=== PATIENT | female | born 1935 | race Caucasian/White ===

== ENCOUNTER 2020-01-23 09:24 | Outpatient (REF) | payer MEDICARE, MEDICAID, SELFPAY ==
[2020-01-23 10:31] LABS: MANUAL DIFF FLAG NO
[2020-01-23 10:46] LABS: Basophils Absolute Auto 0.1 X10*3/uL (0.0-0.2); Basophils Percent Auto 1.5 % (0-2); Eosinophils Absolute Auto 0.2 X10*3/uL (0.0-0.4); Hematocrit 35.9 % (37-47); Hemoglobin 11.6 g/dl (12.0-16.0); Imm Gran Abs Auto 0.03 X10*3/uL (0.00-0.03); Imm Gran Pct Auto 0.5 % (0.0-0.4); Lymphocytes Absolute Auto 1.3 X10*3/uL (1.2-4.9); Lymphocytes Percent Auto 21.8 % (20-40); Mean Corpuscular HGB Conc 32.3 g/dl (31.0-35.0); Mean Corpuscular Hemoglobin 30.4 pg (27.0-33.0); Monocytes Absolute Auto 0.4 X10*3/uL (0.1-1.2); Monocytes Percent Auto 6.6 % (2-11); Neutrophils Absolute Auto 4.1 X10*3/uL (2.0-8.3); Neutrophils Percent Auto 66.6 % (45-73); Platelet Count 210 X10*3/uL (160-400); Red Blood Count 3.82 X10*6/uL (4.20-5.50); Red Cell Distribution Width 12.6 % (11.0-16.0); White Blood Count 6.1 X10*3/uL (4.8-10.8)
[2020-01-23 11:07] LABS: Alanine Aminotransferase 22 U/L (0-31); Albumin Level 4.3 g/dL (3.5-5.0); Alkaline Phosphatase 56 U/L (39-117); Anion Gap 13 (12-20); Aspartate Amino Transferase 22 U/L (5-31); Bilirubin Total 0.6 mg/dL (0.0-1.0); Blood Urea Nitrogen 20 mg/dL (9-16); Calcium 9.1 mg/dL (8.4-10.2); Carbon Dioxide 27 mmol/L (22-29); Chloride 106 mmol/L (96-108); Cholesterol 203 mg/dL; Estimated Glomerular Filt Rate > 60; Glucose Fasting 84 mg/dL (60-99); HDL Cholesterol 63 mg/dL; LDL Cholesterol Calculated 122 mg/dl; Potassium 4.7 mmol/l (3.3-5.1); Sodium 141 mmol/L (135-145); Total Protein 6.4 g/dL (6.5-8.0); Triglycerides 93 mg/dL
== END 2020-01-23 09:25 | disposition home or self-care (01) ==
LOC: HO.LAB 09:24
PROVIDERS: PCP Internal Medicine Medical Oncology; Visit Provider Internal Medicine Medical Oncology
DX: Z00.00 Encounter for general adult medical examination without abnormal findings (principal); Z13.220 Encounter for screening for lipoid disorders
CPT/HCPCS: 36415; 80053; 80061; 85025

== ENCOUNTER 2020-12-15 07:14 | Inpatient (IN) | payer MEDICARE, MEDICAID, SELFPAY ==
[2020-12-15] VITALS (7 sets, daily range): BP systolic 126–192; BP diastolic 54–84; PULSE 71–91; RESP 16–24; TEMP 36.4–37; O2SAT 93–98; BMI 26.8
--- NOTE | ~2020-12-15 | XR_ITS ---
EXAMINATION: XR CHEST CLINICAL INFORMATION: Advanced ET tube 2 cm . Recheck. COMPARISON: 12/20/2020 TECHNIQUE: Frontal view of the chest was obtained. FINDINGS: ET tube terminates 2.5 cm from the oracio. NG tube tip terminates in the body of the stomach. The side port resides in the distal esophagus. Again seen are patchy consolidative opacities within the midlungs and right lung base, concerning for aspiration. No pneumothorax or pleural effusion. Cardiac and mediastinal contours are unchanged. Mild calcific atherosclerosis in the thoracic aorta. XR/XR chest 1V IMPRESSION: ET tube terminates 2.5 cm from the oracio. NG tube side-port terminates in the distal esophagus. Recommend advancement by 5 cm. Multifocal airspace consolidation, most consistent with aspiration
--- NOTE | ~2020-12-15 | XR_ITS ---
EXAMINATION: XR ABDOMEN KUB CLINICAL INDICATION: NG tube placement COMPARISON: CXR from 11/21/2020. Abdomen CT from 12/19/2020. TECHNIQUE: AP view of the abdomen. FINDINGS: The tip of the NG tube is in the proximal stomach. The side-port of the tube is approximately 5-6 cm distal to the esophagogastric junction. There is gas within loops of small and large bowel. A small bowel loop in the mid to lower abdomen measures up to approximately 3.5 cm, although measurement is difficult due to overlap of loops of bowel. Otherwise, the visualized bowel loops are in the normal size range. The gaseous distention of small bowel has markedly improved compared to 12/19/2020. Skin marisa project over the right inguinal region. No pneumoperitoneum is seen on this single view of the abdomen (patient in supine position). No acute findings in the visualized degenerated spine. The left femoral fixation hardware is partially included in the [id number]. XR/XR KUB IMPRESSION: * NG tube within the proximal stomach. * Significant improvement in previously observed small bowel obstruction compared 12/19/2020. There is mild residual gaseous distention of bowel.
--- NOTE | ~2020-12-15 | CT_ITS ---
EXAMINATION: CT ABDOMEN AND PELVIS WITH CONTRAST CLINICAL INFORMATION: Abdominal pain COMPARISON: None TECHNIQUE: Multidetector volumetric images were obtained from the superior aspect of the liver through the pubic symphysis following administration 85 mL of Omnipaque 350 intravenous contrast. Sagittal and coronal reformatted images were obtained on the technologist's workstation. Oral contrast: No This CT examination was performed using dose optimization techniques as appropriate, variously including the following: *Automated exposure control *Adjustment of mA and/or kV according to patient size (this includes techniques or standardized protocols for targeted exams where dose is matched to indication/reason for exam; i.e. extremities or head) *Use of iterative reconstruction technique DLP: 699 mGy-cm FINDINGS: Study limited by motion artifact. LUNG BASES: Small right pleural effusion. Right base atelectasis. Normal heart size. LIVER, GALLBLADDER, AND BILIARY TREE: The liver is normal in size, shape, and attenuation. No focal hepatic lesion or biliary ductal dilatation is present. Gallbladder either collapsed or surgically absent. No biliary ductal dilatation. PANCREAS: Unremarkable. SPLEEN: Unremarkable. ADRENAL GLANDS: Unremarkable. KIDNEYS AND URETERS: The kidneys are normal in size, shape, and attenuation. No hydronephrosis, hydroureter, or calculi seen. No perinephric stranding. BLADDER: Unremarkable. GASTROINTESTINAL TRACT: The stomach is distended with fluid. Numerous dilated fluid-filled loops of small bowel are seen throughout the abdomen with multiple air-fluid levels. There are fecalized small bowel contents leading to the transition in the right lower quadrant where a short segment of distal small bowel is seen within a right inguinal hernia. Distal to the hernia, the small bowel and colon are collapsed. ABDOMINAL WALL: Small fat-containing umbilical hernia. Right inguinal hernia containing a short segment of small bowel. The loop of small bowel within the hernia distended with fluid. There is adjacent fluid and fat stranding. LYMPH NODES: Normal. VASCULAR: Nearly circumferential calcified atherosclerotic changes of the aorta. No aneurysm or dissection. PELVIC VISCERA: Uterine calcifications likely reflect calcified leiomyomata. No adnexal mass. OSSEOUS STRUCTURES: Convex left thoracolumbar scoliosis. Multilevel degenerative changes. Grade 1 anterolisthesis of L3 on L4, L4 on L5, and L5-S1. ORIF of the left hip. Degenerative changes of the bilateral sacroiliac joints. CT/CT abdomen pelvis w con IMPRESSION: High-grade distal small bowel obstruction secondary to a short segment of small bowel within a right inguinal hernia. The loop within the hernia is distended with fluid and there is adjacent fluid and fat stranding. Recommend emergent surgical consultation. The findings and recommendations were discussed with Anup Jewell MD by telephone at 12/19/2020 5:13 PM and it was ascertained that the content and urgency of the report was understood at the time of direct communication.
--- NOTE | ~2020-12-15 | XR_ITS ---
EXAMINATION: XR CHEST CLINICAL INFORMATION: Follow-up aspiration COMPARISON: 12/20/2020 TECHNIQUE: Frontal view of the chest was obtained. FINDINGS: Left subclavian central venous catheter terminates near the cavoatrial junction. Cardiac leads overlie the chest. Lungs are well expanded. Patchy bilateral airspace opacities are present, right greater than left. These are increased from prior. No significant pleural effusion. No pneumothorax. The cardiomediastinal silhouette is unchanged, with a tortuous aorta. XR/XR chest 1V IMPRESSION: Increasing bilateral airspace opacities.
--- NOTE | ~2020-12-15 | XR_ITS ---
EXAMINATION: XR CHEST CLINICAL INFORMATION: Shortness of breath. COMPARISON: 12/15/2020 portable chest. TECHNIQUE: Frontal view of the chest was obtained. FINDINGS: Mild linear markings are seen in the left mid and lower lung sandoval. The right lung mild to moderate thoracic dextro scoliosis and multilevel degenerative changes without significant change. Is clear. The heart is mildly enlarged. Mild atherosclerosis and ectasia of the aortic arch is again noted. XR/XR chest 1V IMPRESSION: Mild linear markings in the left mid and lower lung sandoval suggesting atelectasis/scarring. No acute cardiopulmonary process.
--- NOTE | ~2020-12-15 | XR_ITS ---
EXAMINATION: XR CHEST CLINICAL INFORMATION: intrs op aspiration, ngt, et location COMPARISON: 12/18/2020 TECHNIQUE: Frontal view of the chest was obtained. FINDINGS: ET tube tip terminates 4 cm from the oracio. The NG tube tip terminates in the stomach. The side-port is situated within the distal esophagus. Consolidative patchy airspace opacities in the right midlung and right lung base as well as the left midlung may correspond to aspiration. No pneumothorax or pleural effusion. Cardiac silhouette is within normal limits in size. Calcific atherosclerosis is noted in the thoracic aorta. Bones are osteopenic. Multilevel degenerative spondylosis in the thoracic spine. XR/XR chest 1V IMPRESSION: ET tube terminates 4 cm from the oracio. The side port of the NG tube terminates in the distal esophagus. Recommend advancement by 5 cm. Patchy airspace consolidation in the right lung base and midlungs bilaterally, concerning for aspiration.
--- NOTE | ~2020-12-15 | XR_ITS ---
EXAMINATION: XR CHEST CLINICAL INFORMATION: Hemoptysis COMPARISON: Chest radiographs 02/16/2015 TECHNIQUE: Portable upright AP view of the chest was obtained. FINDINGS: Patient is slightly rotated to left. There is no pneumothorax. No free air beneath the diaphragm. The lungs are clear and the vascularity is normal. There is no airspace solid lesion or groundglass opacity or effusion. Visualized hilar and mediastinal contours are unremarkable. No acute bony abnormality. XR/XR chest 1V IMPRESSION: Unremarkable examination.
--- NOTE | ~2020-12-15 | XR_ITS ---
EXAMINATION: XR CHEST CLINICAL INFORMATION: Line placement COMPARISON: Previous chest x-ray, most recent from yesterday TECHNIQUE: Frontal view of the chest was obtained. FINDINGS: There is a new left subclavian line with tip projecting over the SVC. There is an endotracheal tube with tip 3.5 cm above the oracio. There is a nasogastric tube with tip projecting over the GE junction and should be advanced further into the stomach. The cardiac and mediastinal contours are stable. There is bilateral multilobar airspace disease probably representing pneumonia, right greater than left. This does not appear appreciably changed. There is no pleural effusion or pneumothorax. There is a thoracolumbar scoliosis and degenerative changes of the spine. XR/XR chest 1V IMPRESSION: Left subclavian line projects over SVC. No pneumothorax. Nasogastric tube tip projects over the proximal stomach/GE junction and should be advanced further into the stomach. Satisfactory position of endotracheal tube. No change in bilateral multilobar airspace disease probably representing pneumonia.
--- NOTE | ~2020-12-15 | US_ITS ---
EXAMINATION: US VENOUS WITH DOPPLER UPPER EXTREMITY, LEFT CLINICAL INFORMATION: Left upper extremity swelling. COMPARISON: None TECHNIQUE: Ultrasound of the upper extremity is performed using compression sonography and color and pulse Doppler flow with assessment of augmentation of flow. There is also imaging and Doppler assessment of the jugular and subclavian veins. Spectral analysis with color-flow imaging is performed. FINDINGS: The left subclavian vein was suboptimally evaluated secondary to the presence of a left-sided port. The left internal jugular vein shows positive occlusive deep venous thrombosis. The left axillary, brachial and basilic veins were not seen. The proximal and distal left cephalic vein were suboptimally visualized. The left radial and ulnar veins are patent. Mild to moderate subcutaneous edema is seen in the left forearm. If the patient's symptoms progress, a followup ultrasound in 5 -7 days might be of value to exclude proximal propagation from a nonvisualized distal arm vein. US/US venous duplex UE LT IMPRESSION: 1. Limited study showing positive deep venous thrombosis in the left internal jugular vein. 2. Suboptimal evaluation of the left subclavian, axillary and brachial veins.
--- NOTE | 2020-12-15 07:28 | ECG_ITS ---
Test Reason : ABDOMINAL PAIN Blood Pressure : / mmHG Vent. Rate : 075 BPM Atrial Rate : 000 BPM P-R Int : 000 ms QRS Dur : 098 ms QT Int : 392 ms P-R-T Axes : 000 039 056 degrees QTc Int : 437 ms Atrial fibrillation with a competing junctional pacemaker Abnormal ECG No previous ECGs available Referred By: Stephen Dooley Electronically Signed By:TYRONE SU MD
--- NOTE | 2020-12-15 07:31 | ED_ITS ---
HPI - Nausea/Vomiting/Diarrhea General Chief complaint: Nausea/Vomiting/Diarrhea Stated complaint: N/V/ABD PAIN X'S 3 DAYS, NO: FEVER/CHILLS/EXPOSURE Time Seen by Provider: 12/15/20 07:27 Source: patient Mode of arrival: ambulatory Limitations: no limitations History of Present Illness HPI Narrative: 85-year-old female came in for evaluation of vomiting. Symptoms started 3 days ago with coffee-ground vomiting constantly for the past 3 days, vomiting is worsening with p.o. intake, associated with nausea but no di arrhea, mild epigastric pain. Never had this symptoms in the past, patient declined any new medication. Patient declined drinking alcohol. Related Data Home Medications Medication Instructions Recorded Confirmed budesonide-formoterol HFA 80 2 puff INHALATION BID 12/15/20 12/15/20 mcg-4.5 mcg/actuation aerosol inhaler (Symbicort) Allergies Allergy/AdvReac Type Severity Reaction Status Date / Time No Known Allergies Allergy Unverified 10/30/19 16:28 Shellfish Allergy Unknown Uncoded 06/15/15 00:00 Review of Systems Review of Systems: All other systems are reviewed and are negative Constitutional: Reports as per HPI and Reports no additional constitutional complaints Eyes: Reports as per HPI and Reports no additional eye complaints Reports system reviewed and no additional complaints, except as documented Cardiovascular: Reports as per HPI and Reports no additional cardiovascular complaints Respiratory: Reports as per HPI and Reports no additional respiratory complaints Gastrointestinal: Reports as per HPI and Reports no additional gastrointestinal complaints Genitourinary: Reports no additional female genitourinary complaints Musculoskeletal: Reports no additional musculoskeletal complaints Skin/Breast: Reports system reviewed and no additional complaints, except as docu Psychiatric: Reports no additional psychiatric complaints Endocrine: Reports no additional endocrine complaints Hematologic/Lymphatic: Reports no additional hematologic/lymphatic complaints Allergic/Immunologic: Reports no additional allergic/immunologic complaints Reports system reviewed and no additional complaints, except as documented and Reports Abnormal speech present [facility] Social History Social History Smoked in Last 30 Days: No Use of substances other than those prescribed or required for medical reasons: No Advance Directives: Yes Advance Directives Information Provided: Yes Advance Directives on File: No Physical Exam Vital Signs: Vital Signs: Last Vital Signs Temp 97.8 F 12/15/20 07:21 Pulse 71 12/15/20 11:06 Resp 24 H 12/15/20 08:53 BP 140/77 H 12/15/20 11:06 Pulse Ox 96 12/15/20 08:53 Body Mass Index 26.8 Vital signs have been reviewed as appeared to be correct. Blood pressure normal. Heart rate normal. Respiration rate normal. Temperature normal. Oxygen saturation normal. Appearance: Alert. Oriented X3. No acute distress. Head: Normal external exam. Normocephalic. Atraumatic. No [place] signs noted. No raccoon eyes noted Eyes: PERRLA. EOMI. Conjunctiva and sclera normal. Eyelids normal. ENT: TM's Normal. Pharynx normal. Uvula midline. Moist mucous membranes. No trismus noted. No drooling noted. No muffled voice noted. Neck: Normal inspection. Neck supple. FROM. No adenopathy. Thyroid Normal. No meningeal signs. No neck mass noted. CVS: Normal heart rate and rhythm. Heart sound normal. No murmurs noted. Pulses normal throughout. Respiratory: No respiratory distress. Painless inspiration. Breath sounds normal. No wheezes/rales/rhonchi noted. Chest nontender. No accessory muscle usage noted or decreased air movement noted. Abdomen: Soft, mild epigastric tenderness, no rebound tenderness, no guarding. Bowel sounds normal in all 4 quadrants. No distention noted. No organomegaly noted. No visible injury noted. Back: No CVA tenderness. Full range of motion noted. Skin: Skin warm and dry. Normal skin color. Normal skin turgor. No rash es/lesions/lacerations noted. Extremities: No lower extremity edema. Extremities exhibit normal range of motion. Extremities nontender. Neuro: Oriented X 3. Cranial nerve exam: II-XII are grossly intact No motor deficit. No sensory deficit. Reflexes normal. Course Course Course Narrative: Assessment and plan. [age] year female came in with coffee-ground vomiting and decreased p.o. intake, patient while in the emergency department has no vomiting, patient stable with signs, stable H&H. Will start the patient on PPI, admit for GI consultation. Hyponatremia will gently hydrate with normal saline at a slow rate. MDM - Nausea/Vomiting/Diarrhea Lab Data Attestation: I reviewed the patient's lab results. Result diagrams: 12/15/20 07:39 12/15/20 07:39 Labs: Lab Results 12/15/20 12/15/20 12/15/20 Range/Units 07:34 07:39 07:39 WBC 15.1 H (4.8-10.8) X10*3/uL RBC 4.54 (4.20-5.50) X10*6/uL Hgb 13.7 (12.0-16.0) g/dl Hct 40.1 (37.0-47.0) % MCV 88.3 (80.0-98.0) fL MCH 30.2 (27.0-33.0) pg MCHC 34.2 (31.0-35.0) g/dl RDW 11.9 (11.0-16.0) % Plt Count 233 (160-400) X10*3/uL MPV 9.5 (9.4-12.3) fL Immature Gran % (Auto) 0.5 H (0.0-0.4) % Neut % (Auto) 84.0 H (45-73) % Lymph % (Auto) 6.5 L (20-40) % [place] % (Auto) 8.7 (2-11) % Eos % (Auto) 0.1 (0-4) % Baso % (Auto) 0.2 (0-2) % Lymph # (Auto) 1.0 L (1.2-4.9) X10*3/uL [place] # (Auto) 1.3 H (0.1-1.2) X10*3/uL Eos # (Auto) 0.0 (0.0-0.4) X10*3/uL Baso # (Auto) 0.0 (0.0-0.2) X10*3/uL Abs Immat Gran (auto) 0.07 H (0.00-0.03) X10*3/uL Absolute Neuts (auto) 12.67 H (2.0-8.3) x10*3/uL Absolute Nucleated RBC 0.000 (0.0-0.012) X10*3/uL Nucleated RBC % (auto) 0.0 (0.0-0.2) /100WBC PT (9.9-13.0) SEC INR (0.9-1.1) APTT (24.1-38.0) SEC Sodium 123 L (135-145) mmol/L Potassium 3.6 (3.3-5.1) mmol/L Chloride 86 L (96-108) mmol/L Carbon Dioxide 26 (22-29) mmol/L Anion Gap 15 (12-20) BUN 23 H (9-16) mg/dL Creatinine 0.75 (0.5-1.4) mg/dL Estim Creat Clear Calc 56.9 Estimated GFR > 60 Random Glucose 130 H (60-115) mg/dL Calcium 8.9 (8.4-10.2) mg/dL Total Bilirubin 1.4 H (0.0-1.0) mg/dL Direct Bilirubin 0.6 H (0.0-0.5) mg/dL AST 31 D (5-31) U/L ALT 24 (0-31) U/L Alkaline Phosphatase 60 (39-117) U/L Troponin I High Sens (<3.5-17.0) ng/L Total Protein 6.3 L (6.5-8.0) g/dL Albumin 4.1 (3.5-5.0) g/dL Lipase 28 (8-78) U/L Urine Color Urine Appearance Urine pH (5.0-8.0) Ur Specific [place] (1.005-1.025) Urine Protein (NEG-TRACE) MG/DL Urine Glucose (UA) (NEG) MG/DL Urine Ketones (NEG) MG/DL Urine Blood (NEG) Urine Nitrite (NEG) Ur Leukocyte Esterase (NEG) COVID-19 ([facility]) Negative (Negative) COVID-19 Clin Com See Note 12/15/20 12/15/20 12/15/20 Range/Units 07:39 07:39 09:25 WBC (4.8-10.8) X10*3/uL RBC (4.20-5.50) X10*6/uL Hgb (12.0-16.0) g/dl Hct (37.0-47.0) % MCV (80.0-98.0) fL MCH (27.0-33.0) pg MCHC (31.0-35.0) g/dl RDW (11.0-16.0) % Plt Count (160-400) X10*3/uL MPV (9.4-12.3) fL Immature Gran % (Auto) (0.0-0.4) % Neut % (Auto) (45-73) % Lymph % (Auto) (20-40) % [place] % (Auto) (2-11) % Eos % (Auto) (0-4) % Baso % (Auto) (0-2) % Lymph # (Auto) (1.2-4.9) X10*3/uL [place] # (Auto) (0.1-1.2) X10*3/uL Eos # (Auto) (0.0-0.4) X10*3/uL Baso # (Auto) (0.0-0.2) X10*3/uL Abs Immat Gran (auto) (0.00-0.03) X10*3/uL Absolute Neuts (auto) (2.0-8.3) x10*3/uL Absolute Nucleated RBC (0.0-0.012) X10*3/uL Nucleated RBC % (auto) (0.0-0.2) /100WBC PT 11.4 (9.9-13.0) SEC INR 1.0 (0.9-1.1) APTT 27.5 (24.1-38.0) SEC Sodium (135-145) mmol/L Potassium (3.3-5.1) mmol/L Chloride (96-108) mmol/L Carbon Dioxide (22-29) mmol/L Anion Gap (12-20) BUN (9-16) mg/dL Creatinine (0.5-1.4) mg/dL Estim Creat Clear Calc Estimated GFR Random Glucose (60-115) mg/dL Calcium (8.4-10.2) mg/dL Total Bilirubin (0.0-1.0) mg/dL Direct Bilirubin (0.0-0.5) mg/dL AST (5-31) U/L ALT (0-31) U/L Alkaline Phosphatase (39-117) U/L Troponin I High Sens 6.4 (<3.5-17.0) ng/L Total Protein (6.5-8.0) g/dL Albumin (3.5-5.0) g/dL Lipase (8-78) U/L Urine Color YELLOW Urine Appearance HAZY Urine pH 6.5 (5.0-8.0) Ur Specific [place] 1.010 (1.005-1.025) Urine Protein TRACE (NEG-TRACE) MG/DL Urine Glucose (UA) NEG (NEG) MG/DL Urine Ketones 15 (NEG) MG/DL Urine Blood NEG (NEG) Urine Nitrite NEG (NEG) Ur Leukocyte Esterase NEG (NEG) COVID-19 ([facility]) (Negative) COVID-19 Clin Com Discharge Plan Discharge Clinical Impression: Hematemesis, Acute hyponatremia Patient Disposition: Admitted As Inpatient Prescriptions: No Action budesonide-formoterol [Symbicort] 80-4.5 mcg/actuation HFA aerosol inhaler 2 puff inhalation BID RF: 0
[2020-12-15 07:44] LABS: MANUAL DIFF FLAG NO
[2020-12-15 07:45] LABS: Basophils Percent Auto 0.2 % (0-2); Eosinophils Percent Auto 0.1 % (0-4); Hematocrit 40.1 % (37.0-47.0); Hemoglobin 13.7 g/dl (12.0-16.0); Imm Gran Abs Auto 0.07 X10*3/uL (0.00-0.03); Imm Gran Pct Auto 0.5 % (0.0-0.4); Lymphocytes Percent Auto 6.5 % (20-40); Mean Corpuscular HGB Conc 34.2 g/dl (31.0-35.0); Mean Corpuscular Hemoglobin 30.2 pg (27.0-33.0); Mean Corpuscular Volume 88.3 fL (80.0-98.0); Mean Platelet Volume 9.5 fL (9.4-12.3); Monocytes Absolute Auto 1.3 X10*3/uL (0.1-1.2); Monocytes Percent Auto 8.7 % (2-11); Neutrophils Absolute Auto 12.67 x10*3/uL (2.0-8.3); Platelet Count 233 X10*3/uL (160-400); Red Blood Count 4.54 X10*6/uL (4.20-5.50); Red Cell Distribution Width 11.9 % (11.0-16.0); White Blood Count 15.1 X10*3/uL (4.8-10.8)
[2020-12-15] MEDS: Pantoprazole Sodium 40 MG/10 ML VIAL IVPUSH (07:46)
[2020-12-15] MEDS: ondansetron HCL 4 MG/2 ML VIAL IVPUSH (07:46)
[2020-12-15] MEDS: 0.9 % Sodium Chloride 1,000 ML 999 ML IVCONT ×2 (07:46→12:08)
[2020-12-15 07:53] LABS: Prothrombin Time 11.4 SEC (9.9-13.0)
[2020-12-15 07:56] LABS: Partial Thromboplastin Time 27.5 SEC (24.1-38.0)
[2020-12-15 08:00] LABS: COVID-19 Test Negative (Negative); IDNOW Serial# 9DD0AD1C
[2020-12-15 08:16] LABS: Troponin-I High Sensitivity 6.4 ng/L (<3.5-17.0)
--- NOTE | 2020-12-15 08:16 | PHA.MEDREC ---
Pharmacy Consult ? Medication Reconciliation Pharmacy has completed the medication reconciliation. Thanks Gilberto Singleton Pharm D
[2020-12-15 08:26] LABS: Alanine Aminotransferase 24 U/L (0-31); Albumin Level 4.1 g/dL (3.5-5.0); Alkaline Phosphatase 60 U/L (39-117); Anion Gap 15 (12-20); Aspartate Amino Transferase 31 U/L (5-31); Bilirubin Direct 0.6 mg/dL (0.0-0.5); Bilirubin Total 1.4 mg/dL (0.0-1.0); Blood Urea Nitrogen 23 mg/dL (9-16); Calcium 8.9 mg/dL (8.4-10.2); Carbon Dioxide 26 mmol/L (22-29); Chloride 86 mmol/L (96-108); Creatinine Clr Calc Pharmacy 56.9; Estimated Glomerular Filt Rate > 60; Glucose Random 130 mg/dL (60-115); Lipase 28 U/L (8-78); Potassium 3.6 mmol/L (3.3-5.1); Sodium 123 mmol/L (135-145); Total Protein 6.3 g/dL (6.5-8.0)
[2020-12-15 09:34] LABS: Appearance Urine HAZY; Color Urine YELLOW; Glucose Urine UA NEG (NEG); Leukocyte Esterase Urine NEG (NEG); Nitrite Urine NEG (NEG); PH 6.5 (5.0-8.0); Urine Blood NEG (NEG); Urine Ketones 15 MG/DL (NEG); Urine Protein TRACE MG/DL (NEG-TRACE)
--- NOTE | 2020-12-15 16:24 | PM.GICN ---
History of Present Illness Data of Consult Service Date: 12/15/20 Requesting physician: Anup Jewell Primary Care Provider: Nayan Chavez MD HPI Reason for consult: coffee ground emesis 85 yr old f previously well being assessed for nausea and vomiting with coffee ground emesis She had been well up till weekend where she had several episodes of forceful vomiting. Later she noted several episodes of black colored emesis. She denied reflux, had mild epigastric pain. Appetite had been reduced. She denies melena, rectal bleeding, chest pain or SOB. She has been taking ibuprofen for years BID for joint pain on a daily basis. Labs revealed HGB 13, with hyponatremia of 123. BUn mildly elevated. Review of Systems Review of Systems: All other systems are reviewed and are negative Constitutional: Reports as per HPI and Reports no additional constitutional complaints Eyes: Reports as per HPI and Reports no additional eye complaints Reports system reviewed and no additional complaints, except as documented Cardiovascular: Reports as per HPI and Reports no additional cardiovascular complaints Respiratory: Reports as per HPI and Reports no additional respiratory complaints Gastrointestinal: Reports as per HPI and Reports no additional gastrointestinal complaints Genitourinary: Reports no additional female genitourinary complaints Musculoskeletal: Reports no additional musculoskeletal complaints Skin/Breast: Reports system reviewed and no additional complaints, except as docu Psychiatric: Reports no additional psychiatric complaints Endocrine: Reports no additional endocrine complaints Hematologic/Lymphatic: Reports no additional hematologic/lymphatic complaints Allergic/Immunologic: Reports no additional allergic/immunologic complaints Reports system reviewed and no additional complaints, except as documented and Reports Abnormal speech present Yes all other systems are reviewed and are negative PMFSH Family History Pertinent family history: Denies any family history Family history: reviewed and not pertinent Surgical History Surgical History (Updated 12/16/20 @ 05:57 by Jessica Wahl MD) No pertinent past surgical history Social History Social History Household Members: Other Housing: Other Housing Other:: [facility] Do you presently have visiting nurse or other home services: No Patient Tobacco Use Status: Never used Tobacco Second Hand Smoke Exposure: No Advance Directives Date on File: 12/16/20 service: No Current occupational status: other Meds Allergies Allergy/AdvReac Type Severity Reaction Status Date / Time No Known Allergies Allergy Unverified 10/30/19 16:28 Shellfish Allergy Unknown Uncoded 06/15/15 00:00 Active Medications: Current Medications Pharmacy Consult (Consult Rx Perform Med Rec) 1 each MISCELLANE ONCE PRN PRN Reason: Consult order Home Medications Medication Instructions Recorded Confirmed Last Taken Type budesonide-formoterol HFA 80 2 puff INHALATION BID 12/15/20 12/15/20 Unknown History mcg-4.5 mcg/actuation aerosol inhaler (Symbicort) Physical Exam Vital Signs: Vital Signs: Last Vital Signs Temp 97.6 F 12/15/20 14:35 Pulse 88 12/15/20 14:35 Resp 24 H 12/15/20 14:35 BP 144/68 H 12/15/20 14:35 Pulse Ox 93 12/15/20 14:35 Body Mass Index 26.8 EXAM: GENERAL: The patient is well developed and nontoxic. VITAL SIGNS:see workflow HEENT: Nonicteric sclerae, PERRLA, EOMI. Oropharynx clear. Moist mucous membranes. Conjunctivae appear well perfused. No thyroid mass. CHEST: Chest wall is nontender. HEART: Regular rate and rhythm without murmurs. LUNGS: Clear to auscultation bilaterally. ABDOMEN: Soft, positive bowel sounds, nontender, no organomegaly.no flank tenderness SKIN: No rash, no excessive bruising, petechiae, or purpura. NEUROLOGIC: Cranial nerves II-XII intact without motor/sensory deficit. PSych--nml Const: Other: No acute distress General: cooperative, no acute distress and alert Orientation/consciousness: patient oriented x3 Limitations: No language barrier HENMT: Other: Membranes moist oropharynx clear Head: Yes normocephalic and Yes atraumatic Eyes: General: appearance normal, both eyes and all related structures Pupils: Equal, round and reactive pupils present EOM: EOMs intact bilaterally Neck: Neck: Yes supple Resp: Other: Clear to auscultation bilaterally no rales rhonchi or wheezes Effort & Inspection: normal respiratory effort Auscultation: clear to auscultation bilaterally and diminished lung sounds Cardio: Other: No S4; positive S1-S2; no S3 murmurs or gallops Jugular venous distension: no JVD Rate: regular rate Rhythm: regular rhythm GI: Other: Soft nontender nondistended with normoactive bowel sounds Palpation (GI): Soft to palpation Auscultation: normal bowel sounds Skin: General skin exam: no rashes or lesions noted Neuro: Other: Cranial nerves 2-12 grossly intact as tested. Motor is 5/5 all extremities. Sensation is intact. Cognition for apparent General: patient oriented x3 and moves all extremities Cranial nerves: Yes Equal, round and reactive pupils present Cognition (Neuro): normal cognition Extrem: Other: No edema bilaterally General: Yes normal to inspection and Yes no pedal edema Results Labs CBC & Chem 7: 12/17/20 06:07 12/17/20 06:07 Labs: Short CBC 12/15/20 Range/Units 07:39 WBC 15.1 H (4.8-10.8) X10*3/uL Hgb 13.7 (12.0-16.0) g/dl Hct 40.1 (37.0-47.0) % Plt Count 233 (160-400) X10*3/uL BMP 12/15/20 07:39 Sodium 123 L Potassium 3.6 Chloride 86 L Carbon Dioxide 26 BUN 23 H Creatinine 0.75 Calcium 8.9 Liver Function 12/15/20 Range/Units 07:39 Total Bilirubin 1.4 H (0.0-1.0) mg/dL Direct Bilirubin 0.6 H (0.0-0.5) mg/dL AST 31 D (5-31) U/L ALT 24 (0-31) U/L Alkaline Phosphatase 60 (39-117) U/L Albumin 4.1 (3.5-5.0) g/dL Urine 12/15/20 Range/Units 09:25 Urine Color YELLOW Urine Appearance HAZY Urine pH 6.5 (5.0-8.0) Ur Specific [place] 1.010 (1.005-1.025) Urine Protein TRACE (NEG-TRACE) MG/DL Urine Glucose (UA) NEG (NEG) MG/DL Assessment and Plan (1) Hematemesis: Status: Acute (2) Acute hyponatremia: Status: Acute 1/ Nausea and vomiting with coffee ground emesis by description, could be MW tear or PUD related to chrinic nsaid use, ddx: neoplasia, erosive esophagiits, dieulafoy. She has hyponatremia prob from vol contraction and salt losses from vomiting. Plan: 1/ If HGB stable and no further emesis can allow food 2/ Commence PPI and sucralfate PO 3/ correct low sodium, and may consider EGD Sunday or early o/p depending on her response to treatment Procedures Date of Service Date of Service: 12/15/20
--- NOTE | 2020-12-15 19:39 | PC.NURSE ---
RN assumed care at 1900. Pt alert and oriented x4, calm and cooperative. Pt denies pain at this time. Pt denies N/V. Pt ate small amounts of solid food and milk and tolerated well, denies N/V. Pt aware of being admitted. IV intact. Vitals stable. Pt resting in stretcher without complaints at this time. Will continue to monitor.
[2020-12-16] VITALS (7 sets, daily range): BP systolic 127–143; BP diastolic 56–73; PULSE 68–95; RESP 17–20; TEMP 36–37.1; O2SAT 92–99
--- NOTE | 2020-12-16 | ECG_ITS ---
Test Reason : RHYTHM Blood Pressure : / mmHG Vent. Rate : 080 BPM Atrial Rate : 080 BPM P-R Int : 154 ms QRS Dur : 098 ms QT Int : 364 ms P-R-T Axes : 074 020 070 degrees QTc Int : 419 ms Sinus rhythm with marked sinus arrhythmia and Premature atrial complexes Intra-ventricular conduction delay Abnormal ECG When compared with ECG of 15-DEC-2020 07:59, Sinus rhythm has replaced Atrial fibrillation Referred By: Nathan Carrasco Electronically Signed By:TYRONE SU MD
[2020-12-16] MEDS: 0.9 % Sodium Chloride Flush 3 ML SYRINGE IVFLUSH ×3 (00:06→16:54)
[2020-12-16] MEDS: Acetaminophen 325 MG TABLET 650 MG PO (04:49)
[2020-12-16] MEDS: Pantoprazole Sodium 40 MG/10 ML VIAL IVPUSH ×2 (05:51→16:54)
--- NOTE | 2020-12-16 05:52 | PM.IMHP ---
History of Present Illness Date of Service: 12/15/20 Chief Complaint: Vomiting This is a pleasant 85-year-old female with no significant past medical history presents to the hospital with complaints of intractable vomiting. Patient reports that her symptoms started few days ago, they have now developed into coffee-ground emesis. She reports epigastric abdominal pain that also started few days ago. Patient reports that she uses ibuprofen twice a day for the past few years for history of arthritis. She denies having any diarrhea, no melena, no bright red blood per rectum, no headache, no change in vision, no dizziness, no shortness of breath, no chest pain, no urinary symptoms and no lower extremity edema On arrival to the ED patient hemodynamically stable with no significant abnormal vitals Labs are significant for hemoglobin of 13.7, hematocrit of 40.1, sodium of 123, BUN of 23, UA negative. Shows unremarkable results, EKG shows AFib with a ventricular rate of 75 no previous EKG for comparison. When asked patient about any past medical history she denied and reports that she only takes an inhaler sometimes because she has sensation of choking although denies having asthma or COPD. Review of Systems Review of Systems: Yes all other systems are reviewed and are negative PMFSH Pertinent family history: Denies any family history Surgical History (Updated 12/16/20 @ 05:57 by Jessica Wahl MD) No pertinent past surgical history Social History Smoked in Last 30 Days: No Use of substances other than those prescribed or required for medical reasons: No Advance Directives: Yes Advance Directives Information Provided: Yes Advance Directives on File: No Meds Allergies Allergy/AdvReac Type Severity Reaction Status Date / Time No Known Allergies Allergy Unverified 10/30/19 16:28 Shellfish Allergy Unknown Uncoded 06/15/15 00:00 Active Medications: Current Medications Acetaminophen (Acetaminophen 325 Mg Tablet) 650 mg PO Q6H PRN PRN Reason: Pain, Mild (Pain Scale 1-3) Last Admin: 12/16/20 04:49 Dose: 650 mg Documented by: Docusate Sodium (Docusate Sodium 100 Mg Capsule) 100 mg PO DAILY PRN PRN Reason: Constipation Ondansetron HCl (Ondansetron Hcl 4 Mg/2 Ml Vial) 4 mg IVPUSH Q8H PRN PRN Reason: Nausea and Vomiting Pantoprazole Sodium (Pantoprazole Sodium 40 Mg/10 Ml Vial) 40 mg IVPUSH BID@0630,1630 [facility] Pharmacy Consult (Consult Rx Perform Med Rec) 1 each MISCELLANE ONCE PRN PRN Reason: Consult order Sodium Chloride (0.9 % Sodium Chloride Flush 3 Ml Syringe) 3 ml IVFLUSH QSHIFT [facility] Last Admin: 12/16/20 00:06 Dose: 3 ml Documented by: Sucralfate (Sucralfate 1 Gm Tablet) 1 gm PO BIDAC [facility] Home Medications Medication Instructions Recorded Confirmed Last Taken Type budesonide-formoterol HFA 80 2 puff INHALATION BID 12/15/20 12/15/20 Unknown History mcg-4.5 mcg/actuation aerosol inhaler (Symbicort) Physical Exam Vital Signs and Narrative: Vital Signs: Last Vital Signs Temp 98.7 F 12/16/20 04:00 Pulse 81 12/16/20 04:00 Resp 20 12/16/20 04:00 BP 141/66 H 12/16/20 04:00 Pulse Ox 95 12/16/20 04:00 Body Mass Index 26.8 Const: General: cooperative and no acute distress Orientation/consciousness: patient oriented x3 Eyes: General: appearance normal, both eyes and all related structures Pupils: Equal, round and reactive pupils present Resp: Effort & Inspection: normal respiratory effort Auscultation: clear to auscultation bilaterally Cardio: Rate: regular rate Rhythm: regular rhythm GI: Palpation (GI): Soft to palpation Auscultation: normal bowel sounds Skin: General skin exam: no rashes or lesions noted Neuro: General: patient oriented x3 Cranial nerves: Yes Equal, round and reactive pupils present Cognition (Neuro): normal cognition Extrem: General: Yes normal to inspection and Yes no pedal edema Results Labs CBC and Chem 7: 12/15/20 07:39 12/15/20 07:39 Labs: Laboratory Results - last 24 hr 12/15/20 12/15/20 12/15/20 07:34 07:39 07:39 MCV 88.3 MCH 30.2 MCHC 34.2 RDW 11.9 Plt Count 233 MPV 9.5 Immature Gran % (Auto) 0.5 H Neut % (Auto) 84.0 H Lymph % (Auto) 6.5 L [place] % (Auto) 8.7 Eos % (Auto) 0.1 Baso % (Auto) 0.2 Lymph # (Auto) 1.0 L [place] # (Auto) 1.3 H Eos # (Auto) 0.0 Baso # (Auto) 0.0 Abs Immat Gran (auto) 0.07 H Absolute Neuts (auto) 12.67 H Absolute Nucleated RBC 0.000 Nucleated RBC % (auto) 0.0 PT INR APTT Anion Gap 15 Estim Creat Clear Calc 56.9 Estimated GFR > 60 Random Glucose 130 H Calcium 8.9 Total Bilirubin 1.4 H Direct Bilirubin 0.6 H AST 31 D ALT 24 Alkaline Phosphatase 60 Troponin I High Sens Total Protein 6.3 L Albumin 4.1 Lipase 28 Urine Color Urine Appearance Urine pH Ur Specific [place] Urine Protein Urine Glucose (UA) Urine Ketones Urine Blood Urine Nitrite Ur Leukocyte Esterase COVID-19 ([facility]) Negative COVID-19 Clin Com See Note 12/15/20 12/15/20 12/15/20 07:39 07:39 09:25 MCV MCH MCHC RDW Plt Count MPV Immature Gran % (Auto) Neut % (Auto) Lymph % (Auto) [place] % (Auto) Eos % (Auto) Baso % (Auto) Lymph # (Auto) [place] # (Auto) Eos # (Auto) Baso # (Auto) Abs Immat Gran (auto) Absolute Neuts (auto) Absolute Nucleated RBC Nucleated RBC % (auto) PT 11.4 INR 1.0 APTT 27.5 Anion Gap Estim Creat Clear Calc Estimated GFR Random Glucose Calcium Total Bilirubin Direct Bilirubin AST ALT Alkaline Phosphatase Troponin I High Sens 6.4 Total Protein Albumin Lipase Urine Color YELLOW Urine Appearance HAZY Urine pH 6.5 Ur Specific [place] 1.010 Urine Protein TRACE Urine Glucose (UA) NEG Urine Ketones 15 Urine Blood NEG Urine Nitrite NEG Ur Leukocyte Esterase NEG COVID-19 ([facility]) COVID-19 Clin Com ECG Interpretation: Atrial fibrillation Imaging Radiologist's Impressions: Impressions Chest X-Ray 12/15/20 07:27 IMPRESSION: Unremarkable examination. Assessment and Plan (1) New onset a-fib: Status: Acute (2) Hematemesis: Status: Acute (3) Acute hyponatremia: Status: Acute A 5-year-old female who denies any past medical history presents to the hospital with coffee-ground MS # coffee-ground emesis/hematemesis - most likely secondary to upper GI bleed - patient reports history of taking ibuprofen twice a day for many years for arthritic pain - elevated BUN - stable hemoglobin - evaluated by GI, will start on PPI IV b.i.d., as well as sucralfate - monitor H&H # acute hyponatremia - unclear etiology - urine studies - start on NS - follow BMP - nephrology consult # new onset AFib - EKG shows AFib - patient denies history - has chads Vasc score of 3- female, age - will obtain echocardiogram and consult Cardiology - will hold off on anticoagulation at this time given her hematemesis DVT prophylaxis: SCDs Quality Stroke Does the patient have a stroke diagnosis?: No VTE Prior VTE?: No VTE Risk Level:: Medical - moderate - high VTE Device Contraindication: N/A - Device Ordered VTE Drug Contraindication: Treatment Not Indicated
[2020-12-16] MEDS: 0.9 % Sodium Chloride 1,000 ML 80 ML IVCONT (07:42)
[2020-12-16] MEDS: Sucralfate 1 GM TABLET PO ×2 (07:42→16:55)
--- NOTE | 2020-12-16 08:30 | CA_ITS ---
Transthoracic Echocardiogram Patient (Last, First, Middle): Lori Dallas, Gender: Female Date of : 1935 Age: 85 Procedure Date: 12/16/2020 Procedure Type: Transthoracic Echocardiogram Location: [facility] Height: 167.64 cm Weight: 75.3 kg BSA: 1.85 m2 Heart Rate: bpm BP: 141 / 66 mmHg Mechanical Repair Worker: VIANCA Kuo MD: Jessica Wahl MD It Risk Analyst: Nathan Carrasco MD Symptoms: new onset A fib Study Quality: Fair ECG Rhythm: Sinus with extra beats Conclusions: - 1. Normal LV systolic function with grade 1 diastolic dysfunction 2. Mild aortic regurgitation 3. Normal RV systolic pressure 4. No pericardial effusion Findings Left Ventricle Normal left ventricular size, thickness, and systolic function. The visually estimated ejection fraction is between 55-60%. Spectral Doppler is indicative of an impaired relaxation filling pattern. E/E prime ratio is <8, consistent with normal filling pressures. Evidence suggests grade I (mild) diastolic dysfunction. Right Ventricle Normal right ventricular cavity size and systolic function. Atria The left atrium is normal in size. Interatrial shunt cannot be excluded. The right atrium is normal in size. Aortic Valve There is mild calcification of the aortic valve. There is mild thickening of the aortic valve. There is no aortic valve stenosis. There is mild aortic valve regurgitation. Mitral Valve There is mild anterior and posterior mitral leaflet thickening. There is mild mitral annular calcification. There is trace mitral valve regurgitation. There is no mitral valve stenosis. Pulmonic Valve The pulmonic valve was not well visualized. Tricuspid Valve Likely normal tricuspid valve structure and function. There is trace tricuspid valve regurgitation. The right ventricular systolic pressure is normal. There is no evidence of pulmonary hypertension. Great Vessels All visible segments of the aorta are normal in size. The pulmonary artery was not well visualized. Venous The inferior vena cava is normal in size and collapses greater than 50% with inspiration. Pericardium/Pleural There is no evidence of pericardial effusion. Prior Study Comparison No significant change compared to prior study dated: 03/26/2015. Measurements 2D Linear Measurements IVSd: 0.94 0.6-0.9/0.6-1.0 cm LVIDd: 3.73 3.9-5.3/4.2-5.9 cm LVIDd Index: 2.02 2.4-3.2/2.2-3.1 cm/m2 LVIDs: 2.74 2.0-3.6 cm LVPWd: 0.99 0.7-1.1 cm Ao Root: 3.30 2.1-3.5 cm LA Diam: 3.20 2.7-3.8/3.0-4.0 cm LAIDs Index: 1.73 1.5-2.3 cm/m2 LV Mass: 135.00 67-162/88-224 g LV Mass Index: 72.97 43-95/49-115 g/m2 LVOT Diam: 2.00 3.0+(-)1.3 cm Mitral Valve MV Pk E: 0.66 MV PK A: 0.81 MV Decel Time: 261.00 E/A: 0.80 E'Lateral: 8.27 E'Medial: 5.11 E/E' Med: 12.90 E/E' Lat: 8.00 PHT: 77.00 MVA PHT: 2.86 Decel [place]: 2.52 Aortic Valve AoV Pk Logan: 1.66 AoV Mn Logan: 1.12 AoV VTI: 0.29 AoV Pk Grad: 11.00 Aov Mn Grad: 6.00 IRIS Cont.VTI: 1.82 AI Pk Logan: 4.57 AI [place]: 3.51 LVOT LVOT Pk Logan: 1.00 LVOT Mn Logan: 0.64 LVOT VTI: 0.17 LVOT Pk Grad: 4.00 LVOT Mn Grad: 2.00 LVOT Diam: 2.00 LVOT Area: 3.14 Diastolic Function MV Pk E: 0.66 MV Pk A: 0.81 E/A: 0.80 E'Medial: 5.11 E/E' Med: 12.90 E' Laterial: 8.27 E/E' Lat: 8.00 Right Ventricle TAPSE (mm): 2.48 TVS' Logan: 16.90 Tricuspid Valve TR Pk Logan: 2.82 TR Pk Grad: 32.00 RA Press: 3.00 RVSP: 35.00 Great Vessels Aorta Ao Root-2D: 3.30 2.0-3.7 cm Ao Asc: 3.00 2.1-3.4 cm Updated in Other Vendor System with Status of Final Nathan Carrasco MD electronically signed on 12/16/2020 12:02:08 PM with status of Final
[2020-12-16 09:26] LABS: Basophils Percent Auto 0.2 % (0-2); Eosinophils Percent Auto 0.1 % (0-4); Hematocrit 39.5 % (37.0-47.0); Hemoglobin 13.4 g/dl (12.0-16.0); Imm Gran Abs Auto 0.03 X10*3/uL (0.00-0.03); Imm Gran Pct Auto 0.2 % (0.0-0.4); Lymphocytes Absolute Auto 0.8 X10*3/uL (1.2-4.9); Lymphocytes Percent Auto 6.1 % (20-40); MANUAL DIFF FLAG SCAN; Mean Corpuscular HGB Conc 33.9 g/dl (31.0-35.0); Mean Corpuscular Hemoglobin 30.1 pg (27.0-33.0); Mean Corpuscular Volume 88.8 fL (80.0-98.0); Mean Platelet Volume 10.1 fL (9.4-12.3); Monocytes Absolute Auto 1.6 X10*3/uL (0.1-1.2); Monocytes Percent Auto 12.4 % (2-11); Neutrophils Absolute Auto 10.17 x10*3/uL (2.0-8.3); Platelet Count 218 X10*3/uL (160-400); Red Blood Count 4.45 X10*6/uL (4.20-5.50); Red Cell Distribution Width 12.2 % (11.0-16.0); SCAN SMEAR FLAG 1; White Blood Count 12.6 X10*3/uL (4.8-10.8)
[2020-12-16 09:46] LABS: SLIDE REVIEW VERIFIED
[2020-12-16 09:55] LABS: Creatinine Urine 111.72 mg/dL; Sodium Urine Random < 20.0 mmol/L
[2020-12-16 10:34] LABS: Osmolality, Serum 275 mosm/kg (281-305)
[2020-12-16 10:35] LABS: Osmolality Urine 465 mosm/kg (373-1093)
[2020-12-16 11:05] LABS: Anion Gap 17 (12-20); Blood Urea Nitrogen 26 mg/dL (9-16); Calcium 8.8 mg/dL (8.4-10.2); Carbon Dioxide 24 mmol/L (22-29); Chloride 96 mmol/L (96-108); Creatinine Clr Calc Pharmacy 59.2; Estimated Glomerular Filt Rate > 60; Glucose Random 94 mg/dL (60-115); Potassium 3.6 mmol/L (3.3-5.1); Sodium 133 mmol/L (135-145)
--- NOTE | 2020-12-16 11:44 | MHC.CM.PN ---
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
--- NOTE | 2020-12-16 13:51 | P.EN_ITS ---
Event Note Date of Service: 12/16/20 Event Note: This consult was obtained because of of possibility of atrial fibr illation. Reviewed the admission EKG as well as repeat EKG this morning and patient is in sinus rhythm. Monitor does not show any evidence of atrial fibrillation. Discussed with Dr. velasquez, tacho says there is no need for cardiology consultation and will discontinue the cardiology consultation.
--- NOTE | 2020-12-16 15:49 | P.CONNP_ITS ---
History of Present Illness Reason for Consult Consult date: 12/16/20 Reason for consult: Hyponatremia Chief Complaint Chief complaint: Hematemesis History of Present Illness Narrative: Lori is a pleasant 85-year-old female with no significant past medical history presents to the hospital with complaints of intractable vomiting.? Patient reports that her symptoms started few days ago and prior to presentation she had developed coffee-ground emesis.? She had been having epigastric abdominal pain starting a few days ago.? She has been taking ibuprofen twice a day for the past few years for history of arthritis.? She denies having any diarrhea, no melena, no bright red blood per rectum, no headache, no change in vision, no dizziness, no shortness of breath, no chest pain, no urinary symptoms and no lower extremity edema. On arrival to the ED patient hemodynamically stable with no significant abnormal vitals. She was found to have sodium of 123. She was admitted for further management. Nephrology has been consulted to assist in her clinical care during her current hospital stay. Review of Systems Review of Systems Yes all other systems are reviewed and are negative [facility] Family History Family history: reviewed and not pertinent Surgical History Surgical History (Updated 12/16/20 @ 05:57 by Jessica Wahl MD) No pertinent past surgical history Social History Social History Household Members: Other Housing: Other Housing Other:: [place] [employer] Do you presently have visiting nurse or other home services: No Patient Tobacco Use Status: Never used Tobacco Advance Directives Date on File: 12/16/20 service: No Current occupational status: other Meds Allergies Allergy/AdvReac Type Severity Reaction Status Date / Time No Known Allergies Allergy Unverified 10/30/19 16:28 Shellfish Allergy Unknown Uncoded 06/15/15 00:00 Active Medications: Current Medications Acetaminophen (Acetaminophen 325 Mg Tablet) 650 mg PO Q6H PRN PRN Reason: Pain, Mild (Pain Scale 1-3) Last Admin: 12/16/20 04:49 Dose: 650 mg Documented by: Docusate Sodium (Docusate Sodium 100 Mg Capsule) 100 mg PO DAILY PRN PRN Reason: Constipation Sodium Chloride (Ns) 1,000 mls @ 80 mls/hr IVCONT .[id number] [facility] Last Admin: 12/16/20 07:42 Dose: 80 mls/hr Documented by: Ondansetron HCl (Ondansetron Hcl 4 Mg/2 Ml Vial) 4 mg IVPUSH Q8H PRN PRN Reason: Nausea and Vomiting Pantoprazole Sodium (Pantoprazole Sodium 40 Mg/10 Ml Vial) 40 mg IVPUSH BID@0630,1630 [facility] Last Admin: 12/16/20 05:51 Dose: 40 mg Documented by: Pharmacy Consult (Consult Rx Perform Med Rec) 1 each MISCELLANE ONCE PRN PRN Reason: Consult order Sodium Chloride (0.9 % Sodium Chloride Flush 3 Ml Syringe) 3 ml IVFLUSH QSHIFT [facility] Last Admin: 12/16/20 07:42 Dose: 3 ml Documented by: Sucralfate (Sucralfate 1 Gm Tablet) 1 gm PO BIDAC [facility] Last Admin: 12/16/20 07:42 Dose: 1 gm Documented by: Home Medications Medication Instructions Recorded Confirmed Last Taken Type budesonide-formoterol HFA 80 2 puff INHALATION BID 12/15/20 12/15/20 Unknown History mcg-4.5 mcg/actuation aerosol inhaler (Symbicort) Physical Exam Vital Signs: Last Vital Signs Temp 96.8 F 12/16/20 15:44 Pulse 68 12/16/20 15:44 Resp 18 12/16/20 15:44 BP 142/71 H 12/16/20 15:44 Pulse Ox 99 12/16/20 15:44 Body Mass Index 26.8 Const General: no acute distress and alert Orientation/consciousness: patient oriented x3 HENMT Head: Yes normocephalic and Yes atraumatic Eyes EOM: EOMs intact bilaterally Neck Neck: Yes supple Resp Auscultation: diminished lung sounds Cardio Rate: regular rate Rhythm: regular rhythm GI Palpation (GI): Soft to palpation Neuro General: patient oriented x3 and moves all extremities Results Lab Results Result Diagrams: 12/16/20 08:59 12/16/20 08:59 Lab results: Chemistry 12/15/20 12/16/20 07:39 08:59 Sodium 123 L 133 L Potassium 3.6 3.6 Carbon Dioxide 26 24 BUN 23 H 26 H Creatinine 0.75 0.72 Calcium 8.9 8.8 Hematology 12/15/20 12/16/20 12/16/20 07:39 07:41 08:59 WBC 15.1 H Cancelled 12.6 H Hgb 13.7 Cancelled 13.4 Plt Count 233 Cancelled 218 Urinalysis 12/15/20 09:25 Urine Color YELLOW Urine Appearance HAZY Urine pH 6.5 Ur Specific [place] 1.010 Urine Protein TRACE Urine Glucose (UA) NEG Urine Ketones 15 Urine Blood NEG Urine Nitrite NEG Ur Leukocyte Esterase NEG Urine Studies 12/16/20 12/16/20 09:05 09:05 Urine Osmolality 465 Urine Creatinine 111.72 Assessment and Plan (1) Acute hyponatremia: Status: Acute Hypovolemic hyponatremia Urine sodium less than 20 May have had mild ADH excess from nausea Renal functions normal Getting Normal saline Na correction appropriate Continue rest of current supportive care Labs AM. Shall follow up Procedures Date of Service Date of Service: 12/16/20
--- NOTE | 2020-12-16 15:56 | P.PNIM_ITS ---
Subjective Subjective Date of Service: 12/16/20 Interval History: Will quiet night overall; 1 episode of vomiting this a.m. Review of Systems Denies chest pain Denies shortness of breath Admits to vomiting and nausea Physical Exam Vital Signs: Vital Signs: Last Vital Signs Temp 96.8 F 12/16/20 15:44 Pulse 68 12/16/20 15:44 Resp 18 12/16/20 15:44 BP 142/71 H 12/16/20 15:44 Pulse Ox 99 12/16/20 15:44 Body Mass Index 26.8 Const: Other: No acute distress HENMT: Other: Membranes moist oropharynx clear Resp: Other: Clear to auscultation bilaterally no rales rhonchi or wheezes Cardio: Other: No S4; positive S1-S2; no S3 murmurs or gallops GI: Other: Soft nontender nondistended with normoactive bowel sounds Neuro: Other: Cranial nerves 2-12 grossly intact as tested. Motor is 5/5 all extremities. Sensation is intact. Cognition for apparent Extrem: Other: No edema bilaterally Objective Data Active Medications Acetaminophen (Acetaminophen 325 Mg Tablet) 650 mg PO Q6H PRN PRN Reason: Pain, Mild (Pain Scale 1-3) Last Admin: 12/16/20 04:49 Dose: 650 mg Documented by: TORY Docusate Sodium (Docusate Sodium 100 Mg Capsule) 100 mg PO DAILY PRN PRN Reason: Constipation Sodium Chloride (Ns) 1,000 mls @ 80 mls/hr IVCONT .[id number] [facility] Last Admin: 12/16/20 07:42 Dose: 80 mls/hr Documented by: CRISS Ondansetron HCl (Ondansetron Hcl 4 Mg/2 Ml Vial) 4 mg IVPUSH Q8H PRN PRN Reason: Nausea and Vomiting Pantoprazole Sodium (Pantoprazole Sodium 40 Mg/10 Ml Vial) 40 mg IVPUSH BID@0630,1630 [facility] Last Admin: 12/16/20 05:51 Dose: 40 mg Documented by: TORY Pharmacy Consult (Consult Rx Perform Med Rec) 1 each MISCELLANE ONCE PRN PRN Reason: Consult order Sodium Chloride (0.9 % Sodium Chloride Flush 3 Ml Syringe) 3 ml IVFLUSH QSHIFT [facility] Last Admin: 12/16/20 07:42 Dose: 3 ml Documented by: CRISS Sucralfate (Sucralfate 1 Gm Tablet) 1 gm PO BIDAC [facility] Last Admin: 12/16/20 07:42 Dose: 1 gm Documented by: CRISS Labs CBC & Chem 7: 12/16/20 08:59 12/16/20 08:59 Labs: Laboratory Results - last 24 hr 12/16/20 12/16/20 12/16/20 07:41 07:41 08:59 MCV Cancelled MCH Cancelled MCHC Cancelled RDW Cancelled Plt Count Cancelled MPV Cancelled Immature Gran % (Auto) Cancelled Neut % (Auto) Cancelled Lymph % (Auto) Cancelled [place] % (Auto) Cancelled Eos % (Auto) Cancelled Baso % (Auto) Cancelled Lymph # (Auto) Cancelled [place] # (Auto) Cancelled Eos # (Auto) Cancelled Baso # (Auto) Cancelled Abs Immat Gran (auto) Cancelled Absolute Neuts (auto) Cancelled Absolute Nucleated RBC Cancelled Nucleated RBC % (auto) Cancelled Smear Tech's Comments Anion Gap 17 Estim Creat Clear Calc 59.2 Estimated GFR > 60 Random Glucose 94 Osmolality 275 L Calcium 8.8 Urine Osmolality Ur Random Sodium Urine Creatinine 12/16/20 12/16/20 12/16/20 08:59 09:05 09:05 MCV 88.8 MCH 30.1 MCHC 33.9 RDW 12.2 Plt Count 218 MPV 10.1 Immature Gran % (Auto) 0.2 Neut % (Auto) 81.0 H Lymph % (Auto) 6.1 L [place] % (Auto) 12.4 H Eos % (Auto) 0.1 Baso % (Auto) 0.2 Lymph # (Auto) 0.8 L [place] # (Auto) 1.6 H Eos # (Auto) 0.0 Baso # (Auto) 0.0 Abs Immat Gran (auto) 0.03 Absolute Neuts (auto) 10.17 H Absolute Nucleated RBC 0.000 Nucleated RBC % (auto) 0.0 Smear Tech's Comments VERIFIED Anion Gap Estim Creat Clear Calc Estimated GFR Random Glucose Osmolality Calcium Urine Osmolality 465 Ur Random Sodium < 20.0 Urine Creatinine 111.72 Assessment and Plan (1) Hematemesis: Status: Acute (2) Acute hyponatremia: Status: Acute Assessment and Plan: A 85-year-old female who denies any past medical history presents to the hospital with coffee-ground emesis of 3 days duration in the backdrop of chronic NSAID use 1. Coffee-ground emesis No further coffee-ground emesis since admission Continue IV PPI and oral sucralfate Planned EGD in a.m.; NPO after midnight 2.Hyponatremia Discussed with Renal; likely due to hyper aldosterone state secondary to vomiting IV fluids normal saline solution at 100 an hour; fluid restriction of 1500 cc per 24 hours Follow routine labs 3. Question AFib on admission however review of EKG demonstrates normal sinus rhythm. DC telemetry DVT prophylaxis: SCDs Quality Stroke Does the patient have a stroke diagnosis?: No VTE Prior VTE?: No VTE Risk Level:: Medical - moderate - high VTE Device Contraindication: N/A - Device Ordered VTE Drug Contraindication: Treatment Not Indicated
[2020-12-16] MEDS: 0.9 % Sodium Chloride 1,000 ML 100 ML IVCONT (16:54)
[2020-12-17] VITALS (9 sets, daily range): BP systolic 102–174; BP diastolic 32–61; PULSE 74–108; RESP 15–20; TEMP 35.7–36.9; O2SAT 90–99
[2020-12-17] MEDS: 0.9 % Sodium Chloride 1,000 ML 100 ML IVCONT (02:51)
[2020-12-17] MEDS: Pantoprazole Sodium 40 MG/10 ML VIAL IVPUSH ×2 (05:52→15:51)
--- NOTE | 2020-12-17 05:54 | PC.NURSE ---
VSS. Pt not on tele. NO c/o pain/discomfort. Pt vomited brown, bile, 100cc last night. Didn't tell staff-RN found vomit in basin when checking on patient. No c/o nausea. Plan: Pt NPO for EGD today. Will continue to monitor.
[2020-12-17 06:46] LABS: Mean Corpuscular HGB Conc 33.3 g/dl (31.0-35.0); Mean Corpuscular Volume 89.9 fL (80.0-98.0); Platelet Count 236 X10*3/uL (160-400); Red Blood Count 4.34 X10*6/uL (4.20-5.50); Red Cell Distribution Width 12.1 % (11.0-16.0); White Blood Count 7.3 X10*3/uL (4.8-10.8)
[2020-12-17 06:51] LABS: Alanine Aminotransferase 23 U/L (0-31); Albumin Level 3.6 g/dL (3.5-5.0); Alkaline Phosphatase 53 U/L (39-117); Anion Gap 13 (12-20); Aspartate Amino Transferase 20 U/L (5-31); Blood Urea Nitrogen 27 mg/dL (9-16); Calcium 8.4 mg/dL (8.4-10.2); Carbon Dioxide 25 mmol/L (22-29); Chloride 99 mmol/L (96-108); Creatinine Clr Calc Pharmacy 57.6; Estimated Glomerular Filt Rate > 60; Glucose Fasting 111 mg/dL (60-99); Potassium 3.3 mmol/L (3.3-5.1); Sodium 134 mmol/L (135-145); Total Protein 5.6 g/dL (6.5-8.0)
[2020-12-17] MEDS: ondansetron HCL 4 MG/2 ML VIAL IVPUSH (09:20)
--- NOTE | 2020-12-17 11:33 | MHC.CM.PN ---
Per ROUNDS discussion, Patient is not yet medically cleared for dc (EGD today, Nausea). Home is the goal for dc and CM will follow for possible need to adjust the dc plan.
--- NOTE | 2020-12-17 11:56 | PM.PNNEP ---
Subjective Subjective Date of Service: 12/17/20 Interval history: Events noted. All recent data reviewed. Physical Exam Vital Signs: Vital Signs: Last Vital Signs Temp 97.5 F 12/17/20 11:36 Pulse 80 12/17/20 11:36 Resp 18 12/17/20 11:36 BP 174/54 H 12/17/20 11:36 Pulse Ox 95 12/17/20 11:36 Body Mass Index 26.8 Const: General: no acute distress HENMT: Head: Yes normocephalic Eyes: EOM: EOMs intact bilaterally Neck: Neck: Yes supple Resp: Auscultation: diminished lung sounds Cardio: Jugular venous distension: no JVD GI: Palpation (GI): Soft to palpation Neuro: General: moves all extremities Extrem: General: Yes no pedal edema Objective Data Labs CBC & Chem 7: 12/17/20 06:07 12/17/20 06:07 Labs: Laboratory Results - last 24 hr 12/17/20 12/17/20 06:07 06:07 WBC 7.3 RBC 4.34 Hgb 13.0 Hct 39.0 MCV 89.9 MCH 30.0 MCHC 33.3 RDW 12.1 Plt Count 236 MPV 10.0 Absolute Nucleated RBC 0.000 Nucleated RBC % (auto) 0.0 Sodium 134 L Potassium 3.3 Chloride 99 Carbon Dioxide 25 Anion Gap 13 BUN 27 H Creatinine 0.74 Estim Creat Clear Calc 57.6 Estimated GFR > 60 Fasting Glucose 111 H Calcium 8.4 Total Bilirubin 1.0 AST 20 ALT 23 Alkaline Phosphatase 53 Total Protein 5.6 L Albumin 3.6 Procedures Date of Service Date of Service: 12/17/20 Assessment & Plan Assessment and plan (1) Acute hyponatremia: Status: Acute Assessment and Plan: Hypovolemic hyponatremia Urine sodium less than 20 May have had mild ADH excess from nausea Renal functions normal Getting Normal saline Na correction appropriate( currently 134) Continue rest of current supportive care Time Spent With Patient Time: Total time spent is greater than 50% in coordination of care (as documented) at patient's floor/unit and/or counseling patient: Progress Note: Quality Stroke Does the patient have a stroke diagnosis?: No
--- NOTE | 2020-12-17 12:42 | MHC.SHP ---
Pre-Procedural Eval Section A Date of Service: 12/17/20 The patient is an INPATIENT: Yes The History & Physical has been completed within 30 days and I have reviewed it.: Yes Section B Chief Complaint: Hematemesis Allergies: Allergies Allergy/AdvReac Type Severity Reaction Status Date / Time No Known Allergies Allergy Unverified 10/30/19 16:28 Shellfish Allergy Unknown Uncoded 06/15/15 00:00 Plan Diagnosis/Plan: Unchanged I have reviewed the history and physical and performed a pertinent physical examination on my patient. No changes have occurred unless specified.
--- NOTE | 2020-12-17 12:53 | P.CONAN_ITS ---
HPI - Anesthesia Eval Consult details Narrative: 85 yo female patient for EGD PMFSH Active Problems Active Problems: All Active Problems (Updated 12/16/20 @ 16:08 by Anup Jewell DO) Hematemesis (Acute) Acute hyponatremia (Acute) On ibuprofen for pain secondary to femoral fracture Dehydration Past Medical History Medical History Asthma Bilateral inguinal hernia Femur fracture, left Family History Family history of problems with anesthesia: No Surgical History Surgical History Hx of appendectomy Hx of tonsillectomy History of Problems with Anesthesia: No Social History Social History Household Members: Other Housing: Other Housing Other:: [place] Do you presently have visiting nurse or other home services: No Patient Tobacco Use Status: Never used Tobacco Second Hand Smoke Exposure: No Advance Directives Date on File: 12/16/20 service: No Current occupational status: other Meds Allergies Allergy/AdvReac Type Severity Reaction Status Date / Time Shellfish Allergy Unknown Unknown Uncoded 12/17/20 12:59 Active Medications: Current Medications Acetaminophen (Acetaminophen 325 Mg Tablet) 650 mg PO Q6H PRN PRN Reason: Pain, Mild (Pain Scale 1-3) Last Admin: 12/16/20 04:49 Dose: 650 mg Documented by: Docusate Sodium (Docusate Sodium 100 Mg Capsule) 100 mg PO DAILY PRN PRN Reason: Constipation Sodium Chloride (Ns) 1,000 mls @ 100 mls/hr IVCONT .Q10H [facility] Last Infusion: 12/17/20 11:40 Dose: 0 mls/hr Documented by: Ondansetron HCl (Ondansetron Hcl 4 Mg/2 Ml Vial) 4 mg IVPUSH Q8H PRN PRN Reason: Nausea and Vomiting Last Admin: 12/17/20 09:20 Dose: 4 mg Documented by: Pantoprazole Sodium (Pantoprazole Sodium 40 Mg/10 Ml Vial) 40 mg IVPUSH BID@0630,1630 [facility] Last Admin: 12/17/20 05:52 Dose: 40 mg Documented by: Pharmacy Consult (Consult Rx Perform Med Rec) 1 each MISCELLANE ONCE PRN PRN Reason: Consult order Sodium Chloride (0.9 % Sodium Chloride Flush 3 Ml Syringe) 3 ml IVFLUSH QSHIFT [facility] Last Admin: 12/17/20 08:21 Dose: Not Given Documented by: Sucralfate (Sucralfate 1 Gm Tablet) 1 gm PO BIDAC [facility] Last Admin: 12/17/20 08:21 Dose: Not Given Documented by: Home Medications Medication Instructions Recorded Confirmed Last Taken Type budesonide-formoterol HFA 80 2 puff INHALATION BID 12/15/20 12/15/20 Unknown History mcg-4.5 mcg/actuation aerosol inhaler (Symbicort) Exam Exam Date and Time: December 17, 2020 1253 Height,Weight and Vital Signs: Height 5 ft 6 in Weight 75.4 kg Last Vital Signs Temp 97.5 F 12/17/20 11:36 Pulse 80 12/17/20 11:36 Resp 18 12/17/20 11:36 BP 174/54 H 12/17/20 11:36 Pulse Ox 95 12/17/20 11:36 Pertinent Lab Results Pertinent Lab Results: Laboratory Tests 12/15/20 12/15/20 12/15/20 07:34 07:39 07:39 WBC 15.1 H RBC 4.54 Hgb 13.7 Hct 40.1 MCV 88.3 MCH 30.2 MCHC 34.2 RDW 11.9 Plt Count 233 MPV 9.5 Immature Gran % (Auto) 0.5 H Neut % (Auto) 84.0 H Lymph % (Auto) 6.5 L [place] % (Auto) 8.7 Eos % (Auto) 0.1 Baso % (Auto) 0.2 Lymph # (Auto) 1.0 L [place] # (Auto) 1.3 H Eos # (Auto) 0.0 Baso # (Auto) 0.0 Abs Immat Gran (auto) 0.07 H Absolute Neuts (auto) 12.67 H Absolute Nucleated RBC 0.000 Nucleated RBC % (auto) 0.0 Smear Tech's Comments PT INR APTT Sodium 123 L Potassium 3.6 Chloride 86 L Carbon Dioxide 26 Anion Gap 15 BUN 23 H Creatinine 0.75 Estim Creat Clear Calc 56.9 Estimated GFR > 60 Random Glucose 130 H Fasting Glucose Osmolality Calcium 8.9 Total Bilirubin 1.4 H Direct Bilirubin 0.6 H AST 31 D ALT 24 Alkaline Phosphatase 60 Troponin I High Sens Total Protein 6.3 L Albumin 4.1 Lipase 28 Urine Color Urine Appearance Urine pH Ur Specific [place] Urine Protein Urine Glucose (UA) Urine Ketones Urine Blood Urine Nitrite Ur Leukocyte Esterase Urine Osmolality Ur Random Sodium Urine Creatinine COVID-19 ([facility]) Negative COVID-19 Clin Com See Note 12/15/20 12/15/20 12/15/20 07:39 07:39 09:25 WBC RBC Hgb Hct MCV MCH MCHC RDW Plt Count MPV Immature Gran % (Auto) Neut % (Auto) Lymph % (Auto) [place] % (Auto) Eos % (Auto) Baso % (Auto) Lymph # (Auto) [place] # (Auto) Eos # (Auto) Baso # (Auto) Abs Immat Gran (auto) Absolute Neuts (auto) Absolute Nucleated RBC Nucleated RBC % (auto) Smear Tech's Comments PT 11.4 INR 1.0 APTT 27.5 Sodium Potassium Chloride Carbon Dioxide Anion Gap BUN Creatinine Estim Creat Clear Calc Estimated GFR Random Glucose Fasting Glucose Osmolality Calcium Total Bilirubin Direct Bilirubin AST ALT Alkaline Phosphatase Troponin I High Sens 6.4 Total Protein Albumin Lipase Urine Color YELLOW Urine Appearance HAZY Urine pH 6.5 Ur Specific [place] 1.010 Urine Protein TRACE Urine Glucose (UA) NEG Urine Ketones 15 Urine Blood NEG Urine Nitrite NEG Ur Leukocyte Esterase NEG Urine Osmolality Ur Random Sodium Urine Creatinine COVID-19 ([facility]) COVID-19 Clin Com 12/16/20 12/16/20 12/16/20 07:41 07:41 08:59 WBC Cancelled RBC Cancelled Hgb Cancelled Hct Cancelled MCV Cancelled MCH Cancelled MCHC Cancelled RDW Cancelled Plt Count Cancelled MPV Cancelled Immature Gran % (Auto) Cancelled Neut % (Auto) Cancelled Lymph % (Auto) Cancelled [place] % (Auto) Cancelled Eos % (Auto) Cancelled Baso % (Auto) Cancelled Lymph # (Auto) Cancelled [place] # (Auto) Cancelled Eos # (Auto) Cancelled Baso # (Auto) Cancelled Abs Immat Gran (auto) Cancelled Absolute Neuts (auto) Cancelled Absolute Nucleated RBC Cancelled Nucleated RBC % (auto) Cancelled Smear Tech's Comments PT INR APTT Sodium 133 L Potassium 3.6 Chloride 96 Carbon Dioxide 24 Anion Gap 17 BUN 26 H Creatinine 0.72 Estim Creat Clear Calc 59.2 Estimated GFR > 60 Random Glucose 94 Fasting Glucose Osmolality 275 L Calcium 8.8 Total Bilirubin Direct Bilirubin AST ALT Alkaline Phosphatase Troponin I High Sens Total Protein Albumin Lipase Urine Color Urine Appearance Urine pH Ur Specific [place] Urine Protein Urine Glucose (UA) Urine Ketones Urine Blood Urine Nitrite Ur Leukocyte Esterase Urine Osmolality Ur Random Sodium Urine Creatinine COVID-19 ([facility]) COVID-19 Clin Com 12/16/20 12/16/20 12/16/20 08:59 09:05 09:05 WBC 12.6 H RBC 4.45 Hgb 13.4 Hct 39.5 MCV 88.8 MCH 30.1 MCHC 33.9 RDW 12.2 Plt Count 218 MPV 10.1 Immature Gran % (Auto) 0.2 Neut % (Auto) 81.0 H Lymph % (Auto) 6.1 L [place] % (Auto) 12.4 H Eos % (Auto) 0.1 Baso % (Auto) 0.2 Lymph # (Auto) 0.8 L [place] # (Auto) 1.6 H Eos # (Auto) 0.0 Baso # (Auto) 0.0 Abs Immat Gran (auto) 0.03 Absolute Neuts (auto) 10.17 H Absolute Nucleated RBC 0.000 Nucleated RBC % (auto) 0.0 Smear Tech's Comments VERIFIED PT INR APTT Sodium Potassium Chloride Carbon Dioxide Anion Gap BUN Creatinine Estim Creat Clear Calc Estimated GFR Random Glucose Fasting Glucose Osmolality Calcium Total Bilirubin Direct Bilirubin AST ALT Alkaline Phosphatase Troponin I High Sens Total Protein Albumin Lipase Urine Color Urine Appearance Urine pH Ur Specific [place] Urine Protein Urine Glucose (UA) Urine Ketones Urine Blood Urine Nitrite Ur Leukocyte Esterase Urine Osmolality 465 Ur Random Sodium < 20.0 Urine Creatinine 111.72 COVID-19 ([facility]) COVID-19 Clin Com 12/17/20 12/17/20 06:07 06:07 WBC 7.3 RBC 4.34 Hgb 13.0 Hct 39.0 MCV 89.9 MCH 30.0 MCHC 33.3 RDW 12.1 Plt Count 236 MPV 10.0 Immature Gran % (Auto) Neut % (Auto) Lymph % (Auto) [place] % (Auto) Eos % (Auto) Baso % (Auto) Lymph # (Auto) [place] # (Auto) Eos # (Auto) Baso # (Auto) Abs Immat Gran (auto) Absolute Neuts (auto) Absolute Nucleated RBC 0.000 Nucleated RBC % (auto) 0.0 Smear Tech's Comments PT INR APTT Sodium 134 L Potassium 3.3 Chloride 99 Carbon Dioxide 25 Anion Gap 13 BUN 27 H Creatinine 0.74 Estim Creat Clear Calc 57.6 Estimated GFR > 60 Random Glucose Fasting Glucose 111 H Osmolality Calcium 8.4 Total Bilirubin 1.0 Direct Bilirubin AST 20 ALT 23 Alkaline Phosphatase 53 Troponin I High Sens Total Protein 5.6 L Albumin 3.6 Lipase Urine Color Urine Appearance Urine pH Ur Specific [place] Urine Protein Urine Glucose (UA) Urine Ketones Urine Blood Urine Nitrite Ur Leukocyte Esterase Urine Osmolality Ur Random Sodium Urine Creatinine COVID-19 ([facility]) COVID-19 Clin Com Airway Mallampati Class: II TM Dist: >3cm Neck ROM: Full Loose/Missing/Broken Teeth: No Heart: RRR Lungs: CTAB Assessment and Plan Assessment Anesthesia Assessment: Anesthesia Plan Discussed and Chart Reviewed Final Anesthetic Review Family History of Problems with Anesthesia: No History of Problems with Anesthesia: No NPO: Yes ASA Class: III Final Preanesthetic Review: No Changes in Pt Med Stat, Meds/Allgs Chart Reviewed, Consent Obtained/Reviewed and Anes Risks/Benef Reviewed Patient Risk: Intermediate Procedure Risk: Low Assessment/Block/Sedation in SS: Assess/Block/Sedation-SS Anesthetic Plan Anesthetic Plan: MAC: Disposition: Standard PACU and Inp. Admit - Standard Bed
--- NOTE | 2020-12-17 13:25 | P.BOP_ITS ---
Brief Operative Note Date of Service: 12/17/20 Pre-op diagnosis: nausea, vomiting Post-op diagnosis: same Procedure: see op note Surgeon: Angie Tipton MD Anesthesia: MAC Was an House Piping Inspector used for this Procedure?: No Estimated blood loss (mL): 0 Condition: stable Disposition: PACU
--- NOTE | 2020-12-17 13:25 | W.PM.OPN ---
Operative Note Operative Note Date of Service: 12/17/20 Narrative: Procedure Description: EGD FLEXIBLE TRANSORAL UPPER GASTROINTESTINAL ENDOSCOPY UPPER ENDOSCOPY Consent: Indications for the procedure and potential complications of bleeding, perforation, reaction to medications and missed diagnosis were discussed with the patient and informed consent was obtained. Instrument: Olympus GIF H 190 J mid size upper endoscope Monitoring: Vital signs and clinical assessment, continuous EKG monitoring, Pulse oximetry, Carbon Dioxide monitoring and blood pressure monitoring were done throughout the procedure. Procedure: The patient was placed in the left lateral decubitis position and pre-procedure medications were administered and a bite block was placed. The endoscope was inserted into the mouth and advanced under direct vision to the third part of duodenum. A careful inspection was made as the upper endoscope was withdrawn including a retroflexed examination of the proximal stomach; Findings and interventions are described below. Findings: Larynx:normal Esophagus: GE junction at 37 cm, diaphragm hiatus at 40 cm, consistent with 3 cm sliding hiatal hernia, 10 cm of LA grade D esophagitis (severe) Stomach: Patchy gastric erythema. Biopsies were obtained. Grade 2 flap valve on retroflexed examination of the cardia. There was 1.5 L of fluid that was suctioned out. slightly deformed antrum and pylorus Duodenum: severe scattered ulcerative duodenitis with edema and swelling Intervention: Biopsies as noted above, suction of large retained amount of fluid Impression/Findings: ulcerative duodenitis gastritis hiatal hernia severe esophagitis PLAN: reflux precautions clear diet and advance as tolerated, can use low dose reglan e.g 5 mg TID with meals pantoprazole 40 mg bid, with carafate QID repeat EGD in 3-4 months if no improvement then CT scan with PO contrast to make sure no downstream lesion or obstruction in small bowel Can aslo consider gastric emptying study depending on above
[2020-12-17] MEDS: Lactated Ringers 1,000 ML 100 ML IVCONT (14:35)
--- NOTE | 2020-12-17 14:35 | P.PNIM_ITS ---
Subjective Subjective Date of Service: 12/17/20 Interval History: Remained nauseous overnight. To OR today for EGD results reviewed. Somnolent on return Review of Systems Denies chest pain Denies shortness of breath Admits nausea vomiting denies diarrhea Physical Exam Vital Signs: Vital Signs: Last Vital Signs Temp 98.5 F 12/17/20 14:25 Pulse 74 12/17/20 14:25 Resp 15 12/17/20 14:25 BP 140/59 H 12/17/20 14:25 Pulse Ox 93 12/17/20 14:25 Body Mass Index 26.8 Const: Other: No acute distress HENMT: Other: Membranes moist oropharynx clear Resp: Other: Clear to auscultation bilaterally no rales rhonchi or wheezes Cardio: Other: No S4; positive S1-S2; no S3 murmurs or gallops GI: Other: Soft nontender nondistended with normoactive bowel sounds Neuro: Other: Cranial nerves 2-12 grossly intact as tested. Motor is 5/5 all extremities. Sensation is intact. Cognition for apparent Extrem: Other: No edema bilaterally Objective Data Active Medications Acetaminophen (Acetaminophen 325 Mg Tablet) 650 mg PO Q6H PRN PRN Reason: Pain, Mild (Pain Scale 1-3) Last Admin: 12/16/20 04:49 Dose: 650 mg Documented by: TORY Docusate Sodium (Docusate Sodium 100 Mg Capsule) 100 mg PO DAILY PRN PRN Reason: Constipation Sodium Chloride (Ns) 1,000 mls @ 100 mls/hr IVCONT .Q10H [facility] Last Infusion: 12/17/20 11:40 Dose: 0 mls/hr Documented by: SPENCER Lactated Ringer's (Lr) 1,000 mls @ 100 mls/hr IVCONT .Q10H [facility] Ondansetron HCl (Ondansetron Hcl 4 Mg/2 Ml Vial) 4 mg IVPUSH Q8H PRN PRN Reason: Nausea and Vomiting Last Admin: 12/17/20 09:20 Dose: 4 mg Documented by: SPENCER Ondansetron HCl (Ondansetron Hcl 4 Mg/2 Ml Vial) 4 mg IVPUSH ONCE PRN PRN Reason: Nausea and Vomiting Pantoprazole Sodium (Pantoprazole Sodium 40 Mg/10 Ml Vial) 40 mg IVPUSH BID@0630,1630 [facility] Last Admin: 12/17/20 05:52 Dose: 40 mg Documented by: KATARINA Pharmacy Consult (Consult Rx Perform Med Rec) 1 each MISCELLANE ONCE PRN PRN Reason: Consult order Sodium Chloride (0.9 % Sodium Chloride Flush 3 Ml Syringe) 3 ml IVFLUSH QSHIFT [facility] Last Admin: 12/17/20 08:21 Dose: Not Given Documented by: SPENCER Non-Admin Reason: IV Running Sucralfate (Sucralfate 1 Gm Tablet) 1 gm PO BIDAC [facility] Last Admin: 12/17/20 08:21 Dose: Not Given Documented by: SPENCER Non-Admin Reason: NPO Labs CBC & Chem 7: 12/17/20 06:07 12/17/20 06:07 Labs: Laboratory Results - last 24 hr 12/17/20 12/17/20 06:07 06:07 MCV 89.9 MCH 30.0 MCHC 33.3 RDW 12.1 Plt Count 236 MPV 10.0 Absolute Nucleated RBC 0.000 Nucleated RBC % (auto) 0.0 Anion Gap 13 Estim Creat Clear Calc 57.6 Estimated GFR > 60 Fasting Glucose 111 H Calcium 8.4 Total Bilirubin 1.0 AST 20 ALT 23 Alkaline Phosphatase 53 Total Protein 5.6 L Albumin 3.6 Assessment and Plan (1) Hematemesis: Status: Acute Assessment and Plan: A 85-year-old female who denies any past medical history presents to the hospital with coffee-ground emesis of 3 days duration in the backdrop of chronic NSAID use 1. Coffee-ground emesis No further coffee-ground emesis since admission Continue IV PPI and oral sucralfate Findings: Esophagus: GE junction at 37? cm, diaphragm hiatus at 40 cm, consistent with 3 cm sliding hiatal hernia, 10 cm of LA grade D esophagitis (severe) Stomach: Patchy gastric erythema. Biopsies were obtained. Grade 2 flap valve on retroflexed examination of the cardia. There was 1.5 L of fluid that was suctioned out.? slightly deformed antrum and pylorus Duodenum: severe scattered ulcerative duodenitis with edema and swelling As per recommendation will add Reglan t.i.d. a.c. and follow response. If no improvement will schedule gastric emptying study 2.Hyponatremia Normalized. Will continue gentle IV fluids until taking adequate p.o. Follow daily labs DVT prophylaxis: SCDs Quality Stroke Does the patient have a stroke diagnosis?: No VTE Prior VTE?: No VTE Risk Level:: Medical - moderate - high VTE Device Contraindication: N/A - Device Ordered VTE Drug Contraindication: Treatment Not Indicated
[2020-12-17] MEDS: Sucralfate 1 GM TABLET PO (15:51)
[2020-12-17] MEDS: 0.9 % Sodium Chloride Flush 3 ML SYRINGE IVFLUSH (15:51)
[2020-12-17] MEDS: Morphine Sulfate 4 MG/ML CARTRIDGE IVPUSH (22:43)
[2020-12-17] MEDS: Magnesium Hydrox/Alum Hydrox 30 ML ORAL.SUSP 15 ML PO (22:43)
--- NOTE | 2020-12-18 | ECG_ITS ---
Test Reason : shortness of breath Blood Pressure : / mmHG Vent. Rate : 097 BPM Atrial Rate : 097 BPM P-R Int : 174 ms QRS Dur : 100 ms QT Int : 358 ms P-R-T Axes : 100 027 130 degrees QTc Int : 454 ms Normal sinus rhythm ST & T wave abnormality, consider inferolateral ischemia Abnormal ECG ST more depressed Lateral leads Premature atrial complexes are no longer Present QRS axis changed in V1 Referred By: Anup Jewell Electronically Signed By:TYRONE SU MD
[2020-12-18] MEDS: Lactated Ringers 1,000 ML 100 ML IVCONT ×3 (00:58→22:56)
[2020-12-18 03:25] VITALS: BP 133/54; PULSE 96; RESP 18; TEMP 36.8; O2SAT 98
[2020-12-18] MEDS: Pantoprazole Sodium 40 MG/10 ML VIAL IVPUSH ×2 (06:15→16:27)
[2020-12-18 07:44] LABS: Hematocrit 36.7 % (37.0-47.0); Hemoglobin 12.2 g/dl (12.0-16.0); Mean Corpuscular HGB Conc 33.2 g/dl (31.0-35.0); Mean Corpuscular Hemoglobin 30.1 pg (27.0-33.0); Mean Corpuscular Volume 90.6 fL (80.0-98.0); Mean Platelet Volume 10.4 fL (9.4-12.3); Platelet Count 233 X10*3/uL (160-400); Red Blood Count 4.05 X10*6/uL (4.20-5.50); Red Cell Distribution Width 12.4 % (11.0-16.0); White Blood Count 7.4 X10*3/uL (4.8-10.8)
[2020-12-18 08:00] VITALS: BP 141/60; PULSE 84; RESP 18; TEMP 36.8; O2SAT 98
[2020-12-18 08:09] LABS: Alanine Aminotransferase 32 U/L (0-31); Albumin Level 3.3 g/dL (3.5-5.0); Alkaline Phosphatase 51 U/L (39-117); Anion Gap 14 (12-20); Aspartate Amino Transferase 22 U/L (5-31); Bilirubin Total 0.9 mg/dL (0.0-1.0); Blood Urea Nitrogen 24 mg/dL (9-16); Calcium 8.3 mg/dL (8.4-10.2); Carbon Dioxide 23 mmol/L (22-29); Chloride 102 mmol/L (96-108); Creatinine Clr Calc Pharmacy 62.7; Estimated Glomerular Filt Rate > 60; Glucose Fasting 79 mg/dL (60-99); Potassium 3.3 mmol/L (3.3-5.1); Sodium 136 mmol/L (135-145); Total Protein 5.2 g/dL (6.5-8.0)
[2020-12-18 09:47] LABS: Troponin-I High Sensitivity 8.6 ng/L (<3.5-17.0)
[2020-12-18 09:48] LABS: B Type Natriuretic Peptide 75 pg/mL (<100)
[2020-12-18] MEDS: 0.9 % Sodium Chloride Flush 3 ML SYRINGE IVFLUSH ×2 (10:28→16:27)
[2020-12-18] MEDS: Sucralfate 1 GM TABLET PO ×2 (10:28→16:27)
[2020-12-18 11:47] VITALS: BP 154/58; PULSE 86; TEMP 37; O2SAT 96
--- NOTE | 2020-12-18 12:19 | HO.POSTANES ---
Post Anesthesia Evaluation Post Anesthesia Evaluation Vital Signs: Vital Signs Temp Pulse Resp BP Pulse Ox 12/18/20 11:47 98.6 F 86 154/58 H 96 12/18/20 08:00 98.2 F 84 18 141/60 H 98 12/18/20 03:25 98.2 F 96 18 133/54 L 98 Anesthesia: Monitored Mental Status: Awake Pain Control: Satisfactory Nausea/Vomiting: None Hydration: Adequate Anesthesia-Related Issues: No Anes. Related Issues
--- NOTE | 2020-12-18 14:33 | HO.PM.IMPN ---
Subjective Subjective Date of Service: 12/18/20 Interval History: Complains of mild shortness of breath overnight; now with O2 requirement. Tolerating clears but with some discomfort Review of Systems Denies chest pain Admits to shortness of breath No further nausea vomiting diarrhea Physical Exam Vital Signs: Vital Signs: Last Vital Signs Temp 98.6 F 12/18/20 11:47 Pulse 86 12/18/20 11:47 Resp 18 12/18/20 08:00 BP 154/58 H 12/18/20 11:47 Pulse Ox 96 12/18/20 11:47 Body Mass Index 26.8 Const: Other: No acute distress HENMT: Other: Membranes moist oropharynx clear Resp: Other: Scant crackles bilaterally left greater than right. No rhonchi Cardio: Other: No S4; positive S1-S2; no S3 murmurs or gallops GI: Other: Soft nontender nondistended with normoactive bowel sounds Neuro: Other: Cranial nerves 2-12 grossly intact as tested. Motor is 5/5 all extremities. Sensation is intact. Cognition for apparent Extrem: Other: No edema bilaterally Objective Data Active Medications Acetaminophen (Acetaminophen 325 Mg Tablet) 650 mg PO Q6H PRN PRN Reason: Pain, Mild (Pain Scale 1-3) Last Admin: 12/16/20 04:49 Dose: 650 mg Documented by: TORY Docusate Sodium (Docusate Sodium 100 Mg Capsule) 100 mg PO DAILY PRN PRN Reason: Constipation Lactated Ringer's (Lr) 1,000 mls @ 100 mls/hr IVCONT .Q10H [facility] Last Admin: 12/18/20 10:28 Dose: 100 mls/hr Documented by: ROSE Ondansetron HCl (Ondansetron Hcl 4 Mg/2 Ml Vial) 4 mg IVPUSH Q8H PRN PRN Reason: Nausea and Vomiting Last Admin: 12/17/20 09:20 Dose: 4 mg Documented by: SPENCER Ondansetron HCl (Ondansetron Hcl 4 Mg/2 Ml Vial) 4 mg IVPUSH ONCE PRN PRN Reason: Nausea and Vomiting Pantoprazole Sodium (Pantoprazole Sodium 40 Mg/10 Ml Vial) 40 mg IVPUSH BID@0630,1630 [facility] Last Admin: 12/18/20 06:15 Dose: 40 mg Documented by: FLORES Pharmacy Consult (Consult Rx Perform Med Rec) 1 each MISCELLANE ONCE PRN PRN Reason: Consult order Sodium Chloride (0.9 % Sodium Chloride Flush 3 Ml Syringe) 3 ml IVFLUSH QSHIFT [facility] Last Admin: 12/18/20 10:28 Dose: 3 ml Documented by: ROSE Sucralfate (Sucralfate 1 Gm Tablet) 1 gm PO BIDAC [facility] Last Admin: 12/18/20 10:28 Dose: 1 gm Documented by: ROSE Labs CBC & Chem 7: 12/18/20 06:56 12/18/20 06:56 Labs: Laboratory Results - last 24 hr 12/18/20 12/18/20 12/18/20 06:56 06:56 09:09 MCV 90.6 MCH 30.1 MCHC 33.2 RDW 12.4 Plt Count 233 MPV 10.4 Absolute Nucleated RBC 0.000 Nucleated RBC % (auto) 0.0 Anion Gap 14 Estim Creat Clear Calc 62.7 Estimated GFR > 60 Fasting Glucose 79 Calcium 8.3 L Total Bilirubin 0.9 AST 22 ALT 32 H Alkaline Phosphatase 51 Troponin I High Sens B-Natriuretic Peptide 75 Total Protein 5.2 L Albumin 3.3 L 12/18/20 09:09 MCV MCH MCHC RDW Plt Count MPV Absolute Nucleated RBC Nucleated RBC % (auto) Anion Gap Estim Creat Clear Calc Estimated GFR Fasting Glucose Calcium Total Bilirubin AST ALT Alkaline Phosphatase Troponin I High Sens 8.6 B-Natriuretic Peptide Total Protein Albumin Assessment and Plan (1) Hematemesis: Status: Acute Assessment and Plan: A 85-year-old female who denies any past medical history presents to the hospital with coffee-ground emesis of 3 days duration in the backdrop of chronic NSAID use. 1. Coffee-ground emesis No further coffee-ground emesis since admission Continue IV PPI and oral sucralfate Findings: Esophagus: GE junction at 37? cm, diaphragm hiatus at 40 cm, consistent with 3 cm sliding hiatal hernia, 10 cm of LA grade D esophagitis (severe) Stomach: Patchy gastric erythema. Biopsies were obtained. Grade 2 flap valve on retroflexed examination of the cardia. There was 1.5 L of fluid that was suctioned out.? slightly deformed antrum and pylorus Duodenum: severe scattered ulcerative duodenitis with edema and swelling Still having issues with clear liquids; will schedule CT abdomen pelvis with oral contrast as per GI 2.Hyponatremia Normalized. Will continue gentle IV fluids until taking adequate p.o. Follow daily labs DVT prophylaxis: SCDs Quality Stroke Does the patient have a stroke diagnosis?: No VTE Prior VTE?: No VTE Risk Level:: Medical - moderate - high VTE Device Contraindication: N/A - Device Ordered VTE Drug Contraindication: Treatment Not Indicated
[2020-12-18 15:34] VITALS: BP 142/60; PULSE 85; RESP 22; TEMP 36.8; O2SAT 95
[2020-12-18 20:00] VITALS: BP 145/60; PULSE 86; RESP 18; TEMP 37.1; O2SAT 97
[2020-12-18] MEDS: Morphine Sulfate 4 MG/ML CARTRIDGE IVPUSH (22:56)
[2020-12-19] VITALS (7 sets, daily range): BP systolic 121–154; BP diastolic 49–75; PULSE 85–107; RESP 18–20; TEMP 36.4–37.2; O2SAT 92–98
[2020-12-19 06:54] LABS: MANUAL DIFF FLAG NO
[2020-12-19 06:55] LABS: Basophils Absolute Auto 0.1 X10*3/uL (0.0-0.2); Basophils Percent Auto 0.7 % (0-2); Eosinophils Absolute Auto 0.1 X10*3/uL (0.0-0.4); Eosinophils Percent Auto 1.7 % (0-4); Hematocrit 35.6 % (37.0-47.0); Hemoglobin 11.5 g/dl (12.0-16.0); Imm Gran Abs Auto 0.03 X10*3/uL (0.00-0.03); Imm Gran Pct Auto 0.4 % (0.0-0.4); Lymphocytes Percent Auto 13.8 % (20-40); Mean Corpuscular HGB Conc 32.3 g/dl (31.0-35.0); Mean Corpuscular Hemoglobin 29.8 pg (27.0-33.0); Mean Corpuscular Volume 92.2 fL (80.0-98.0); Mean Platelet Volume 9.8 fL (9.4-12.3); Monocytes Absolute Auto 1.1 X10*3/uL (0.1-1.2); Monocytes Percent Auto 15.4 % (2-11); Neutrophils Absolute Auto 4.7 x10*3/uL (2.0-8.3); Platelet Count 208 X10*3/uL (160-400); Red Blood Count 3.86 X10*6/uL (4.20-5.50); Red Cell Distribution Width 12.3 % (11.0-16.0)
[2020-12-19 07:10] LABS: Alanine Aminotransferase 24 U/L (0-31); Albumin Level 2.9 g/dL (3.5-5.0); Alkaline Phosphatase 45 U/L (39-117); Anion Gap 17 (12-20); Aspartate Amino Transferase 15 U/L (5-31); Bilirubin Total 0.7 mg/dL (0.0-1.0); Blood Urea Nitrogen 21 mg/dL (9-16); Carbon Dioxide 22 mmol/L (22-29); Chloride 104 mmol/L (96-108); Creatinine Clr Calc Pharmacy 63.7; Estimated Glomerular Filt Rate > 60; Glucose Fasting 71 mg/dL (60-99); Potassium 3.3 mmol/L (3.3-5.1); Sodium 140 mmol/L (135-145); Total Protein 4.5 g/dL (6.5-8.0)
[2020-12-19] MEDS: Lactated Ringers 1,000 ML 100 ML IVCONT (09:47)
[2020-12-19] MEDS: Sucralfate 1 GM TABLET PO (09:47)
--- NOTE | 2020-12-19 12:00 | P.PNIM_ITS ---
Subjective Subjective Date of Service: 12/19/20 Interval History: Continues to have pain with any p.o. intake. Tolerating clears but states it muñoz on the way down and then when it settles in her stomach. No recent vomiting Review of Systems Denies chest pain Denies shortness of breath Denies nausea vomiting diarrhea Physical Exam Vital Signs: Vital Signs: Last Vital Signs Temp 98.2 F 12/19/20 07:19 Pulse 90 12/19/20 07:19 Resp 18 12/19/20 07:19 BP 129/57 L 12/19/20 07:19 Pulse Ox 94 12/19/20 07:19 Body Mass Index 26.8 Const: Other: No acute distress HENMT: Other: Membranes moist oropharynx clear Resp: Other: Scant crackles bilaterally left greater than right....improved Cardio: Other: No S4; positive S1-S2; no S3 murmurs or gallops GI: Other: Soft nontender nondistended with normoactive bowel sounds Neuro: Other: Cranial nerves 2-12 grossly intact as tested. Motor is 5/5 all extremities. Sensation is intact. Cognition for apparent Extrem: Other: No edema bilaterally Objective Data Active Medications Acetaminophen (Acetaminophen 325 Mg Tablet) 650 mg PO Q6H PRN PRN Reason: Pain, Mild (Pain Scale 1-3) Last Admin: 12/16/20 04:49 Dose: 650 mg Documented by: TORY Docusate Sodium (Docusate Sodium 100 Mg Capsule) 100 mg PO DAILY PRN PRN Reason: Constipation Lactated Ringer's (Lr) 1,000 mls @ 100 mls/hr IVCONT .Q10H [facility] Last Admin: 12/19/20 09:47 Dose: 100 mls/hr Documented by: LARRY Ondansetron HCl (Ondansetron Hcl 4 Mg/2 Ml Vial) 4 mg IVPUSH Q8H PRN PRN Reason: Nausea and Vomiting Last Admin: 12/17/20 09:20 Dose: 4 mg Documented by: SPENCER Ondansetron HCl (Ondansetron Hcl 4 Mg/2 Ml Vial) 4 mg IVPUSH ONCE PRN PRN Reason: Nausea and Vomiting Pharmacy Consult (Consult Rx Perform Med Rec) 1 each MISCELLANE ONCE PRN PRN Reason: Consult order Sodium Chloride (0.9 % Sodium Chloride Flush 3 Ml Syringe) 3 ml IVFLUSH QSHIFT [facility] Last Admin: 12/19/20 09:47 Dose: Not Given Documented by: LARRY Non-Admin Reason: IV Running Sucralfate (Sucralfate 1 Gm Tablet) 1 gm PO BIDAC [facility] Last Admin: 12/19/20 09:47 Dose: 1 gm Documented by: LARRY Labs CBC & Chem 7: 12/19/20 06:25 12/19/20 06:25 Labs: Laboratory Results - last 24 hr 12/19/20 12/19/20 06:25 06:25 MCV 92.2 MCH 29.8 MCHC 32.3 RDW 12.3 Plt Count 208 MPV 9.8 Immature Gran % (Auto) 0.4 Neut % (Auto) 68.0 Lymph % (Auto) 13.8 L [place] % (Auto) 15.4 H Eos % (Auto) 1.7 Baso % (Auto) 0.7 Lymph # (Auto) 1.0 L [place] # (Auto) 1.1 Eos # (Auto) 0.1 Baso # (Auto) 0.1 Abs Immat Gran (auto) 0.03 Absolute Neuts (auto) 4.7 Absolute Nucleated RBC 0.000 Nucleated RBC % (auto) 0.0 Anion Gap 17 Estim Creat Clear Calc 63.7 Estimated GFR > 60 Fasting Glucose 71 Calcium 8.0 L Total Bilirubin 0.7 AST 15 ALT 24 Alkaline Phosphatase 45 Total Protein 4.5 L Albumin 2.9 L Assessment and Plan (1) Hematemesis: Status: Acute (2) Acute hyponatremia: Status: Acute Assessment and Plan: A 85-year-old female who denies any past medical history presents to the hospital with coffee-ground emesis of 3 days duration in the backdrop of chronic NSAID use. 1. Coffee-ground emesis No further coffee-ground emesis since admission Continue IV PPI and oral sucralfate(suspension) Findings: Esophagus: GE junction at 37? cm, diaphragm hiatus at 40 cm, consistent with 3 cm sliding hiatal hernia, 10 cm of LA grade D esophagitis (s evere) Stomach: Patchy gastric erythema. Biopsies were obtained. Grade 2 flap valve on retroflexed examination of the cardia. There was 1.5 L of fluid that was suctioned out.? slightly deformed antrum and pylorus Duodenum: severe scattered ulcerative duodenitis with edema and swelling Still having issues with clear liquids; was unable to tolerate oral contrast. Discussed with GI, will get CT scan of abdomen pelvis with IV contrast only. Advance diet after CT scan to full liquids 2.Hyponatremia Normalized. Will continue gentle IV fluids until taking adequate p.o. Follow daily labs DVT prophylaxis: SCDs Quality Stroke Does the patient have a stroke diagnosis?: No VTE Prior VTE?: No VTE Risk Level:: Medical - moderate - high VTE Device Contraindication: N/A - Device Ordered VTE Drug Contraindication: Treatment Not Indicated
[2020-12-19] MEDS: iohexoL 350 MG/ML 100 ML INFUS..BTL IV (16:08)
--- NOTE | 2020-12-19 17:49 | P.EN_ITS ---
Event Note Date of Service: 12/19/20 Event Note: Received call from [facility] with Urgent reading on duyen ent's abdominal and pelvic CT: High-grade distal small bowel obstruction secondary to a short segment of small bowel within a right inguinal hernia. The loop within the hernia is distended with fluid and there is adjacent fluid and fat stranding. Exam: Examines with minimal tenderness right lower quadrant. No visual abnormalities between left lower pelvic area and right lower pelvic area. Right lower pelvic area with a sausage like firmness running along the inguinal fold. Tender to deeper palpation Bowel sounds present. No rebound tenderness appreciated. Patient does not a ppear toxic Call placed to Dr. Rice; She will come to see patient now. Nurse and patient instructed the patient is to be NPO until cleared by Dr. Rice
[2020-12-19] MEDS: 0.9 % Sodium Chloride Flush 3 ML SYRINGE IVFLUSH (17:54)
[2020-12-19] MEDS: Dextrose 5 % and Lactated Ring 1,000 ML 100 ML IVCONT (17:54)
--- NOTE | 2020-12-19 19:34 | P.CONGS_ITS ---
History of Present Illness Consult details Consult date: 12/19/20 Requesting physician: Anup Jewell Narrative: The pt is an 85 year old female who was brought in from the [facility] with abdo discomfort and nausea and vomiting - she was seen by GI who did EGD 2 days ago and found some gastritis and duodenitis. She was treated with ppi and suggestion was made to do CT scan - this got done today and findings show right inguinal hernia incarcerated small bowel loop and small bowel obstruction with proximal dilated bowel and distal decompression. on exam pt does have inguinal mass tender and not reducible. discussed with the radiologist who does not think its a femoral hernia but cant be sure - sees no previous evidence of hernia repairs - pt reports having bilateral inguinal hernia repairs in the past. on admission here she was noted to be in afib which was new for her. seems during this stay she has been in and out of afib. Review of Systems Constitutional: Constitutional: Reports as per [facility] Past Medical History Medical History Asthma Bilateral inguinal hernia Femur fracture, left Family History Family history: reviewed and not pertinent Surgical History Surgical History Hx of appendectomy Hx of tonsillectomy Social History Social History Household Members: Other Housing: Other Housing Other:: [facility] Do you presently have visiting nurse or other home services: No Patient Tobacco Use Status: Never used Tobacco Second Hand Smoke Exposure: No Advance Directives Date on File: 12/16/20 service: No Current occupational status: other Meds Allergies Allergy/AdvReac Type Severity Reaction Status Date / Time Shellfish Allergy Unknown Unknown Uncoded 12/17/20 12:59 Active Medications: Current Medications Acetaminophen (Acetaminophen 325 Mg Tablet) 650 mg PO Q6H PRN PRN Reason: Pain, Mild (Pain Scale 1-3) Last Admin: 12/16/20 04:49 Dose: 650 mg Documented by: Docusate Sodium (Docusate Sodium 100 Mg Capsule) 100 mg PO DAILY PRN PRN Reason: Constipation Dextrose/Lactated Ringer's (D5lr) 1,000 mls @ 100 mls/hr IVCONT .Q10H [facility] Last Admin: 12/19/20 17:54 Dose: 100 mls/hr Documented by: Ondansetron HCl (Ondansetron Hcl 4 Mg/2 Ml Vial) 4 mg IVPUSH Q8H PRN PRN Reason: Nausea and Vomiting Last Admin: 12/17/20 09:20 Dose: 4 mg Documented by: Ondansetron HCl (Ondansetron Hcl 4 Mg/2 Ml Vial) 4 mg IVPUSH ONCE PRN PRN Reason: Nausea and Vomiting Pharmacy Consult (Consult Rx Perform Med Rec) 1 each MISCELLANE ONCE PRN PRN Reason: Consult order Sodium Chloride (0.9 % Sodium Chloride Flush 3 Ml Syringe) 3 ml IVFLUSH QSHIFT [facility] Last Admin: 12/19/20 17:54 Dose: 3 ml Documented by: Sucralfate (Sucralfate Oral Suspension 1 Gm/10 Ml Oral.Susp) 1 gm PO QIDACHS [facility] Last Admin: 12/19/20 17:44 Dose: Not Given Documented by: Home Medications Medication Instructions Recorded Confirmed Last Taken Type budesonide-formoterol HFA 80 2 puff INHALATION BID 12/15/20 12/15/20 Unknown History mcg-4.5 mcg/actuation aerosol inhaler (Symbicort) Physical Exam Vital Signs: Vital Signs: Last Vital Signs Temp 98.7 F 12/19/20 16:16 Pulse 96 12/19/20 16:16 Resp 18 12/19/20 16:16 BP 154/74 H 12/19/20 16:16 Pulse Ox 97 12/19/20 16:16 Body Mass Index 26.8 Const: General: cooperative, healthy appearing, no acute distress, alert and awake Nutritional Appearance: average body habitus Orientation/consciousness: oriented to person, oriented to place and oriented to time HENMT: Head: Yes normal to inspection Resp: Effort & Inspection: normal respiratory effort Cardio: Rate: regular rate Rhythm: regular rhythm GI: Other: abdomen is large distended and tympanitic high pitch bowel sounds right inguinal mass palpable and not reducible, tender - looks below the inguinal ligament , no overlying skin changes Neuro: General: oriented to person, oriented to place and oriented to time Extrem: General: Yes normal to inspection Psych: Appearance: grossly normal Mental Status: mental status grossly normal Speech and movement: Normal speech and movement present Results Labs Result diagrams: 12/19/20 06:25 12/19/20 06:25 Labs: Abnormal lab results 12/19/20 12/19/20 Range/Units 06:25 06:25 RBC 3.86 L (4.20-5.50) X10*6/uL Hgb 11.5 L (12.0-16.0) g/dl Hct 35.6 L (37.0-47.0) % Lymph % (Auto) 13.8 L (20-40) % [place] % (Auto) 15.4 H (2-11) % Lymph # (Auto) 1.0 L (1.2-4.9) X10*3/uL BUN 21 H (9-16) mg/dL Calcium 8.0 L (8.4-10.2) mg/dL Total Protein 4.5 L (6.5-8.0) g/dL Albumin 2.9 L (3.5-5.0) g/dL Short CBC 12/19/20 Range/Units 06:25 WBC 7.0 (4.8-10.8) X10*3/uL Hgb 11.5 L (12.0-16.0) g/dl Hct 35.6 L (37.0-47.0) % Plt Count 208 (160-400) X10*3/uL BMP 12/19/20 06:25 Sodium 140 Potassium 3.3 Chloride 104 Carbon Dioxide 22 BUN 21 H Creatinine 0.67 Calcium 8.0 L Liver Function 12/19/20 Range/Units 06:25 Total Bilirubin 0.7 (0.0-1.0) mg/dL AST 15 (5-31) U/L ALT 24 (0-31) U/L Alkaline Phosphatase 45 (39-117) U/L Albumin 2.9 L (3.5-5.0) g/dL Urine 12/15/20 Range/Units 09:25 Urine Color YELLOW Urine Appearance HAZY Urine pH 6.5 (5.0-8.0) Ur Specific [place] 1.010 (1.005-1.025) Urine Protein TRACE (NEG-TRACE) MG/DL Urine Glucose (UA) NEG (NEG) MG/DL All other labs normal. Imaging Abdomen CT scan report/results: report reviewed and image reviewed Assessment and Plan (1) Incarcerated right inguinal hernia: Status: Acute 85 year old female with right inguinal hernia containing incarcerted bowel causing small bowel obstruction - bowel compromised by clinical exam and ct scan - plan to place ng tube and to OR for exploration and hernia repair. discussed case with hospitalist who agree that benefit of surgery outweights the risks. Risks and benefits discussed with the pt who understands and agrees and wishes to proceed. she is DNR but agrees to undergoing resuscitation that would be amenable to her postop course. goal to extubate at end of surgery. (2) Small bowel obstruction: Status: Acute Procedures Date of Service Date of Service: 12/19/20
--- NOTE | 2020-12-19 20:23 | HO.ANESPROP2 ---
[facility] Active Problems Active Problems: All Active Problems (Updated 12/19/20 @ 19:44 by Shaye Rice MD) Small bowel obstruction (Acute) Incarcerated right inguinal hernia (Acute) Hematemesis (Acute) Acute hyponatremia (Acute) Past Medical History Medical History Asthma Bilateral inguinal hernia Femur fracture, left Functional capacity: independent ambulation Patient : No Family History Family history of problems with anesthesia: No Surgical History Surgical History Hx of appendectomy Hx of tonsillectomy History of Problems with Anesthesia: No Social History Social History Household Members: Other Housing: [facility] Do you presently have visiting nurse or other home services: No Patient Tobacco Use Status: Never used Tobacco Second Hand Smoke Exposure: No Advance Directives Date on File: 12/16/20 service: No Current occupational status: other Meds Allergies Allergy/AdvReac Type Severity Reaction Status Date / Time Shellfish Allergy Unknown Unknown Uncoded 12/17/20 12:59 Active Medications: Current Medications Acetaminophen (Acetaminophen 325 Mg Tablet) 650 mg PO Q6H PRN PRN Reason: Pain, Mild (Pain Scale 1-3) Last Admin: 12/16/20 04:49 Dose: 650 mg Documented by: Docusate Sodium (Docusate Sodium 100 Mg Capsule) 100 mg PO DAILY PRN PRN Reason: Constipation Dextrose/Lactated Ringer's (D5lr) 1,000 mls @ 100 mls/hr IVCONT .Q10H [facility] Last Admin: 12/19/20 17:54 Dose: 100 mls/hr Documented by: Ondansetron HCl (Ondansetron Hcl 4 Mg/2 Ml Vial) 4 mg IVPUSH Q8H PRN PRN Reason: Nausea and Vomiting Last Admin: 12/17/20 09:20 Dose: 4 mg Documented by: Ondansetron HCl (Ondansetron Hcl 4 Mg/2 Ml Vial) 4 mg IVPUSH ONCE PRN PRN Reason: Nausea and Vomiting Pharmacy Consult (Consult Rx Perform Med Rec) 1 each MISCELLANE ONCE PRN PRN Reason: Consult order Sodium Chloride (0.9 % Sodium Chloride Flush 3 Ml Syringe) 3 ml IVFLUSH QSHIFT [facility] Last Admin: 12/19/20 17:54 Dose: 3 ml Documented by: Sucralfate (Sucralfate Oral Suspension 1 Gm/10 Ml Oral.Susp) 1 gm PO QIDACHS [facility] Last Admin: 12/19/20 20:09 Dose: Not Given Documented by: Home Medications Medication Instructions Recorded Confirmed Last Taken Type budesonide-formoterol HFA 80 2 puff INHALATION BID 12/15/20 12/15/20 Unknown History mcg-4.5 mcg/actuation aerosol inhaler (Symbicort) Exam Exam Date and Time: December 19, 20202022 Height,Weight and Vital Signs: Height 5 ft 6 in Weight 75.4 kg Last Vital Signs Temp 98.9 F 12/19/20 20:00 Pulse 96 12/19/20 20:00 Resp 18 12/19/20 20:00 BP 154/75 H 12/19/20 20:00 Pulse Ox 97 12/19/20 20:00 Pertinent Lab Results Pertinent Lab Results: Laboratory Tests 12/15/20 12/15/20 12/15/20 07:34 07:39 07:39 WBC 15.1 H RBC 4.54 Hgb 13.7 Hct 40.1 MCV 88.3 MCH 30.2 MCHC 34.2 RDW 11.9 Plt Count 233 MPV 9.5 Immature Gran % (Auto) 0.5 H Neut % (Auto) 84.0 H Lymph % (Auto) 6.5 L [place] % (Auto) 8.7 Eos % (Auto) 0.1 Baso % (Auto) 0.2 Lymph # (Auto) 1.0 L [place] # (Auto) 1.3 H Eos # (Auto) 0.0 Baso # (Auto) 0.0 Abs Immat Gran (auto) 0.07 H Absolute Neuts (auto) 12.67 H Absolute Nucleated RBC 0.000 Nucleated RBC % (auto) 0.0 Smear Tech's Comments PT INR APTT Sodium 123 L Potassium 3.6 Chloride 86 L Carbon Dioxide 26 Anion Gap 15 BUN 23 H Creatinine 0.75 Estim Creat Clear Calc 56.9 Estimated GFR > 60 Random Glucose 130 H Fasting Glucose Osmolality Calcium 8.9 Total Bilirubin 1.4 H Direct Bilirubin 0.6 H AST 31 D ALT 24 Alkaline Phosphatase 60 Troponin I High Sens B-Natriuretic Peptide Total Protein 6.3 L Albumin 4.1 Lipase 28 Urine Color Urine Appearance Urine pH Ur Specific [place] Urine Protein Urine Glucose (UA) Urine Ketones Urine Blood Urine Nitrite Ur Leukocyte Esterase Urine Osmolality Ur Random Sodium Urine Creatinine COVID-19 ([facility]) Negative COVID-19 Clin Com See Note 12/15/20 12/15/20 12/15/20 07:39 07:39 09:25 WBC RBC Hgb Hct MCV MCH MCHC RDW Plt Count MPV Immature Gran % (Auto) Neut % (Auto) Lymph % (Auto) [place] % (Auto) Eos % (Auto) Baso % (Auto) Lymph # (Auto) [place] # (Auto) Eos # (Auto) Baso # (Auto) Abs Immat Gran (auto) Absolute Neuts (auto) Absolute Nucleated RBC Nucleated RBC % (auto) Smear Tech's Comments PT 11.4 INR 1.0 APTT 27.5 Sodium Potassium Chloride Carbon Dioxide Anion Gap BUN Creatinine Estim Creat Clear Calc Estimated GFR Random Glucose Fasting Glucose Osmolality Calcium Total Bilirubin Direct Bilirubin AST ALT Alkaline Phosphatase Troponin I High Sens 6.4 B-Natriuretic Peptide Total Protein Albumin Lipase Urine Color YELLOW Urine Appearance HAZY Urine pH 6.5 Ur Specific [place] 1.010 Urine Protein TRACE Urine Glucose (UA) NEG Urine Ketones 15 Urine Blood NEG Urine Nitrite NEG Ur Leukocyte Esterase NEG Urine Osmolality Ur Random Sodium Urine Creatinine COVID-19 ([facility]) COVID-19 Clin Com 12/16/20 12/16/20 12/16/20 07:41 07:41 08:59 WBC Cancelled RBC Cancelled Hgb Cancelled Hct Cancelled MCV Cancelled MCH Cancelled MCHC Cancelled RDW Cancelled Plt Count Cancelled MPV Cancelled Immature Gran % (Auto) Cancelled Neut % (Auto) Cancelled Lymph % (Auto) Cancelled [place] % (Auto) Cancelled Eos % (Auto) Cancelled Baso % (Auto) Cancelled Lymph # (Auto) Cancelled [place] # (Auto) Cancelled Eos # (Auto) Cancelled Baso # (Auto) Cancelled Abs Immat Gran (auto) Cancelled Absolute Neuts (auto) Cancelled Absolute Nucleated RBC Cancelled Nucleated RBC % (auto) Cancelled Smear Tech's Comments PT INR APTT Sodium 133 L Potassium 3.6 Chloride 96 Carbon Dioxide 24 Anion Gap 17 BUN 26 H Creatinine 0.72 Estim Creat Clear Calc 59.2 Estimated GFR > 60 Random Glucose 94 Fasting Glucose Osmolality 275 L Calcium 8.8 Total Bilirubin Direct Bilirubin AST ALT Alkaline Phosphatase Troponin I High Sens B-Natriuretic Peptide Total Protein Albumin Lipase Urine Color Urine Appearance Urine pH Ur Specific [place] Urine Protein Urine Glucose (UA) Urine Ketones Urine Blood Urine Nitrite Ur Leukocyte Esterase Urine Osmolality Ur Random Sodium Urine Creatinine COVID-19 ([facility]) COVID-19 Clin Com 12/16/20 12/16/20 12/16/20 08:59 09:05 09:05 WBC 12.6 H RBC 4.45 Hgb 13.4 Hct 39.5 MCV 88.8 MCH 30.1 MCHC 33.9 RDW 12.2 Plt Count 218 MPV 10.1 Immature Gran % (Auto) 0.2 Neut % (Auto) 81.0 H Lymph % (Auto) 6.1 L [place] % (Auto) 12.4 H Eos % (Auto) 0.1 Baso % (Auto) 0.2 Lymph # (Auto) 0.8 L [place] # (Auto) 1.6 H Eos # (Auto) 0.0 Baso # (Auto) 0.0 Abs Immat Gran (auto) 0.03 Absolute Neuts (auto) 10.17 H Absolute Nucleated RBC 0.000 Nucleated RBC % (auto) 0.0 Smear Tech's Comments VERIFIED PT INR APTT Sodium Potassium Chloride Carbon Dioxide Anion Gap BUN Creatinine Estim Creat Clear Calc Estimated GFR Random Glucose Fasting Glucose Osmolality Calcium Total Bilirubin Direct Bilirubin AST ALT Alkaline Phosphatase Troponin I High Sens B-Natriuretic Peptide Total Protein Albumin Lipase Urine Color Urine Appearance Urine pH Ur Specific [place] Urine Protein Urine Glucose (UA) Urine Ketones Urine Blood Urine Nitrite Ur Leukocyte Esterase Urine Osmolality 465 Ur Random Sodium < 20.0 Urine Creatinine 111.72 COVID-19 ([facility]) COVID-19 Clin Com 12/17/20 12/17/20 12/18/20 06:07 06:07 06:56 WBC 7.3 7.4 RBC 4.34 4.05 L Hgb 13.0 12.2 Hct 39.0 36.7 L MCV 89.9 90.6 MCH 30.0 30.1 MCHC 33.3 33.2 RDW 12.1 12.4 Plt Count 236 233 MPV 10.0 10.4 Immature Gran % (Auto) Neut % (Auto) Lymph % (Auto) [place] % (Auto) Eos % (Auto) Baso % (Auto) Lymph # (Auto) [place] # (Auto) Eos # (Auto) Baso # (Auto) Abs Immat Gran (auto) Absolute Neuts (auto) Absolute Nucleated RBC 0.000 0.000 Nucleated RBC % (auto) 0.0 0.0 Smear Tech's Comments PT INR APTT Sodium 134 L Potassium 3.3 Chloride 99 Carbon Dioxide 25 Anion Gap 13 BUN 27 H Creatinine 0.74 Estim Creat Clear Calc 57.6 Estimated GFR > 60 Random Glucose Fasting Glucose 111 H Osmolality Calcium 8.4 Total Bilirubin 1.0 Direct Bilirubin AST 20 ALT 23 Alkaline Phosphatase 53 Troponin I High Sens B-Natriuretic Peptide Total Protein 5.6 L Albumin 3.6 Lipase Urine Color Urine Appearance Urine pH Ur Specific [place] Urine Protein Urine Glucose (UA) Urine Ketones Urine Blood Urine Nitrite Ur Leukocyte Esterase Urine Osmolality Ur Random Sodium Urine Creatinine COVID-19 ([facility]) COVID-19 [employer] 12/18/20 12/18/20 12/18/20 06:56 09:09 09:09 WBC RBC Hgb Hct MCV MCH MCHC RDW Plt Count MPV Immature Gran % (Auto) Neut % (Auto) Lymph % (Auto) [place] % (Auto) Eos % (Auto) Baso % (Auto) Lymph # (Auto) [place] # (Auto) Eos # (Auto) Baso # (Auto) Abs Immat Gran (auto) Absolute Neuts (auto) Absolute Nucleated RBC Nucleated RBC % (auto) Smear Tech's Comments PT INR APTT Sodium 136 Potassium 3.3 Chloride 102 Carbon Dioxide 23 Anion Gap 14 BUN 24 H Creatinine 0.68 Estim Creat Clear Calc 62.7 Estimated GFR > 60 Random Glucose Fasting Glucose 79 Osmolality Calcium 8.3 L Total Bilirubin 0.9 Direct Bilirubin AST 22 ALT 32 H Alkaline Phosphatase 51 Troponin I High Sens 8.6 B-Natriuretic Peptide 75 Total Protein 5.2 L Albumin 3.3 L Lipase Urine Color Urine Appearance Urine pH Ur Specific [place] Urine Protein Urine Glucose (UA) Urine Ketones Urine Blood Urine Nitrite Ur Leukocyte Esterase Urine Osmolality Ur Random Sodium Urine Creatinine COVID-19 ([facility]) COVID-19 [employer] Com 12/19/20 12/19/20 06:25 06:25 WBC 7.0 RBC 3.86 L Hgb 11.5 L Hct 35.6 L MCV 92.2 MCH 29.8 MCHC 32.3 RDW 12.3 Plt Count 208 MPV 9.8 Immature Gran % (Auto) 0.4 Neut % (Auto) 68.0 Lymph % (Auto) 13.8 L [place] % (Auto) 15.4 H Eos % (Auto) 1.7 Baso % (Auto) 0.7 Lymph # (Auto) 1.0 L [place] # (Auto) 1.1 Eos # (Auto) 0.1 Baso # (Auto) 0.1 Abs Immat Gran (auto) 0.03 Absolute Neuts (auto) 4.7 Absolute Nucleated RBC 0.000 Nucleated RBC % (auto) 0.0 Smear Tech's Comments PT INR APTT Sodium 140 Potassium 3.3 Chloride 104 Carbon Dioxide 22 Anion Gap 17 BUN 21 H Creatinine 0.67 Estim Creat Clear Calc 63.7 Estimated GFR > 60 Random Glucose Fasting Glucose 71 Osmolality Calcium 8.0 L Total Bilirubin 0.7 Direct Bilirubin AST 15 ALT 24 Alkaline Phosphatase 45 Troponin I High Sens B-Natriuretic Peptide Total Protein 4.5 L Albumin 2.9 L Lipase Urine Color Urine Appearance Urine pH Ur Specific [place] Urine Protein Urine Glucose (UA) Urine Ketones Urine Blood Urine Nitrite Ur Leukocyte Esterase Urine Osmolality Ur Random Sodium Urine Creatinine COVID-19 ([facility]) COVID-19 Clin Com Assessment and Plan Final Anesthetic Review Family History of Problems with Anesthesia: No History of Problems with Anesthesia: No
--- NOTE | 2020-12-19 22:21 | P.CONAN_ITS ---
[facility] Active Problems Active Problems: All Active Problems (Updated 12/19/20 @ 19:44 by Shaye mills MD) Small bowel obstruction (Acute) Incarcerated right inguinal hernia (Acute) Hematemesis (Acute) Acute hyponatremia (Acute) Past Medical History Medical History Asthma Bilateral inguinal hernia Femur fracture, left Functional capacity: independent ambulation Family History Family history of problems with anesthesia: No Surgical History Surgical History Hx of appendectomy Hx of tonsillectomy History of Problems with Anesthesia: No Social History Social History Household Members: Other Housing: Other Housing Other:: [place] Do you presently have visiting nurse or other home services: No Patient Tobacco Use Status: Never used Tobacco Second Hand Smoke Exposure: No Advance Directives Date on File: 12/16/20 service: No Current occupational status: other Meds Allergies Allergy/AdvReac Type Severity Reaction Status Date / Time Shellfish Allergy Unknown Unknown Uncoded 12/17/20 12:59 Active Medications: Current Medications Acetaminophen (Acetaminophen 325 Mg Tablet) 650 mg PO Q6H PRN PRN Reason: Pain, Mild (Pain Scale 1-3) Last Admin: 12/16/20 04:49 Dose: 650 mg Documented by: Docusate Sodium (Docusate Sodium 100 Mg Capsule) 100 mg PO DAILY PRN PRN Reason: Constipation Dextrose/Lactated Ringer's (D5lr) 1,000 mls @ 100 mls/hr IVCONT .Q10H LAMIN Last Infusion: 12/19/20 22:14 Dose: 0 mls/hr Documented by: Ondansetron HCl (Ondansetron Hcl 4 Mg/2 Ml Vial) 4 mg IVPUSH Q8H PRN PRN Reason: Nausea and Vomiting Last Admin: 12/17/20 09:20 Dose: 4 mg Documented by: Ondansetron HCl (Ondansetron Hcl 4 Mg/2 Ml Vial) 4 mg IVPUSH ONCE PRN PRN Reason: Nausea and Vomiting Pharmacy Consult (Consult Rx Perform Med Rec) 1 each MISCELLANE ONCE PRN PRN Reason: Consult order Sodium Chloride (0.9 % Sodium Chloride Flush 3 Ml Syringe) 3 ml IVFLUSH QSHIFT [facility] Last Admin: 12/19/20 17:54 Dose: 3 ml Documented by: Sucralfate (Sucralfate Oral Suspension 1 Gm/10 Ml Oral.Susp) 1 gm PO QIDACHS [facility] Last Admin: 12/19/20 20:09 Dose: Not Given Documented by: Home Medications Medication Instructions Recorded Confirmed Last Taken Type budesonide-formoterol HFA 80 2 puff INHALATION BID 12/15/20 12/15/20 Unknown History mcg-4.5 mcg/actuation aerosol inhaler (Symbicort) Exam Exam Date and Time: December 19, 20202221 Height,Weight and Vital Signs: Height 5 ft 6 in Weight 75.4 kg Last Vital Signs Temp 98.9 F 12/19/20 20:00 Pulse 96 12/19/20 20:00 Resp 18 12/19/20 20:00 BP 154/75 H 12/19/20 20:00 Pulse Ox 97 12/19/20 20:00 Pertinent Lab Results Pertinent Lab Results: Laboratory Tests 12/15/20 12/15/20 12/15/20 07:34 07:39 07:39 WBC 15.1 H RBC 4.54 Hgb 13.7 Hct 40.1 MCV 88.3 MCH 30.2 MCHC 34.2 RDW 11.9 Plt Count 233 MPV 9.5 Immature Gran % (Auto) 0.5 H Neut % (Auto) 84.0 H Lymph % (Auto) 6.5 L [place] % (Auto) 8.7 Eos % (Auto) 0.1 Baso % (Auto) 0.2 Lymph # (Auto) 1.0 L [place] # (Auto) 1.3 H Eos # (Auto) 0.0 Baso # (Auto) 0.0 Abs Immat Gran (auto) 0.07 H Absolute Neuts (auto) 12.67 H Absolute Nucleated RBC 0.000 Nucleated RBC % (auto) 0.0 Smear Tech's Comments PT INR APTT Sodium 123 L Potassium 3.6 Chloride 86 L Carbon Dioxide 26 Anion Gap 15 BUN 23 H Creatinine 0.75 Estim Creat Clear Calc 56.9 Estimated GFR > 60 Random Glucose 130 H Fasting Glucose Osmolality Calcium 8.9 Total Bilirubin 1.4 H Direct Bilirubin 0.6 H AST 31 D ALT 24 Alkaline Phosphatase 60 Troponin I High Sens B-Natriuretic Peptide Total Protein 6.3 L Albumin 4.1 Lipase 28 Urine Color Urine Appearance Urine pH Ur Specific [place] Urine Protein Urine Glucose (UA) Urine Ketones Urine Blood Urine Nitrite Ur Leukocyte Esterase Urine Osmolality Ur Random Sodium Urine Creatinine COVID-19 ([facility]) Negative COVID-19 Clin Com See Note 12/15/20 12/15/20 12/15/20 07:39 07:39 09:25 WBC RBC Hgb Hct MCV MCH MCHC RDW Plt Count MPV Immature Gran % (Auto) Neut % (Auto) Lymph % (Auto) [place] % (Auto) Eos % (Auto) Baso % (Auto) Lymph # (Auto) [place] # (Auto) Eos # (Auto) Baso # (Auto) Abs Immat Gran (auto) Absolute Neuts (auto) Absolute Nucleated RBC Nucleated RBC % (auto) Smear Tech's Comments PT 11.4 INR 1.0 APTT 27.5 Sodium Potassium Chloride Carbon Dioxide Anion Gap BUN Creatinine Estim Creat Clear Calc Estimated GFR Random Glucose Fasting Glucose Osmolality Calcium Total Bilirubin Direct Bilirubin AST ALT Alkaline Phosphatase Troponin I High Sens 6.4 B-Natriuretic Peptide Total Protein Albumin Lipase Urine Color YELLOW Urine Appearance HAZY Urine pH 6.5 Ur Specific [place] 1.010 Urine Protein TRACE Urine Glucose (UA) NEG Urine Ketones 15 Urine Blood NEG Urine Nitrite NEG Ur Leukocyte Esterase NEG Urine Osmolality Ur Random Sodium Urine Creatinine COVID-19 ([facility]) COVID-19 Clin Com 12/16/20 12/16/20 12/16/20 07:41 07:41 08:59 WBC Cancelled RBC Cancelled Hgb Cancelled Hct Cancelled MCV Cancelled MCH Cancelled MCHC Cancelled RDW Cancelled Plt Count Cancelled MPV Cancelled Immature Gran % (Auto) Cancelled Neut % (Auto) Cancelled Lymph % (Auto) Cancelled [place] % (Auto) Cancelled Eos % (Auto) Cancelled Baso % (Auto) Cancelled Lymph # (Auto) Cancelled [place] # (Auto) Cancelled Eos # (Auto) Cancelled Baso # (Auto) Cancelled Abs Immat Gran (auto) Cancelled Absolute Neuts (auto) Cancelled Absolute Nucleated RBC Cancelled Nucleated RBC % (auto) Cancelled Smear Tech's Comments PT INR APTT Sodium 133 L Potassium 3.6 Chloride 96 Carbon Dioxide 24 Anion Gap 17 BUN 26 H Creatinine 0.72 Estim Creat Clear Calc 59.2 Estimated GFR > 60 Random Glucose 94 Fasting Glucose Osmolality 275 L Calcium 8.8 Total Bilirubin Direct Bilirubin AST ALT Alkaline Phosphatase Troponin I High Sens B-Natriuretic Peptide Total Protein Albumin Lipase Urine Color Urine Appearance Urine pH Ur Specific [place] Urine Protein Urine Glucose (UA) Urine Ketones Urine Blood Urine Nitrite Ur Leukocyte Esterase Urine Osmolality Ur Random Sodium Urine Creatinine COVID-19 ([facility]) COVID-19 Clin Com 12/16/20 12/16/20 12/16/20 08:59 09:05 09:05 WBC 12.6 H RBC 4.45 Hgb 13.4 Hct 39.5 MCV 88.8 MCH 30.1 MCHC 33.9 RDW 12.2 Plt Count 218 MPV 10.1 Immature Gran % (Auto) 0.2 Neut % (Auto) 81.0 H Lymph % (Auto) 6.1 L [place] % (Auto) 12.4 H Eos % (Auto) 0.1 Baso % (Auto) 0.2 Lymph # (Auto) 0.8 L [place] # (Auto) 1.6 H Eos # (Auto) 0.0 Baso # (Auto) 0.0 Abs Immat Gran (auto) 0.03 Absolute Neuts (auto) 10.17 H Absolute Nucleated RBC 0.000 Nucleated RBC % (auto) 0.0 Smear Tech's Comments VERIFIED PT INR APTT Sodium Potassium Chloride Carbon Dioxide Anion Gap BUN Creatinine Estim Creat Clear Calc Estimated GFR Random Glucose Fasting Glucose Osmolality Calcium Total Bilirubin Direct Bilirubin AST ALT Alkaline Phosphatase Troponin I High Sens B-Natriuretic Peptide Total Protein Albumin Lipase Urine Color Urine Appearance Urine pH Ur Specific [place] Urine Protein Urine Glucose (UA) Urine Ketones Urine Blood Urine Nitrite Ur Leukocyte Esterase Urine Osmolality 465 Ur Random Sodium < 20.0 Urine Creatinine 111.72 COVID-19 ([facility]) COVID-19 Clin Com 12/17/20 12/17/20 12/18/20 06:07 06:07 06:56 WBC 7.3 7.4 RBC 4.34 4.05 L Hgb 13.0 12.2 Hct 39.0 36.7 L MCV 89.9 90.6 MCH 30.0 30.1 MCHC 33.3 33.2 RDW 12.1 12.4 Plt Count 236 233 MPV 10.0 10.4 Immature Gran % (Auto) Neut % (Auto) Lymph % (Auto) [place] % (Auto) Eos % (Auto) Baso % (Auto) Lymph # (Auto) [place] # (Auto) Eos # (Auto) Baso # (Auto) Abs Immat Gran (auto) Absolute Neuts (auto) Absolute Nucleated RBC 0.000 0.000 Nucleated RBC % (auto) 0.0 0.0 Smear Tech's Comments PT INR APTT Sodium 134 L Potassium 3.3 Chloride 99 Carbon Dioxide 25 Anion Gap 13 BUN 27 H Creatinine 0.74 Estim Creat Clear Calc 57.6 Estimated GFR > 60 Random Glucose Fasting Glucose 111 H Osmolality Calcium 8.4 Total Bilirubin 1.0 Direct Bilirubin AST 20 ALT 23 Alkaline Phosphatase 53 Troponin I High Sens B-Natriuretic Peptide Total Protein 5.6 L Albumin 3.6 Lipase Urine Color Urine Appearance Urine pH Ur Specific [place] Urine Protein Urine Glucose (UA) Urine Ketones Urine Blood Urine Nitrite Ur Leukocyte Esterase Urine Osmolality Ur Random Sodium Urine Creatinine COVID-19 ([facility]) COVID-19 [place] 12/18/20 12/18/20 12/18/20 06:56 09:09 09:09 WBC RBC Hgb Hct MCV MCH MCHC RDW Plt Count MPV Immature Gran % (Auto) Neut % (Auto) Lymph % (Auto) [place] % (Auto) Eos % (Auto) Baso % (Auto) Lymph # (Auto) [place] # (Auto) Eos # (Auto) Baso # (Auto) Abs Immat Gran (auto) Absolute Neuts (auto) Absolute Nucleated RBC Nucleated RBC % (auto) Smear Tech's Comments PT INR APTT Sodium 136 Potassium 3.3 Chloride 102 Carbon Dioxide 23 Anion Gap 14 BUN 24 H Creatinine 0.68 Estim Creat Clear Calc 62.7 Estimated GFR > 60 Random Glucose Fasting Glucose 79 Osmolality Calcium 8.3 L Total Bilirubin 0.9 Direct Bilirubin AST 22 ALT 32 H Alkaline Phosphatase 51 Troponin I High Sens 8.6 B-Natriuretic Peptide 75 Total Protein 5.2 L Albumin 3.3 L Lipase Urine Color Urine Appearance Urine pH Ur Specific [place] Urine Protein Urine Glucose (UA) Urine Ketones Urine Blood Urine Nitrite Ur Leukocyte Esterase Urine Osmolality Ur Random Sodium Urine Creatinine COVID-19 ([facility]) COVID-19 [employer] Com 12/19/20 12/19/20 06:25 06:25 WBC 7.0 RBC 3.86 L Hgb 11.5 L Hct 35.6 L MCV 92.2 MCH 29.8 MCHC 32.3 RDW 12.3 Plt Count 208 MPV 9.8 Immature Gran % (Auto) 0.4 Neut % (Auto) 68.0 Lymph % (Auto) 13.8 L [place] % (Auto) 15.4 H Eos % (Auto) 1.7 Baso % (Auto) 0.7 Lymph # (Auto) 1.0 L [place] # (Auto) 1.1 Eos # (Auto) 0.1 Baso # (Auto) 0.1 Abs Immat Gran (auto) 0.03 Absolute Neuts (auto) 4.7 Absolute Nucleated RBC 0.000 Nucleated RBC % (auto) 0.0 Smear Tech's Comments PT INR APTT Sodium 140 Potassium 3.3 Chloride 104 Carbon Dioxide 22 Anion Gap 17 BUN 21 H Creatinine 0.67 Estim Creat Clear Calc 63.7 Estimated GFR > 60 Random Glucose Fasting Glucose 71 Osmolality Calcium 8.0 L Total Bilirubin 0.7 Direct Bilirubin AST 15 ALT 24 Alkaline Phosphatase 45 Troponin I High Sens B-Natriuretic Peptide Total Protein 4.5 L Albumin 2.9 L Lipase Urine Color Urine Appearance Urine pH Ur Specific [place] Urine Protein Urine Glucose (UA) Urine Ketones Urine Blood Urine Nitrite Ur Leukocyte Esterase Urine Osmolality Ur Random Sodium Urine Creatinine COVID-19 ([facility]) COVID-19 Clin Com Airway Mallampati Class: II TM Dist: >3cm Neck ROM: Full Heart: irreg. Lungs: CTA Assessment and Plan Final Anesthetic Review Family History of Problems with Anesthesia: No History of Problems with Anesthesia: No ASA Class: III and Emergency Final Preanesthetic Review: Consent Obtained/Reviewed and Anes Risks/Benef Reviewed Patient Risk: High Procedure Risk: High Anesthetic Plan Anesthetic Plan: GA Disposition: Standard PACU
--- NOTE | 2020-12-19 22:50 | PC.NURSE ---
Dr. Rice, Sonny RN, and this RN at bedside to place NG tube. Attempted twice, unable to advance down either nare. Dr. Rice ordered to DC NG tube order. PACU at bedside to transfer pt down to surgery. Waiting for post op report.
[2020-12-20] VITALS (31 sets, daily range): BP systolic 88–135; BP diastolic 34–52; PULSE 6–115; RESP 18–25; TEMP 36.2–37.5; O2SAT 91–99; BMI 26.8
--- NOTE | 2020-12-20 01:36 | PM.OP ---
Brief Operative Note Date of Service: 12/19/20 Pre-op diagnosis: small bowel obstruction with right incarcerated femoral hernia Post-op diagnosis: same Procedure: reduction of right femoral hernia with small bowel resection and anastomosis and closure of femoral hernia with mesh small loop of incarcerated small bowel which was probably somewhat chronically involved as there was a stricture in the area - fat also incarcerated removed. --sent for pathology small bowel and hernia sac and contents and previous hernia mesh - small segment resected approx 15 cm and side to side anastomosis with samy stapler pt had hernia repair before with onlay mesh which was removed - hernia was femoral hernia pt has strong potential for aspiration pneumonia as vomited during intubation - attempt on ng tube pre intubation not successful resection done and peritoneum covered over bowel so that mesh not exposed to bowel - extraperitoneal all around phs mesh used to plug hole of femoral hernia with modification and larger bard polypropelene mesh used over this secured in all the standard hernia attachment areas Surgeon: Shaye Rice MD Anesthesia: GETA Was an Curriculum Specialist used for this Procedure?: No Estimated blood loss (mL): 50 IV fluids (mL): 2,300 Urine output (mL): 340 Pathology: other Condition: stable Disposition: ICU
[2020-12-20 01:53] LABS: MANUAL DIFF FLAG NO
[2020-12-20 01:54] LABS: Basophils Percent Auto 0.3 % (0-2); Eosinophils Absolute Auto 0.1 X10*3/uL (0.0-0.4); Eosinophils Percent Auto 1.4 % (0-4); Hematocrit 39.2 % (37.0-47.0); Hemoglobin 12.8 g/dl (12.0-16.0); Imm Gran Abs Auto 0.04 X10*3/uL (0.00-0.03); Imm Gran Pct Auto 1.1 % (0.0-0.4); Lymphocytes Absolute Auto 0.3 X10*3/uL (1.2-4.9); Lymphocytes Percent Auto 8.2 % (20-40); Mean Corpuscular HGB Conc 32.7 g/dl (31.0-35.0); Mean Corpuscular Hemoglobin 30.6 pg (27.0-33.0); Mean Corpuscular Volume 93.8 fL (80.0-98.0); Mean Platelet Volume 9.4 fL (9.4-12.3); Monocytes Absolute Auto 0.3 X10*3/uL (0.1-1.2); Monocytes Percent Auto 7.3 % (2-11); Neutrophils Absolute Auto 2.9 x10*3/uL (2.0-8.3); Neutrophils Percent Auto 81.7 % (45-73); Platelet Count 203 X10*3/uL (160-400); Red Blood Count 4.18 X10*6/uL (4.20-5.50); Red Cell Distribution Width 12.5 % (11.0-16.0); White Blood Count 3.6 X10*3/uL (4.8-10.8)
[2020-12-20 02:13] LABS: Alanine Aminotransferase 22 U/L (0-31); Albumin Level 2.7 g/dL (3.5-5.0); Alkaline Phosphatase 44 U/L (39-117); Anion Gap 17 (12-20); Aspartate Amino Transferase 15 U/L (5-31); Bilirubin Total 0.6 mg/dL (0.0-1.0); Blood Urea Nitrogen 16 mg/dL (9-16); Calcium 7.5 mg/dL (8.4-10.2); Carbon Dioxide 20 mmol/L (22-29); Chloride 106 mmol/L (96-108); Creatinine Clr Calc Pharmacy 56.9; Estimated Glomerular Filt Rate > 60; Glucose Random 118 mg/dL (60-115); Magnesium 1.7 mg/dL (1.6-2.6); Phosphorus 3.7 mg/dL (2.7-4.5); Potassium 3.2 mmol/L (3.3-5.1); Sodium 140 mmol/L (135-145); Total Protein 4.3 g/dL (6.5-8.0)
[2020-12-20] MEDS: propofoL 1,000 MG/100 ML VIAL 11.31 MG IVCONT (02:15)
[2020-12-20] MEDS: fentaNYL citrate/NS 1,000 MCG/100 ML PLAST..BAG 10 MCG IVCONT (02:16)
[2020-12-20] MEDS: 0.9 % Sodium Chloride Flush 3 ML SYRINGE IVFLUSH ×2 (02:16→14:14)
[2020-12-20 02:21] LABS: ABG HCO3 21 mmol/L (22-26); ABG pCO2 48 mmHg (32-45); ABG pCO2 TC 47 mmHg (32-45); ABG pH 7.24 (7.35-7.45); ABG pH TC 7.25 (7.35-7.45); ABG pO2 86 mmHg (83-108); ABG pO2 TC 83 (83-108)
[2020-12-20 03:13] LABS: ABG Refer to POC result
[2020-12-20] MEDS: Piperacillin Sodium/Tazobactam 3.375 GM in 0.9 % Sodium Chloride 50 ML IV ×3 (03:14→17:04)
--- NOTE | 2020-12-20 04:40 | PC.NURSE ---
RECEIVED FROM OR POST-OP INCARCERATED HERNIA/SBO REPAIR...TUBED VENTED..#7.0 ETT 22 CM AT ARRIVAL...CXR DONE/REVIEWED BY PA..ETT ADVANCED TO 24CM...AC 14 INCREASED TO 16 POST-ABG RESULTS...AC16/TV 450/FIO2 70%/PEEP 5....SAO2 95%...NG-TUBE DRAINING BILIOUS-BLOOD TINGED DRAINAGE...NO ADVANCEMENT PER PA D/T PREVIOUS DIFFICULT INSERTION ATTEMPTS....ABDOMEN SILENT...ABDOMINAL DRESSING DRY/INTACT.....BP MARGINAL...MULTIPLE ATTEMPTS TO OBTAIN ADDITIONAL IV ACCESS W/O SUCCESS...PROPOFOL WEANED FROM 50--20 MCG/KG/MIN & FENTANYL 100--50 MCG/HR...[id number]/KCL 20MEQ 100 CC/HR...ORDER FOR D5LR 100 CC/HR AND KCL20 MEQ/100 CC BOLUS TO BE HELD PER PA...MACK YELLOW URINE
--- NOTE | 2020-12-20 04:44 | P.CONCC_ITS ---
History of Present Illness Data of Consult Service Date: 12/20/20 Requesting physician: Anup Jewell Primary Care Provider: Nayan Chavez MD HPI Reason for consult: Postop for incarcerated hernia and aspiration pneumonitis during intubation Chief complaint: ?Postop for incarcerated hernia and aspiration pneumonitis during intubation. HPI: ?Patient without a significant past medical history was section of prior hernia repairs presented to us after undergoing reduction of right femoral hernia with small bowel resection and anastomosis, closure of femoral hernia with mesh due to small-bowel obstruction and right incarcerated femoral hernia procedure performed by Dr. Palumbo, is reported the as surgery was overall uneventful with exception of possible aspiration of gastric contents as the patient put out about 1200 cc of foul-smelling material from her mouth during intubation but according to Anesthesiology this was quickly suctioned get the question arises whether not she aspirated. Patient had mid admitted to the regular floor on December 15, 2020 with complaints of intractable vomiting which had started a few days prior to admission and had developed coffee-ground emesis.? She had complained of abdominal epigastric pain.? Patient had been taking ibuprofen.? It was attributed that she must have had an upper GI bleed, for which he underwent endoscopy and these showed gastritis and erosive esophagitis. ?She had been dora toño with PPI and sucralfate, was noted to be hyponatremic and have acute kidney injury which was all taken care of on the floors.? Reportedly she had new onset atrial fibrillation per EKG however this was not found on the system, cardiology did see the patient she has a Remberto Vasc score of 3 but given the recent GI bleed no anticoagulation was granted at this point. While in the hospital the patient continued to have discomfort and a CT of the abdomen pelvis was performed which showed a high-grade distal small-bowel obstruction secondary to a short segment of small bowel within the right ingui nal hernia and with the loop within the hernia was distended with fluid and adjacent fat stranding.? Patient was seen by the above mentioned surgeon and the patient underwent the above-mentioned procedure today. Currently patient is intubated, sedated although she is starting to wake up, she appears hemodynamically stable at this point. ROS:? Unable to perform as the patient is intubated Past Medical History:? As above Past Surgical History:? Bilateral hernia repairs Family history: ?Unknown Social History:? Patient is a non, no history of smoking, no history of alcohol consumption. CODE STATUS: Per records patient has a DNR DNI order however this was revoked for the surgery and immediate post op management Allergies: ?Shellfish Home Medications:? Please see [facility] rec PHYSICAL EXAM: ?115/52, heart rate 95, respirations 20, O2 sat 96% while on a ventilator with the following settings AC 14, 450, 5, 70% General:? Intubated and sedated. ? Skin:? Lower abdominal surgical site covered with dressing. ?Intact, no lesions, edema, erythema, clubbing or cyanosis.? No ulcers.? Alvarenga catheter in place ? HEENT:? Head is normocephalic, atraumatic, pupils equal round reactive to light accommodation bilaterally.? Extraocular movements appear intact.? Buccal mucosa is moist, Neck is supple without lymphadenopathy. ? Cardiac:? Clear S1-S2, no murmurs rubs or gallops. ? Pulmonary:? Coarse lung sounds bilaterally and throughout with fine rhonchi at the bases particularly on the right side.? No crackles. ? Abdomen:? Protuberant, positive bowel sounds in all 4 quadrants.? Soft, nontender, no rebound or guarding.? Musculoskeletal:? Passive range of motion of the major joints of all 4 extremities reveal no cogwheeling.? There is no asymmetry of the legs and no edema noted. ? Neurologic:? As above, . ? Motor strength as above.? Vascular:? 2+ pulses upper and lower extremities distally. ? SIGNIFICANT LABORATORY DATA: ?White blood cells 3.6, hemoglobin 2.8, hematocrit 39.2, platelets 203. ABG shows pH of 7 point 2 4, pCO2 48, HC03 of 21 base excess -6. Sodium 140, potassium 3.2, chloride 1 6, carbon dioxide 20, anion gap 17, BUN 16, creatinine 0.75, calcium 7.5. REVIEW OF IMAGES: ?As above EKG REVIEW: ?EKG review from December 16 shows sinus rhythm, there is no strips or EKG documenting the atrial fibrillation reported. ASSESSMENT AND PLAN: 1. ASPIRATION PNEUMONITIS due to gastric content regurgitation during intubation. 2. ACUTE KIDNEY INJURY WITH BUN TO CREATININE RATIO OF 3. REACTIVE SINUS TACHYCARDIA WITH UNDERLYING HISTORY OF PAROXYSMAL AFIB 4. RESOLVED HYPONATREMIA DUE TO DEHYDRATION 5. HEMATEMESIS DUE TO UPPER GI BLEED GASTRITIS AND ESOPHAGITIS 6. SMALL-BOWEL OBSTRUCTION AND INCARCERATED HERNIA POSTOP SURGICAL REPAIR 7. MY RESPIRATORY ACIDOSIS DUE TO A VENTILATION ISSUES 8. ACUTE HYPOKALEMIA 9. HYPOALBUMINEMIA Patient will be kept intubated given the a.m. aspiration pneumonitis, chest x- ray certainly shows significant white out on both lungs according to my view, also the endotracheal tube which is currently 22 at the lip appears to be about 5 cm from the oracio, this will be advanced 2 cm and we will recheck.? At this point the NG tube appears to be at the EG junction but per surgical input, and this should not be advanced. ?The patient will be placed on propofol and fentanyl, gentle hydration will be done with D5 LR and we will replace her potassium.? RR on ventilator will be increased with the hope to wash out the CO2, will recheck labs in the morning. GI PROPHYLAXIS:? Ppi DVT PROPHYLAXIS:? Pneumatic stockings only ? Critical care time used for critical evaluation of this patient, diagnosis, treatment and coordination of care, review her records and documentation TOTAL CRITICAL CARE TIME 90 MIN . Patient's care was discussed in detail with Dr. Irby.? He is aware of all the above as well as the plan of care for this patient. [facility] Past Medical History Medical History Asthma Bilateral inguinal hernia Femur fracture, left Functional capacity: independent ambulation Family History Family history: reviewed and not pertinent Surgical History Surgical History Hx of appendectomy Hx of tonsillectomy Social History Social History Household Members: Other Housing: Other Housing Other:: [place] Do you presently have visiting nurse or other home services: No Patient Tobacco Use Status: Never used Tobacco Second Hand Smoke Exposure: No Advance Directives Date on File: 12/16/20 service: No Current occupational status: other Meds Allergies Allergy/AdvReac Type Severity Reaction Status Date / Time Shellfish Allergy Unknown Unknown Uncoded 12/17/20 12:59 Active Medications: Current Medications Acetaminophen (Acetaminophen 325 Mg Tablet) 650 mg PO Q6H PRN PRN Reason: Pain, Mild (Pain Scale 1-3) Last Admin: 12/16/20 04:49 Dose: 650 mg Documented by: Albuterol/Ipratropium (Albuterol/Iprat 2.5/0.5mg 3 Ml Ampul.Neb) 3 ml INHALE RQ6H PRN PRN Reason: Wheezing Docusate Sodium (Docusate Sodium 100 Mg Capsule) 100 mg PO DAILY PRN PRN Reason: Constipation Propofol (Diprivan) 1,000 mg in 100 mls @ 0 mls/hr IVCONT .Q0M LAMIN; Protocol Last Titration: 12/20/20 04:15 Dose: 20 mcg/kg/min, 9.05 mls/hr Documented by: Fentanyl (Sublimaze/Ns) 1,000 mcg in 100 mls @ 0 mls/hr IVCONT .Q0M LAMIN; Protocol Last Titration: 12/20/20 04:15 Dose: 50 mcg/hr, 5 mls/hr Documented by: Piperacillin Sod/Tazobactam (Sod 3.375 gm/ Sodium Chloride) 50 mls @ 100 mls/hr IV Q6H LAMIN Dextrose/Lactated Ringer's (D5lr) 1,000 mls @ 100 mls/hr IVCONT .Q10H LAMIN Last Admin: 12/20/20 04:14 Dose: Not Given Documented by: Potassium Cl/Dextrose/Lact Ringer's () 20 meq in 1,000 mls @ 100 mls/hr IVCONT .Q10H LAMIN Naloxone HCl (Naloxone Hcl 0.4 Mg/Ml Vial) 0.2 mg IVPUSH Q2M PRN PRN Reason: Excessive sedation or RR < 8 Ondansetron HCl (Ondansetron Hcl 4 Mg/2 Ml Vial) 4 mg IVPUSH Q8H PRN PRN Reason: Nausea and Vomiting Last Admin: 12/17/20 09:20 Dose: 4 mg Documented by: Ondansetron HCl (Ondansetron Hcl 4 Mg/2 Ml Vial) 4 mg IVPUSH ONCE PRN PRN Reason: Nausea and Vomiting Pantoprazole Sodium (Pantoprazole Sodium 40 Mg/10 Ml Vial) 40 mg IVPUSH DAILY@0630 [facility] Pharmacy Consult (Consult Rx Perform Med Rec) 1 each MISCELLANE ONCE PRN PRN Reason: Consult order Sodium Chloride (0.9 % Sodium Chloride Flush 3 Ml Syringe) 3 ml IVFLUSH QSHIFT [facility] Last Admin: 12/20/20 02:16 Dose: 3 ml Documented by: Sucralfate (Sucralfate Oral Suspension 1 Gm/10 Ml Oral.Susp) 1 gm PO QIDACHS [facility] Last Admin: 12/19/20 20:09 Dose: Not Given Documented by: Home Medications Medication Instructions Recorded Confirmed Last Taken Type budesonide-formoterol HFA 80 2 puff INHALATION BID 12/15/20 12/15/20 Unknown History mcg-4.5 mcg/actuation aerosol inhaler (Symbicort) Physical Exam Vital Signs: Vital Signs: Last Vital Signs Temp 97.2 F 12/20/20 03:43 Pulse 98 12/20/20 03:43 Resp 20 12/20/20 03:43 BP 97/43 L 12/20/20 03:43 Pulse Ox 95 12/20/20 03:43 Body Mass Index 26.8 Results Labs CBC & Chem 7: 12/20/20 01:48 12/20/20 01:48 Labs: Short CBC 12/19/20 12/20/20 Range/Units 06:25 01:48 WBC 7.0 3.6 L (4.8-10.8) X10*3/uL Hgb 11.5 L 12.8 (12.0-16.0) g/dl Hct 35.6 L 39.2 (37.0-47.0) % Plt Count 208 203 (160-400) X10*3/uL BMP 12/19/20 12/20/20 06:25 01:48 Sodium 140 140 Potassium 3.3 3.2 L Chloride 104 106 Carbon Dioxide 22 20 L BUN 21 H 16 Creatinine 0.67 0.75 Calcium 8.0 L 7.5 L D Liver Function 12/19/20 12/20/20 Range/Units 06:25 01:48 Total Bilirubin 0.7 0.6 (0.0-1.0) mg/dL AST 15 15 (5-31) U/L ALT 24 22 (0-31) U/L Alkaline Phosphatase 45 44 (39-117) U/L Albumin 2.9 L 2.7 L (3.5-5.0) g/dL
[2020-12-20] MEDS: KCl 20 mEq in 5 % Dex/Lact Rin 20 MEQ/1,000 ML IV.SOLN 100 MEQ IVCONT (04:51)
[2020-12-20] MEDS: Pantoprazole Sodium 40 MG/10 ML VIAL IVPUSH (06:26)
--- NOTE | 2020-12-20 07:43 | P.PNGS_ITS ---
Subjective Subjective Date of Service: 12/20/20 Interval history: history reviewed remains intubated for liikely aspiration perioperatively sedated Physical Exam Vital Signs: Vital Signs: Last Vital Signs Temp 97.2 F 12/20/20 03:43 Pulse 108 H 12/20/20 07:00 Resp 19 12/20/20 07:00 BP 89/42 L 12/20/20 07:00 Pulse Ox 98 12/20/20 07:00 Body Mass Index 26.8 Chemistry 12/18/20 12/19/20 12/20/20 06:56 06:25 01:48 Sodium 136 140 140 Potassium 3.3 3.3 3.2 L Carbon Dioxide 23 22 20 L BUN 24 H 21 H 16 Creatinine 0.68 0.67 0.75 Calcium 8.3 L 8.0 L 7.5 L D Phosphorus 3.7 Hematology 12/18/20 12/19/20 12/20/20 06:56 06:25 01:48 WBC 7.4 7.0 3.6 L Hgb 12.2 11.5 L 12.8 Plt Count 233 208 203 Const: Other: intubated and sedated Resp: Other: on ventilator Cardio: Rate: tachycardic GI: Other: soft, dressings dry Procedures Date of Service Date of Service: 12/20/20 Progress Note: A&P Assessment and plan (1) Incarcerated right inguinal hernia: Status: Acute Assessment and Plan: S/P SB resection, repair of hernia vent management pain control NGT in place urine output adequate treat for possible aspiration ICU care Fall Risk Details Current Medications: Current Medications Acetaminophen (Acetaminophen 325 Mg Tablet) 650 mg PO Q6H PRN PRN Reason: Pain, Mild (Pain Scale 1-3) Last Admin: 12/16/20 04:49 Dose: 650 mg Documented by: Albuterol/Ipratropium (Albuterol/Iprat 2.5/0.5mg 3 Ml Ampul.Neb) 3 ml INHALE RQ6H PRN PRN Reason: Wheezing Docusate Sodium (Docusate Sodium 100 Mg Capsule) 100 mg PO DAILY PRN PRN Reason: Constipation Propofol (Diprivan) 1,000 mg in 100 mls @ 0 mls/hr IVCONT .Q0M [facility]; Protocol Last Titration: 12/20/20 04:15 Dose: 20 mcg/kg/min, 9.05 mls/hr Documented by: Fentanyl (Sublimaze/Ns) 1,000 mcg in 100 mls @ 0 mls/hr IVCONT .Q0M [facility]; Protocol Last Titration: 12/20/20 04:15 Dose: 50 mcg/hr, 5 mls/hr Documented by: Piperacillin Sod/Tazobactam (Sod 3.375 gm/ Sodium Chloride) 50 mls @ 100 mls/hr IV Q6H [facility] Dextrose/Lactated Ringer's (D5lr) 1,000 mls @ 100 mls/hr IVCONT .Q10H [facility] Last Admin: 12/20/20 04:14 Dose: Not Given Documented by: Potassium Cl/Dextrose/Lact Ringer's () 20 meq in 1,000 mls @ 100 mls/hr IVCONT .Q10H [facility] Last Admin: 12/20/20 04:51 Dose: 100 mls/hr Documented by: Naloxone HCl (Naloxone Hcl 0.4 Mg/Ml Vial) 0.2 mg IVPUSH Q2M PRN PRN Reason: Excessive sedation or RR < 8 Ondansetron HCl (Ondansetron Hcl 4 Mg/2 Ml Vial) 4 mg IVPUSH Q8H PRN PRN Reason: Nausea and Vomiting Last Admin: 12/17/20 09:20 Dose: 4 mg Documented by: Ondansetron HCl (Ondansetron Hcl 4 Mg/2 Ml Vial) 4 mg IVPUSH ONCE PRN PRN Reason: Nausea and Vomiting Pantoprazole Sodium (Pantoprazole Sodium 40 Mg/10 Ml Vial) 40 mg IVPUSH DAILY@0630 [facility] Last Admin: 12/20/20 06:26 Dose: 40 mg Documented by: Pharmacy Consult (Consult Rx Perform Med Rec) 1 each MISCELLANE ONCE PRN PRN Reason: Consult order Sodium Chloride (0.9 % Sodium Chloride Flush 3 Ml Syringe) 3 ml IVFLUSH QSHIFT [facility] Last Admin: 12/20/20 02:16 Dose: 3 ml Documented by: Sucralfate (Sucralfate Oral Suspension 1 Gm/10 Ml Oral.Susp) 1 gm PO QIDACHS [facility] Last Admin: 12/19/20 20:09 Dose: Not Given Documented by: Time Spent With Patient Time: Total time spent is greater than 50% in coordination of care (as documented) at patient's floor/unit and/or counseling patient: Time with patient: 15 - 24 minutes Quality Stroke Does the patient have a stroke diagnosis?: No VTE Prior VTE?: No VTE Risk Level:: Medical - moderate - high VTE Device Contraindication: N/A - Device Ordered VTE Drug Contraindication: Treatment Not Indicated
[2020-12-20 08:39] LABS: Hematocrit 38.8 % (37.0-47.0); Hemoglobin 12.8 g/dl (12.0-16.0); Mean Corpuscular Hemoglobin 30.4 pg (27.0-33.0); Mean Corpuscular Volume 92.2 fL (80.0-98.0); Mean Platelet Volume 9.8 fL (9.4-12.3); Platelet Count 174 X10*3/uL (160-400); Red Blood Count 4.21 X10*6/uL (4.20-5.50); Red Cell Distribution Width 12.6 % (11.0-16.0)
[2020-12-20 08:42] LABS: WBC ABN SCTR FOR CBC 1
[2020-12-20] MEDS: propofoL 1,000 MG/100 ML VIAL 9.05 MG IVCONT ×2 (08:50→15:40)
[2020-12-20 08:53] LABS: Alanine Aminotransferase 23 U/L (0-31); Albumin Level 2.6 g/dL (3.5-5.0); Alkaline Phosphatase 43 U/L (39-117); Anion Gap 14 (12-20); Aspartate Amino Transferase 14 U/L (5-31); Bilirubin Total 0.6 mg/dL (0.0-1.0); Blood Urea Nitrogen 17 mg/dL (9-16); Calcium 7.6 mg/dL (8.4-10.2); Carbon Dioxide 24 mmol/L (22-29); Chloride 104 mmol/L (96-108); Creatinine Clr Calc Pharmacy 50.7; Estimated Glomerular Filt Rate > 60; Glucose Fasting 169 mg/dL (60-99); Potassium 3.2 mmol/L (3.3-5.1); Sodium 139 mmol/L (135-145); Total Protein 4.2 g/dL (6.5-8.0)
--- NOTE | 2020-12-20 09:15 | HO.POSTANES ---
Post Anesthesia Evaluation Post Anesthesia Evaluation Vital Signs: Vital Signs Temp Pulse Resp BP Pulse Ox 12/20/20 08:00 97.2 F 104 H 22 H 104/36 L 97 12/20/20 07:00 108 H 19 89/42 L 98 12/20/20 05:59 98 20 111/42 L 96 12/20/20 04:52 95 20 100/45 L 97 12/20/20 03:43 97.2 F 98 20 97/43 L 95 12/20/20 03:17 6 L 20 115/52 L 96 12/20/20 02:00 107 H 25 H 135/45 L 98 Anesthesia: General Endotracheal-GETA Mental Status: Sedated (On ventilator receiving propofol) Pain Control: Satisfactory Nausea/Vomiting: None Hydration: Adequate Anesthesia-Related Issues: No Anes. Related Issues Comments: pt in ICU intubated on ventilator. no pressure support for BP, receiving fentanyl gtt
[2020-12-20 09:28] LABS: Acanthocytes 1+ (0-2) /OIF; Band Neutrophils Percent 40 % (3-5); Basophils Percent Manual 1 % (0-2); Lymphocytes Percent Manual 2 % (20-40); Metamyelocytes Percent 1 %; Monocytes Percent Manual 3 % (2-11); Myelocytes Percent 1 %; Neutrophils Percent Manual 52 % (45-73); RBC Morphology NORMAL
[2020-12-20 09:29] LABS: Burr Cells 3+ (>5) /OIF; Toxic Vacuolation PRESENT; WBC Morphology Comment DYSMORPHIC
[2020-12-20 09:30] LABS: Platelet Estimate NORMAL (NORMAL); Platelet Morphology Comment NORMAL
[2020-12-20 09:31] LABS: Schistocytes 1+ (0-2) /OIF
[2020-12-20 09:32] LABS: Basophils Abs Manual 0.1 X10*3/uL (0.0-0.2); Lymphocytes Absolute Manual 0.1 X10*3/uL (1.2-4.9); Metamyelocytes Absolute 0.1 X10*3/uL; Monocytes Absolute Manual 0.2 X10*3/uL (0.1-1.2); Myelocytes Absolute 0.1 X10*/uL; Neutrophils Absolute Manual 6.1 X10*3/uL (2.0-8.3); White Blood Count 6.6 X10*3/uL (4.8-10.8)
[2020-12-20 09:43] LABS: VBG Base Excess -1.1 mmol/L; VBG HCO3 25 mmol/L (22-26); VBG pCO2 46 mmHg; VBG pH 7.33 (7.32-7.43); VBG pO2 34 mmHg
[2020-12-20] MEDS: Potassium Chloride/H20 10 MEQ/100 ML PIGGYBACK 100 MEQ IV ×4 (10:36→13:47)
--- NOTE | 2020-12-20 10:36 | MHC.CLN ---
PT IS INTUBATED AND SEDATED DISCUSSED AT ROUNDS WITH MD; CENTRAL LINE TO BE PLACED PER MD DAY 3 NPO RECOMMEND TPN D15 AA5% DAY ONE AT 45ML/HR TO PROVIDE 767KCALS (1006KCALS WITH SEDATION), 54G PROTEIN REPLETE LYTES NEEDED; CHECK TRIGS SEE ALSO CLINICAL NUTRITION ASSESSMENT
[2020-12-20] MEDS: Dextrose 5 % and Lactated Ring 1,000 ML 50 ML IVCONT (10:40)
[2020-12-20] MEDS: fentaNYL citrate/PF 100 MCG/2 ML VIAL IVPUSH (10:45)
[2020-12-20] MEDS: Albumin Human 25 % 100 ML IV ×2 (10:45→12:06)
[2020-12-20 12:26] LABS: Appearance Urine CLEAR; Color Urine YELLOW; Glucose Urine UA NEG (NEG); Leukocyte Esterase Urine NEG (NEG); Nitrite Urine NEG (NEG); PH 5.5 (5.0-8.0); Specific Gravity - Urine 1.015 (1.005-1.025); UACC Culture Trigger NO; Urine Blood 1+ (NEG); Urine Ketones 40 MG/DL (NEG); Urine Protein TRACE MG/DL (NEG-TRACE)
[2020-12-20 12:38] LABS: Lactic Acid 1.1 mmol/L (0.5-2.0)
[2020-12-20 12:50] LABS: WBC Urine 0-2 /HPF (0-4)
--- NOTE | 2020-12-20 12:57 | MHC.CM.PN ---
Addendum entered by Lauren Sanchez 12/20/20 13:11: Message left for Sr. Shay at [phone] to update her on pt progress and discuss possible amendments to the d/c plan in light of her surgical intervention Original Note: Pt continues intubated in ICU after surgery on 12/19 to urgently repair a hernia: ? aspiration. Pt resides at the [facility]. No plans to extubate today: Original d/c plan was for a return home with communal support and assistance from HCP Sister Laurita Stellagrover Friend. CM to call Sr. Shay to update on pt progress and d/c plans
[2020-12-20 13:34] LABS: Venous Blood Gas Refer to POC result
[2020-12-20] MEDS: fentaNYL citrate/NS 1,000 MCG/100 ML PLAST..BAG 3 MCG IVCONT (15:39)
[2020-12-20] MEDS: Sodium Phosphate,Mono-Dibasic 133 ML ENEMA PR (20:18)
[2020-12-20] MEDS: Chlorhexidine Gluc Oral Rinse 15 ML MOUTHWASH BUCCAL (21:44)
--- NOTE | 2020-12-20 23:22 | PM.CCPN ---
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.? 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 She has a no significant past medical history, although she reported taking ibuprofen twice a day for many years for arthritic pain. ?She also previously had a femoral hernia repair.? The patient is known to have DNR/DNI status.? Her healthcare proxy is one of the other sisters. The patient presented to the ED ambulatory on December 15 complaining of coffee-ground emesis for the prior 3 days.? There was no diarrhea and mild epigastric pain.? Vital signs in the ED were unremarkable, although the patient was in atrial fibrillation with a controlled rate.? Physical exam including the abdominal exam were unremarkable.? Labs were notable for a leukocytosis, mild acute kidney injury, and moderate hyponatremia.? The hemoglobin was 13.7. On December 17, the patient underwent EGD which showed he 3 cm sliding hiatal hernia, and severe esophagitis.? There was 1.5 L of fluid that was suctioned out of the stomach.? The duodenum also showed severe scattered ulcerative duodenitis.? She was treated with PPI. The patient had persistent pain with p.o. intake.? On December 19, the patient underwent a CT scan of the abdomen which showed a high-grade distal small-bowel obstruction secondary to what looks like a short segment of small bowel within a right inguinal hernia.? The patient was seen urgently by Dr. Rice.? The bowel is felt to be compromised.? Plan was made to take her to the OR.? Preoperative placement of an NG tube was attempted but was unable. At operation, the patient vomited on induction of anesthesia.? The patient was intubated successfully, and 1200 cc was sucked out of the abdomen. At surgical exploration, the patient was found to have a right femoral hernia with previously placed mesh.? The mesh was removed.? The patient underwent resection of a 15 centimetre length of small-bowel, with [id number] primary anastomosis, which was then covered with peritoneum.? Mesh was used to close the femoral hernia.? At the end of the operation early this morning, the patient was transferred to the ICU, still intubated and sedated.? Postop chest x-ray showed patchy bilateral airspace consolidations, very consistent with aspiration. During the day today, I placed a central venous line.? During ultrasound for the line placement, it was noted that the patient had marked inspiratory venous collapse.? On placement of the central venous line, CVP was noted to be about 2 cm. ?We gave her 200 cc of 25% albumin.? Measured lactic acid was 1.1. ?Blood cultures were drawn, and echo was done later in the evening (see below). ?Later in the day, we were able to get the FiO2 down to 40%.? The patient is lightly sedated and easily arousable.? We kept her intubated because her respiratory rate and minute volume were elevated. Bedside ECHOCARDIOGRAM done by me:? Image quality:? Good.? Findings: 1. LV wall thickness probably normal. 2. Normal LV function, with no regional wall motion abnormalities.? Ejection fraction probably about 50%. 3. RV size and function normal. 4. Atria not assessed. 5. Aortic valve trileaflet with no significant AI or . 6. Mitral valve morphology normal with no significant MR by color-tam. 7. Tricuspid valve morphology normal with 1+TR by color-tam, and CWD measuring 2.0 m/sec, or gradient of 16cm. 8. IVC measured about 1.7 cm, with maybe 20% inspiratory collapse.? Estimated CVP 8-10 mm. ??Estimated RVSP 24-26mm. IMPRESSION: 1. Complete small bowel obstruction secondary to incarcerated femoral hernia.? Status postoperative repair. 2. Status post aspiration on induction of anesthesia, resulting in aspiration pneumonia. ?The post line placement chest x-ray shows considerable improvement in the airspace consolidations.? Given that and our ability to get the FiO2 down, I am hopeful that extubation might be possible tomorrow. 3. Hypotension.? Not floridly septic.? She?s on Zosyn, which is as good as any other antibiotic for aspiration pneumonia.? Echo indicates that further fluids are contraindicated.? We?ll start her on pressors if necessary. I discussed the patient's situation at length with her healthcare proxy. Critical care time (including full chart review and hospital course summary; excluding procedures):? 90+ minutes. Critical Care Time (minutes): 90 Physical Exam Vital Signs: Vital Signs: Last Vital Signs Temp 98.5 F 12/20/20 23:00 Pulse 102 H 12/20/20 23:00 Resp 19 12/20/20 23:00 BP 92/37 L 12/20/20 23:00 Pulse Ox 95 12/20/20 23:00 Body Mass Index 26.8 Objective Data Labs CBC & Chem 7: 12/20/20 08:11 12/20/20 08:11 Labs: Laboratory Results - last 24 hr 12/20/20 12/20/20 12/20/20 01:48 01:48 02:15 WBC 3.6 L RBC 4.18 L Hgb 12.8 Hct 39.2 MCV 93.8 MCH 30.6 MCHC 32.7 RDW 12.5 Plt Count 203 MPV 9.4 Immature Gran % (Auto) 1.1 H Neut % (Auto) 81.7 H Lymph % (Auto) 8.2 L Emanuel % (Auto) 7.3 Eos % (Auto) 1.4 Baso % (Auto) 0.3 Lymph # (Auto) 0.3 L Emanuel # (Auto) 0.3 Eos # (Auto) 0.1 Baso # (Auto) 0.0 Abs Immat Gran (auto) 0.04 H Absolute Neuts (auto) 2.9 Absolute Nucleated RBC 0.000 Nucleated RBC % (auto) 0.0 Neutrophils % (Manual) Band Neutrophils % Lymphocytes % (Manual) Monocytes % (Manual) Basophils % (Manual) Metamyelocytes % Myelocytes % Abs Neuts (Manual) Lymphocytes # (Manual) Monocytes # (Manual) Basophils # (Manual) Metamyelocytes # Myelocytes # Toxic Vacuolation WBC Morphology Comment Platelet Estimate Plt Morphology Comment RBC Morphology Shayne Cells Acanthocytes (Spur) Schistocytes O2 Saturation 96.0 ABG pH at Pt Temp 7.24 L ABG pH (Temp Correct) 7.25 L ABG pCO2 at Pt Temp 48 H ABG pCO2 (Temp Corrct 47 H ABG pO2 at Pt Temp 86 ABG pO2 (Temp Correct 83 ABG HCO3 21 L ABG Base Excess (Actual) -6.0 VBG pH VBG pCO2 VBG pO2 VBG HCO3 VBG O2 Saturation VBG Base Excess Sodium 140 Potassium 3.2 L Chloride 106 Carbon Dioxide 20 L Anion Gap 17 BUN 16 Creatinine 0.75 Estim Creat Clear Calc 56.9 Estimated GFR > 60 Random Glucose 118 H Fasting Glucose Lactic Acid Calcium 7.5 L D Phosphorus 3.7 Magnesium 1.7 Total Bilirubin 0.6 AST 15 ALT 22 Alkaline Phosphatase 44 Total Protein 4.3 L Albumin 2.7 L Urine Color Urine Appearance Urine pH Ur Specific [place] Urine Protein Urine Glucose (UA) Urine Ketones Urine Blood Urine Nitrite Ur Leukocyte Esterase Urine RBC Urine WBC Ur Squamous Epith Cells Urine Bacteria 12/20/20 12/20/20 12/20/20 08:11 08:11 08:17 WBC 6.6 RBC 4.21 Hgb 12.8 Hct 38.8 MCV 92.2 MCH 30.4 MCHC 33.0 RDW 12.6 Plt Count 174 MPV 9.8 Immature Gran % (Auto) Cancelled Neut % (Auto) Cancelled Lymph % (Auto) Cancelled Emanuel % (Auto) Cancelled Eos % (Auto) Cancelled Baso % (Auto) Cancelled Lymph # (Auto) Cancelled Emanuel # (Auto) Cancelled Eos # (Auto) Cancelled Baso # (Auto) Cancelled Abs Immat Gran (auto) Cancelled Absolute Neuts (auto) Cancelled Absolute Nucleated RBC 0.000 Nucleated RBC % (auto) 0.0 Neutrophils % (Manual) 52 Band Neutrophils % 40 H Lymphocytes % (Manual) 2 L Monocytes % (Manual) 3 Basophils % (Manual) 1 Metamyelocytes % 1 Myelocytes % 1 Abs Neuts (Manual) 6.1 Lymphocytes # (Manual) 0.1 L Monocytes # (Manual) 0.2 Basophils # (Manual) 0.1 Metamyelocytes # 0.1 Myelocytes # 0.1 Toxic Vacuolation PRESENT WBC Morphology Comment DYSMORPHIC Platelet Estimate NORMAL Plt Morphology Comment NORMAL RBC Morphology NORMAL Shayne Cells 3+ (>5) Acanthocytes (Spur) 1+ (0-2) Schistocytes 1+ (0-2) O2 Saturation ABG pH at Pt Temp ABG pH (Temp Correct) ABG pCO2 at Pt Temp ABG pCO2 (Temp Corrct ABG pO2 at Pt Temp ABG pO2 (Temp Correct ABG HCO3 ABG Base Excess (Actual) VBG pH 7.33 VBG pCO2 46 VBG pO2 34 VBG HCO3 25 VBG O2 Saturation 59.0 VBG Base Excess -1.1 Sodium 139 Potassium 3.2 L Chloride 104 Carbon Dioxide 24 Anion Gap 14 BUN 17 H Creatinine 0.84 Estim Creat Clear Calc 50.7 Estimated GFR > 60 Random Glucose Fasting Glucose 169 H Lactic Acid Calcium 7.6 L Phosphorus Magnesium Total Bilirubin 0.6 AST 14 ALT 23 Alkaline Phosphatase 43 Total Protein 4.2 L Albumin 2.6 L Urine Color Urine Appearance Urine pH Ur Specific [place] Urine Protein Urine Glucose (UA) Urine Ketones Urine Blood Urine Nitrite Ur Leukocyte Esterase Urine RBC Urine WBC Ur Squamous Epith Cells Urine Bacteria 12/20/20 12/20/20 12:15 12:18 WBC RBC Hgb Hct MCV MCH MCHC RDW Plt Count MPV Immature Gran % (Auto) Neut % (Auto) Lymph % (Auto) Emanuel % (Auto) Eos % (Auto) Baso % (Auto) Lymph # (Auto) Emanuel # (Auto) Eos # (Auto) Baso # (Auto) Abs Immat Gran (auto) Absolute Neuts (auto) Absolute Nucleated RBC Nucleated RBC % (auto) Neutrophils % (Manual) Band Neutrophils % Lymphocytes % (Manual) Monocytes % (Manual) Basophils % (Manual) Metamyelocytes % Myelocytes % Abs Neuts (Manual) Lymphocytes # (Manual) Monocytes # (Manual) Basophils # (Manual) Metamyelocytes # Myelocytes # Toxic Vacuolation WBC Morphology Comment Platelet Estimate Plt Morphology Comment RBC Morphology [place] Cells Acanthocytes (Spur) Schistocytes O2 Saturation ABG pH at Pt Temp ABG pH (Temp Correct) ABG pCO2 at Pt Temp ABG pCO2 (Temp Corrct ABG pO2 at Pt Temp ABG pO2 (Temp Correct ABG HCO3 ABG Base Excess (Actual) VBG pH VBG pCO2 VBG pO2 VBG HCO3 VBG O2 Saturation VBG Base Excess Sodium Potassium Chloride Carbon Dioxide Anion Gap BUN Creatinine Estim Creat Clear Calc Estimated GFR Random Glucose Fasting Glucose Lactic Acid 1.1 Calcium Phosphorus Magnesium Total Bilirubin AST ALT Alkaline Phosphatase Total Protein Albumin Urine Color YELLOW Urine Appearance CLEAR Urine pH 5.5 Ur Specific [place] 1.015 Urine Protein TRACE Urine Glucose (UA) NEG Urine Ketones 40 Urine Blood 1+ H Urine Nitrite NEG Ur Leukocyte Esterase NEG Urine RBC 5-9 H Urine WBC 0-2 Ur Squamous Epith Cells NONE Urine Bacteria NONE Quality Stroke Does the patient have a stroke diagnosis?: No VTE Prior VTE?: No VTE Risk Level:: Medical - moderate - high VTE Device Contraindication: N/A - Device Ordered VTE Drug Contraindication: Treatment Not Indicated Critical Care Time Critical Care Time (minutes): 90
--- NOTE | 2020-12-20 23:51 | W.PM.CCHP ---
Procedures Date of Service Date of Service: 12/20/20 Central Line Placement Left SC: Central Line Comments: PROCEDURE:? Insertion left subclavian central venous line. INDICATION:? Pneumonia with acute respiratory failure:? IV access; blood draws; resp monitoring. ANESTHESIA:? Local plus IV sedation. PROCEDURE:? Vascular ultrasound was used to examine the left side.? A large compressible infraclavic left subclavian vein was noted.? No good vein was seen in the supraclavicular or internal jugular positions.? The left subclavian and left neck areas were widely prepped and draped in full sterile fashion.?? The infraclavic subclavian vein was located by US.? Local anesthesia was applied to the entrance site with the US probe oriented longitudinally.? The infraclavic left subclavian vein was cannulated on the 2nd pass of the 18 gauge thin wall under direct US guidance.? The wire was threaded without incident.? A 7 [place] by 16 cm triple-lumen catheter was advanced into the vein up to the hub via the Seldinger technique without incident.? There was good blood return x3.? The catheter was sutured x3 and a Biopatch and dry sterile dressing were applied. Postop chest x-ray showed the line in perfect position with no pneumothorax.? The patient tolerated the procedure well w no complications. Consent for Procedure: Elective - informed consent obtained
[2020-12-21] VITALS (45 sets, daily range): BP systolic 90–128; BP diastolic 36–71; PULSE 98–145; RESP 18–39; TEMP 36.4–37.1; O2SAT 87–100
--- NOTE | 2020-12-21 | ECG_ITS ---
Test Reason : rhythm change Blood Pressure : / mmHG Vent. Rate : 147 BPM Atrial Rate : 000 BPM P-R Int : 000 ms QRS Dur : 094 ms QT Int : 286 ms P-R-T Axes : 000 136 250 degrees QTc Int : 447 ms Suspect limb lead reversal, interpretation assumes no reversal Atrial fibrillation with rapid ventricular response with premature ventricular or aberrantly conducted complexes Lateral infarct , age undetermined ST & T wave abnormality, consider inferior ischemia Abnormal ECG When compared with ECG of 18-DEC-2020 09:38, Significant changes have occurred Referred By: Ariana Mc Electronically Signed By:
[2020-12-21] MEDS: 0.9 % Sodium Chloride Flush 3 ML SYRINGE IVFLUSH ×3 (00:28→15:27)
[2020-12-21] MEDS: propofoL 1,000 MG/100 ML VIAL 9.05 MG IVCONT ×2 (00:29→08:40)
[2020-12-21 06:02] LABS: Hematocrit 31.5 % (37.0-47.0); Hemoglobin 10.5 g/dl (12.0-16.0); Mean Corpuscular HGB Conc 33.3 g/dl (31.0-35.0); Mean Corpuscular Hemoglobin 30.6 pg (27.0-33.0); Mean Corpuscular Volume 91.8 fL (80.0-98.0); Mean Platelet Volume 9.6 fL (9.4-12.3); Platelet Count 206 X10*3/uL (160-400); Red Blood Count 3.43 X10*6/uL (4.20-5.50); Red Cell Distribution Width 12.9 % (11.0-16.0)
[2020-12-21 06:06] LABS: WBC ABN SCTR FOR CBC 1; White Blood Count 21.3 X10*3/uL (4.8-10.8)
[2020-12-21] MEDS: Piperacillin Sodium/Tazobactam 3.375 GM in 0.9 % Sodium Chloride 50 ML IV ×4 (06:17→17:31)
[2020-12-21] MEDS: Dextrose 5 % and Lactated Ring 1,000 ML 50 ML IVCONT (06:17)
[2020-12-21] MEDS: Pantoprazole Sodium 40 MG/10 ML VIAL IVPUSH (06:17)
[2020-12-21 06:20] LABS: Alanine Aminotransferase 18 U/L (0-31); Alkaline Phosphatase 43 U/L (39-117); Anion Gap 11 (12-20); Aspartate Amino Transferase 11 U/L (5-31); Bilirubin Total 0.4 mg/dL (0.0-1.0); Blood Urea Nitrogen 17 mg/dL (9-16); Carbon Dioxide 26 mmol/L (22-29); Chloride 106 mmol/L (96-108); Creatinine Clr Calc Pharmacy 59.2; Estimated Glomerular Filt Rate > 60; Glucose Fasting 247 mg/dL (60-99); Potassium 3.7 mmol/L (3.3-5.1); Sodium 139 mmol/L (135-145); Total Protein 4.4 g/dL (6.5-8.0)
[2020-12-21 06:34] LABS: Band Neutrophils Percent 52 % (3-5); Lymphocytes Absolute Manual 1.1 X10*3/uL (1.2-4.9); Lymphocytes Percent Manual 5 % (20-40); Metamyelocytes Absolute 0.2 X10*3/uL; Metamyelocytes Percent 1 %; Monocytes Absolute Manual 0.6 X10*3/uL (0.1-1.2); Monocytes Percent Manual 3 % (2-11); Neutrophils Absolute Manual 19.4 X10*3/uL (2.0-8.3); Neutrophils Percent Manual 39 % (45-73)
--- NOTE | 2020-12-21 06:34 | PC.NURSE ---
Patient given fleet enema in evening r/t no BM - Only clear return of fluid - no stool. Dr Oates made aware of no stool from patient. Patient continuing on TPN.
[2020-12-21 06:35] LABS: Burr Cells 2+ (3-5) /OIF; Platelet Estimate NORMAL (NORMAL); Platelet Morphology Comment NORMAL; RBC Morphology NOTED
--- NOTE | 2020-12-21 06:37 | PC.NURSE ---
Addendum entered by Sonny Mane, RN 12/21/20 06:58: advanced NG tube 2 - [address] Lashon rienoso/ Caridad WILSON at bedside. Original Note: Shift eval 7p-7a: Patient abd dressing remains intact - no staining noted. Patient BP trending down - levo ordered and started - urine output improved with better BP's. Patient arousable - nodded when asked about pain, increased fentanyl drip small amt (see MAR titration). Patient able to squeeze hands when asked. Tolerating vent settings. Reposition Q2H.
--- NOTE | 2020-12-21 07:30 | P.PNGS_ITS ---
Subjective Subjective Date of Service: 12/21/20 Interval history: Remains intubated No events overnight Not on pressors Physical Exam Vital Signs: Vital Signs: Last Vital Signs Temp 98.5 F 12/21/20 06:00 Pulse 110 H 12/21/20 07:00 Resp 21 H 12/21/20 07:00 BP 107/50 L 12/21/20 07:00 Pulse Ox 95 12/21/20 07:00 Body Mass Index 26.8 Chemistry 12/19/20 12/20/20 12/20/20 06:25 01:48 08:11 Sodium 140 140 139 Potassium 3.3 3.2 L 3.2 L Carbon Dioxide 22 20 L 24 BUN 21 H 16 17 H Creatinine 0.67 0.75 0.84 Calcium 8.0 L 7.5 L D 7.6 L Phosphorus 3.7 12/21/20 05:45 Sodium 139 Potassium 3.7 Carbon Dioxide 26 BUN 17 H Creatinine 0.72 Calcium 8.0 L Phosphorus Hematology 12/19/20 12/20/20 12/20/20 06:25 01:48 08:11 WBC 7.0 3.6 L 6.6 Hgb 11.5 L 12.8 12.8 Plt Count 208 203 174 12/21/20 05:45 WBC 21.3 H Hgb 10.5 L Plt Count 206 Urinalysis 12/20/20 12:18 Urine Color YELLOW Urine Appearance CLEAR Urine pH 5.5 Ur Specific Gravit y 1.015 Urine Protein TRACE Urine Glucose (UA) NEG Urine Ketones 40 Urine Blood 1+ H Urine Nitrite NEG Ur Leukocyte Adelina ase NEG Urine RBC 5-9 H Urine WBC 0-2 Ur Squamous Epith Cells NONE Const: Other: On ventilator, sedated Resp: Other: On ventilator Cardio: Rate: tachycardic GI: Other: Dressings dry Inspection: No distended Palpation (GI): Soft to palpation and no guarding Procedures Date of Service Date of Service: 12/21/20 Progress Note: A&P Assessment and plan (1) Incarcerated right inguinal hernia: Status: Acute Assessment and Plan: Status post repair and reduction, with small-bowel resection Still on the ventilator Abdomen soft, nondistended White count up today Hopefully shecan be weaned off the vent today Being treated for possible aspiration pneumonitis Good urine output Care as per ICU Fall Risk Details Current Medications: Current Medications Acetaminophen (Acetaminophen 325 Mg Tablet) 650 mg PO Q6H PRN PRN Reason: Pain, Mild (Pain Scale 1-3) Last Admin: 12/16/20 04:49 Dose: 650 mg Documented by: Albuterol/Ipratropium (Albuterol/Iprat 2.5/0.5mg 3 Ml Ampul.Neb) 3 ml INHALE RQ6H PRN PRN Reason: Wheezing Chlorhexidine Gluconate (Chlorhexidine Gluc Oral Rinse 15 Ml Mouthwash) 15 ml BUCCAL TID [facility] Last Admin: 12/20/20 21:44 Dose: 15 ml Documented by: Docusate Sodium (Docusate Sodium 100 Mg Capsule) 100 mg PO DAILY PRN PRN Reason: Constipation Fentanyl (Fentanyl Citrate/Pf 100 Mcg/2 Ml Vial) 100 mcg IVPUSH Q5M PRN; Protocol PRN Reason: wob Last Admin: 12/20/20 10:45 Dose: 100 mcg Documented by: Propofol (Diprivan) 1,000 mg in 100 mls @ 0 mls/hr IVCONT .Q0M [facility]; Protocol Last Admin: 12/21/20 00:29 Dose: 20 mcg/kg/min, 9.05 mls/hr Documented by: Fentanyl (Sublimaze/Ns) 1,000 mcg in 100 mls @ 0 mls/hr IVCONT .Q0M [facility]; Protocol Last Titration: 12/20/20 20:27 Dose: 40 mcg/hr, 4 mls/hr Documented by: Piperacillin Sod/Tazobactam (Sod 3.375 gm/ Sodium Chloride) 50 mls @ 100 mls/hr IV Q6H [facility] Last Infusion: 12/21/20 06:51 Dose: Infused Documented by: Dextrose/Lactated Ringer's (D5lr) 1,000 mls @ 50 mls/hr IVCONT .Q20H [facility] Last Admin: 12/21/20 06:17 Dose: 50 mls/hr Documented by: Potassium Chloride 30 meq/Magnesium Sulfate 5 meq/Potassium Phosphate 15 mmol/Calcium Gluconate 4.5 meq/Multivitamins 10 ml/ Trace Metals 1 ml/ Amino Acids/Dextrose 1,041.9274 mls @ 45 mls/hr IVCONT DAILY@1800 [facility] Stop: 12/21/20 17:10 Last Admin: 12/20/20 18:14 Dose: 45 mls/hr Documented by: Norepinephrine Bitartrate (Levophed) 8 mg in 250 mls @ 0 mls/hr IVCONT .Q0M [facility]; Protocol Last Titration: 12/21/20 00:56 Dose: 0.06 mcg/kg/min, 8.48 mls/hr Documented by: Naloxone HCl (Naloxone Hcl 0.4 Mg/Ml Vial) 0.2 mg IVPUSH Q2M PRN PRN Reason: Excessive sedation or RR < 8 Ondansetron HCl (Ondansetron Hcl 4 Mg/2 Ml Vial) 4 mg IVPUSH Q8H PRN PRN Reason: Nausea and Vomiting Last Admin: 12/17/20 09:20 Dose: 4 mg Documented by: Ondansetron HCl (Ondansetron Hcl 4 Mg/2 Ml Vial) 4 mg IVPUSH ONCE PRN PRN Reason: Nausea and Vomiting Pantoprazole Sodium (Pantoprazole Sodium 40 Mg/10 Ml Vial) 40 mg IVPUSH DAILY@0630 [facility] Last Admin: 12/21/20 06:17 Dose: 40 mg Documented by: Pharmacy Consult (Consult Rx Perform Med Rec) 1 each MISCELLANE ONCE PRN PRN Reason: Consult order Sodium Biphosphate/Sodium Phosphate (Sodium Phosphate,[place]-Dibasic 133 Ml Enema) 133 ml [place] ONCE PRN PRN Reason: Constipation Last Admin: 12/20/20 20:18 Dose: 133 ml Documented by: Sodium Chloride (0.9 % Sodium Chloride Flush 3 Ml Syringe) 3 ml IVFLUSH QSHIFT [facility] Last Admin: 12/21/20 00:28 Dose: 3 ml Documented by: Sucralfate (Sucralfate Oral Suspension 1 Gm/10 Ml Oral.Susp) 1 gm PO QIDACHS [facility] Last Admin: 12/20/20 20:26 Dose: Not Given Documented by: Time Spent With Patient Time: Total time spent is greater than 50% in coordination of care (as documented) at patient's floor/unit and/or counseling patient: Time with patient: 15 - 24 minutes Quality Stroke Does the patient have a stroke diagnosis?: No VTE Prior VTE?: No VTE Risk Level:: Medical - moderate - high VTE Device Contraindication: N/A - Device Ordered VTE Drug Contraindication: Treatment Not Indicated
[2020-12-21] MEDS: Chlorhexidine Gluc Oral Rinse 15 ML MOUTHWASH BUCCAL (07:55)
[2020-12-21 08:15] LABS: Anion Gap 13 (12-20); Blood Urea Nitrogen 18 mg/dL (9-16); Calcium 7.9 mg/dL (8.4-10.2); Carbon Dioxide 23 mmol/L (22-29); Chloride 107 mmol/L (96-108); Creatinine Clr Calc Pharmacy 61.8; Estimated Glomerular Filt Rate > 60; Glucose Random 236 mg/dL (60-115); Potassium 3.7 mmol/L (3.3-5.1); Sodium 139 mmol/L (135-145)
[2020-12-21 10:07] LABS: Magnesium 1.7 mg/dL (1.6-2.6); Triglycerides 73 mg/dL
[2020-12-21 10:08] LABS: VBG Base Excess 2.7 mmol/L; VBG HCO3 27 mmol/L (22-26); VBG pCO2 43 mmHg; VBG pO2 55 mmHg
[2020-12-21] MEDS: fentaNYL citrate/PF 100 MCG/2 ML VIAL IVPUSH (10:15)
--- NOTE | 2020-12-21 11:09 | P.PNCC_ITS ---
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.? 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 She has a no significant past medical history, although she reported taking ibuprofen twice a day for many years for arthritic pain. ?She also previously had a femoral hernia repair.? The patient is known to have DNR/DNI status.? Her healthcare proxy is one of the other sisters. The patient presented to the ED ambulatory on December 15 complaining of coffee-ground emesis for the prior 3 days.? There was no diarrhea and mild epigastric pain.? Vital signs in the ED were unremarkable, although the patient was in atrial fibrillation with a controlled rate.? Physical exam including the abdominal exam were unremarkable.? Labs were notable for a leukocytosis, mild acute kidney injury, and moderate hyponatremia.? The hemoglobin was 13.7. On December 17, the patient underwent EGD which showed he 3 cm sliding hiatal hernia, and severe esophagitis.? There was 1.5 L of fluid that was suctioned out of the stomach.? The duodenum also showed severe scattered ulcerative duodenitis.? She was treated with PPI. The patient had persistent pain with po intake.? On December 19, the patient underwent a CT scan of the abdomen which showed a high-grade distal small-bowel obstruction secondary to what looks like a short segment of small bowel within a right inguinal hernia.? The patient was seen urgently by Dr. Rice.? The bowel is felt to be compromised.? Plan was made to take her to the OR.? P reoperative placement of an NG tube was attempted but was unable. At operation, the patient vomited on induction of anesthesia.? The patient was intubated successfully, and 1200 cc was sucked out of the abdomen.? At surgical exploration, the patient was found to have a right femoral hernia with previously placed mesh.? The mesh was removed.? The patient underwent resection of a 15 cm length of small-bowel, with htvm-by-jmun primary anastomosis, which was then covered with peritoneum.? Mesh was used to close the femoral hernia.? At the end of the operation early yesterday morning, the patient was transferred to the ICU, still intubated and sedated.? Postop chest x-ray showed patchy bilateral airspace consolidations, very consistent with aspiration. A central venous line was placed.? During ultrasound for the line placement, it was noted that the patient had marked inspiratory venous collapse.? On placement of the central venous line, CVP was noted to be about 2 cm.? She was felt to be hypovolemic. ?We gave her 200 cc of 25% albumin.? Measured lactic acid was 1.1.? Blood cultures were drawn, and echo was done later in the evening (see below).? Later in the day, we were able to get the FiO2 down to 40%.? The patient was lightly sedated and easily arousable.? We kept her intubated because her respiratory rate and minute volume were elevated. Bedside ECHOCARDIOGRAM was notable for: 1. Normal LV function.? Ejection fraction at least 50%. 2. RV size and function normal. 3. 1+TR by color-tam, with CWD measuring 2.0 m/sec, or gradient of 16cm. 4. IVC measured about 1.7 cm, with maybe 20% inspiratory collapse.? Estimated CVP 8-10 mm.?? Estimated RVSP 24-26mm. She did well overnight last night.? Was easily arousable this morning.? We turned the propofol off, kept the fentanyl infusion going and switched her over to pressure support ventilation..? With the propofol off, her respiratory rate tatianna to 28, minute volume tatianna to 12. We bolused her with fentanyl and upped the fentanyl infusion rate to 75 mcg.? That slowed her respiratory rate down into the teens and dropped minute volume. ?On PSV 5/40%/+8, respiratory rate was about 18, tidal volumes above 400 cc.? It took 30-45 minutes for her to fully wake up after the propofol was turned off, following which she was easily extub ated.? She has done fairly well throughout the day, with RR mid 20?s on HFNC 40L/40%, no access musc use, and Sat 93-94%.? She?s been taking ice chips with no problem.? She is easily arousable, appropriately responsive, oriented to person and place. This evening, HR is 106, BP 113/50 on Levophed 0.04ug.? RR is 28 on the high flow, rapid shallow, w no paradox, no access musc use.? She has been afebrile her entire hospital stay. ?Chest shows light crackles about 1/3 up.? RRR, no murmur or gallops appreciated.? Abdomen is nondistended.? Bowel sounds are slightly hypoactive. ?NG output for the day shift today was minimal. ?She has mild-moderate diffuse tenderness, with no guarding or rebound.? She has mild edema. LABORATORY DATA:? As below.? Notably, white count up to 21 this morning, as expected.? Hemoglobin down to 10.5 after volume resuscitation.? Renal indices remain low, random glucose is 236, on the TPN. MICROBIOLOGY:? Sputum Gram stain from yesterday showed 4+ polys, 2+ g positive rods, 1+ Gram-positive cocci, consistent with aspiration. IMPRESSION: 1. Complete small bowel obstruction secondary to incarcerated femoral hernia.? Status postoperative repair. 2. Status post aspiration on induction of anesthesia, resulting in aspiration pneumonia and acute respiratory failure.? Currently doing significantly better than anticipated, all things considered.? But definitely not out of the renteria -- from either a medical or surgical point of view. 3. Acute respiratory failure.? Opiates for work of breathing.? Waiting till I can diurese her. 4. Hypotension.? Looks more very frail than toxic, hayden with her mental status so good.? Certainly not floridly septic.? She?s on Zosyn, which is as good as any other antibiotic for aspiration pneumonia.? Echo indicated that further fluids were contraindicated, so I?m willing to have her continue on low dose pressor rather than flood her w fluids.? Hayden given her resp status, I?d very much like to diurese her, but we?ll hold off till tomorrow. 5. Probably moderate protein calorie malnutrition.? Continuing TPN for now.? We might be able to start NG feeds tomorrow. Prognosis is guarded. Critical care time:? 70+ minutes. Critical Care Time (minutes): 70 Physical Exam Vital Signs: Vital Signs: Last Vital Signs Temp 98.2 F 12/21/20 08:00 Pulse 101 H 12/21/20 10:00 Resp 25 H 12/21/20 10:15 BP 112/38 L 12/21/20 10:00 Pulse Ox 99 12/21/20 10:00 Body Mass Index 26.8 Objective Data Labs CBC & Chem 7: 12/21/20 05:45 12/21/20 07:52 Labs: Laboratory Results - last 24 hr 12/20/20 12/20/20 12/21/20 12:15 12:18 05:45 WBC 21.3 H RBC 3.43 L Hgb 10.5 L Hct 31.5 L MCV 91.8 MCH 30.6 MCHC 33.3 RDW 12.9 Plt Count 206 MPV 9.6 Immature Gran % (Auto) Cancelled Neut % (Auto) Cancelled Lymph % (Auto) Cancelled [place] % (Auto) Cancelled Eos % (Auto) Cancelled Baso % (Auto) Cancelled Lymph # (Auto) Cancelled [place] # (Auto) Cancelled Eos # (Auto) Cancelled Baso # (Auto) Cancelled Abs Immat Gran (auto) Cancelled Absolute Neuts (auto) Cancelled Absolute Nucleated RBC 0.000 Nucleated RBC % (auto) 0.0 Neutrophils % (Manual) 39 L Band Neutrophils % 52 H Lymphocytes % (Manual) 5 L Monocytes % (Manual) 3 Metamyelocytes % 1 Abs Neuts (Manual) 19.4 H Lymphocytes # (Manual) 1.1 L Monocytes # (Manual) 0.6 Metamyelocytes # 0.2 Platelet Estimate NORMAL Plt Morphology Comment NORMAL RBC Morphology NOTED [place] Cells 2+ (3-5) VBG pH VBG pCO2 VBG pO2 VBG HCO3 VBG O2 Saturation VBG Base Excess Sodium Potassium Chloride Carbon Dioxide Anion Gap BUN Creatinine Estim Creat Clear Calc Estimated GFR Random Glucose Fasting Glucose Lactic Acid 1.1 Calcium Phosphorus Magnesium Total Bilirubin AST ALT Alkaline Phosphatase Total Protein Albumin Triglycerides Urine Color YELLOW Urine Appearance CLEAR Urine pH 5.5 Ur Specific [place] 1.015 Urine Protein TRACE Urine Glucose (UA) NEG Urine Ketones 40 Urine Blood 1+ H Urine Nitrite NEG Ur Leukocyte Esterase NEG Urine RBC 5-9 H Urine WBC 0-2 Ur Squamous Epith Cells NONE Urine Bacteria NONE 12/21/20 12/21/20 12/21/20 05:45 07:52 10:01 WBC RBC Hgb Hct MCV MCH MCHC RDW Plt Count MPV Immature Gran % (Auto) Neut % (Auto) Lymph % (Auto) [place] % (Auto) Eos % (Auto) Baso % (Auto) Lymph # (Auto) [place] # (Auto) Eos # (Auto) Baso # (Auto) Abs Immat Gran (auto) Absolute Neuts (auto) Absolute Nucleated RBC Nucleated RBC % (auto) Neutrophils % (Manual) Band Neutrophils % Lymphocytes % (Manual) Monocytes % (Manual) Metamyelocytes % Abs Neuts (Manual) Lymphocytes # (Manual) Monocytes # (Manual) Metamyelocytes # Platelet Estimate Plt Morphology Comment RBC Morphology [place] Cells VBG pH 7.40 VBG pCO2 43 VBG pO2 55 VBG HCO3 27 H VBG O2 Saturation 87.0 VBG Base Excess 2.7 Sodium 139 139 Potassium 3.7 3.7 Chloride 106 107 Carbon Dioxide 26 23 Anion Gap 11 L 13 BUN 17 H 18 H Creatinine 0.72 0.69 Estim Creat Clear Calc 59.2 61.8 Estimated GFR > 60 > 60 Random Glucose 236 H Fasting Glucose 247 H Lactic Acid Calcium 8.0 L 7.9 L Phosphorus 2.0 L Magnesium 1.7 Total Bilirubin 0.4 AST 11 ALT 18 Alkaline Phosphatase 43 Total Protein 4.4 L Albumin 3.0 L Triglycerides 73 Urine Color Urine Appearance Urine pH Ur Specific [place] Urine Protein Urine Glucose (UA) Urine Ketones Urine Blood Urine Nitrite Ur Leukocyte Esterase Urine RBC Urine WBC Ur Squamous Epith Cells Urine Bacteria Microbiology Microbiology Results: Microbiology 12/20/20 12:18 Sputum - Suctioned Gram Stain - Final 12/20/20 12:18 Sputum - Suctioned Sputum Culture - Preliminary Culture in progress. Quality Stroke Does the patient have a stroke diagnosis?: No VTE Prior VTE?: No VTE Risk Level:: Medical - moderate - high VTE Device Contraindication: N/A - Device Ordered VTE Drug Contraindication: Treatment Not Indicated Critical Care Time Critical Care Time (minutes): 60
--- NOTE | 2020-12-21 11:10 | MHC.CLN ---
Addendum entered by Aimee Bradley, GABINO 12/21/20 13:08: agree with provider's assessment below Original Note: F/U PT IS INTUBATED AND SEDATED PT IS RECEIVING TPN D15 AA5% AT 45ML/HR TO PROVIDE 767KCALS (1176 KCALS WITH SEDATION AND D5LR), 54G PROTEIN RECOMMEND INCREASING TPN D15 AA25% TO 65 ML/HOUR WITH 20% LIPIDS AT 16 ML/HOUR TO PROVIDE 1492 KCALS (1901 KCALS WITH SEDATION AND D5LR), 78 GRAMS PROTEIN MONITOR LYTES; CHECK TRIGS
--- NOTE | 2020-12-21 15:39 | MHC.CM.PN ---
Pt has been extubated: d/c plans will need to be finalized: likely STR based on pts age/comorbid conditions and high care needs following d/c. Message left for pt's HCP, SR Laurita Friend to discuss options.
[2020-12-21] MEDS: fentaNYL citrate/NS 1,000 MCG/100 ML PLAST..BAG 5 MCG IVCONT (16:11)
[2020-12-21] MEDS: Fat Emulsions 20% 250 ML 16 ML IVCONT (17:30)
[2020-12-21 18:13] LABS: Venous Blood Gas Refer to POC result
[2020-12-21 19:08] LABS: Venous Blood Gas Refer to POC result
[2020-12-21 19:09] LABS: VBG Base Excess 5.9 mmol/L; VBG HCO3 28 mmol/L (22-26); VBG pCO2 32 mmHg; VBG pH 7.54 (7.32-7.43); VBG pO2 174 mmHg
[2020-12-21] MEDS: Furosemide 20 MG/2 ML VIAL IVPUSH (21:23)
--- NOTE | 2020-12-21 21:25 | MHC.PIE ---
Addendum entered by Sonny Mane RN 12/22/20 04:53: BP dropped with cardizem & lasix admin - titrated up on levo from 0.04mcg to 0.12mcg to keep map >65. Addendum entered by Sonny Mane RN 12/22/20 04:40: HR remained elevated, AFIB on EKG - cardizem boluses given; 5mg @ 2158 & 10mg @ 2210 with short acting affects. Cardizem drip started @ 2257 - remained maxed - 15mg/hr - HR much more controlled in 80's, afib w/ occ PVC's. Put out 1365ml urine since lasix given. Patient intermit tachypnea in the 30's / O2sat dropped to high 80's - increased high flow to 50 liters & 60% with good affect. Now weaned back down to 55%. Patient alert still, soft spoken - NG tube to intermit suction - tolerating small amts of ice chips. Addendum entered by Sonny Mane RN 12/21/20 21:39: HR remaining elevated 140 - appearing to be afib - Cariadd PA made aware - EKG ordered. Addendum entered by Sonny Mane RN 12/21/20 21:32: Also, RR elevated >30-40, worse when speaking or with any activity - Caridad PA at bedside - plan to titrate Fentanyl up for resp comfort (see MAR for titration details). Original Note: Patient's HR 120's - 140 sinus tach w/ pvc's, fine crackles heard throughout lung sandoval. Caridad PA at bedside to assess patient as well - ordered to stop IV fluids & give 20mg IVP lasix - order initiated. Patient alert and oriented - c/o general discomfort, but otherwise no chest pain. JVD noted. Repositioned patient for comfort.
[2020-12-21] MEDS: dilTIAZem HCL 50 MG/10 ML VIAL IVPUSH (21:58)
[2020-12-21] MEDS: dilTIAZem HCL 50 MG/10 ML VIAL 10 MG IVPUSH (22:10)
--- NOTE | 2020-12-21 22:31 | PM.CCN ---
Critical Care Event Note Summary Date of Service: 12/21/20 Code activated: No Narrative: This case had a high probability of a clinically significant, sudden, or life threatening deterioration of this patient's condition which required my full and direct attention, intervention and personal management. Critical Care Time (minutes): 30 Comment: Patient's rhythm changed to atrial fibrillation with RVR with a rate into the 150s. Gave 1 dose 5 mg Cardizem, 15 minutes later gave 2nd dose of 10 mg Cardizem, both doses had a minimal response. Started Cardizem gtt, will monitor. Assessment & Plan Assessment & Plan (1) Atrial fibrillation with RVR: Code(s): I48.91 - Unspecified atrial fibrillation Category: Medical Plan: started cardizem
[2020-12-21] MEDS: dilTIAZem HCL 125 MG in 0.9 % Sodium Chloride 100 ML 10 MG IVCONT (22:57)
[2020-12-22] VITALS (38 sets, daily range): BP systolic 87–140; BP diastolic 37–77; PULSE 76–104; RESP 26–42; TEMP 36.3–36.9; O2SAT 84–95
[2020-12-22] MEDS: 0.9 % Sodium Chloride Flush 3 ML SYRINGE IVFLUSH ×2 (00:35→08:14)
[2020-12-22] MEDS: Piperacillin Sodium/Tazobactam 3.375 GM in 0.9 % Sodium Chloride 50 ML IV ×5 (00:36→23:53)
[2020-12-22 05:36] LABS: VBG Base Excess 3.7 mmol/L; VBG HCO3 27 mmol/L (22-26); VBG pCO2 40 mmHg; VBG pH 7.44 (7.32-7.43); VBG pO2 34 mmHg
[2020-12-22 05:50] LABS: Hematocrit 33.4 % (37.0-47.0); Hemoglobin 11.1 g/dl (12.0-16.0); Mean Corpuscular HGB Conc 33.2 g/dl (31.0-35.0); Mean Corpuscular Hemoglobin 30.6 pg (27.0-33.0); Mean Platelet Volume 9.9 fL (9.4-12.3); Platelet Count 229 X10*3/uL (160-400); Red Blood Count 3.63 X10*6/uL (4.20-5.50); White Blood Count 23.2 X10*3/uL (4.8-10.8)
[2020-12-22 05:58] LABS: INTERNATIONAL NORM RATIO 1.1 (0.9-1.1); Prothrombin Time 12.5 SEC (9.9-13.0)
[2020-12-22 06:11] LABS: Anion Gap 11 (12-20); Blood Urea Nitrogen 18 mg/dL (9-16); Calcium 7.5 mg/dL (8.4-10.2); Carbon Dioxide 28 mmol/L (22-29); Chloride 106 mmol/L (96-108); Creatinine Clr Calc Pharmacy 67.7; Estimated Glomerular Filt Rate > 60; Glucose Random 173 mg/dL (60-115); Magnesium 1.6 mg/dL (1.6-2.6); Phosphorus 1.9 mg/dL (2.7-4.5); Potassium 3.5 mmol/L (3.3-5.1); Sodium 141 mmol/L (135-145); Venous Blood Gas Refer to POC result
[2020-12-22] MEDS: Pantoprazole Sodium 40 MG/10 ML VIAL IVPUSH (06:16)
[2020-12-22 06:18] LABS: B Type Natriuretic Peptide 629 pg/mL (<100)
[2020-12-22] MEDS: dilTIAZem HCL 125 MG in 0.9 % Sodium Chloride 100 ML 10 MG IVCONT ×2 (06:20→18:12)
[2020-12-22] MEDS: Chlorhexidine Gluc Oral Rinse 15 ML MOUTHWASH BUCCAL (08:19)
--- NOTE | 2020-12-22 08:20 | PM.PNGS ---
Subjective Subjective Date of Service: 12/23/20 Interval history: Extubated yesterday Went into AFib with RVR last night requiring Cardizem drip NG tube output minimal as per nurse Patient awake, answering questions but is very frail Physical Exam Vital Signs: Vital Signs: Last Vital Signs Temp 98.3 F 12/22/20 08:00 Pulse 83 12/22/20 08:00 Resp 40 H 12/22/20 08:00 BP 108/46 L 12/22/20 08:12 Pulse Ox 92 12/22/20 08:00 Body Mass Index 26.8 Chemistry 12/20/20 12/20/20 12/21/20 01:48 08:11 05:45 Sodium 140 139 139 Potassium 3.2 L 3.2 L 3.7 Carbon Dioxide 20 L 24 26 BUN 16 17 H 17 H Creatinine 0.75 0.84 0.72 Calcium 7.5 L D 7.6 L 8.0 L Phosphorus 3.7 12/21/20 12/22/20 07:52 05:27 Sodium 139 141 Potassium 3.7 3.5 Carbon Dioxide 23 28 BUN 18 H 18 H Creatinine 0.69 0.63 Calcium 7.9 L 7.5 L Phosphorus 2.0 L 1.9 L Hematology 12/20/20 12/20/20 12/21/20 01:48 08:11 05:45 WBC 3.6 L 6.6 21.3 H Hgb 12.8 12.8 10.5 L Plt Count 203 174 206 12/22/20 05:27 WBC 23.2 H Hgb 11.1 L Plt Count 229 Urinalysis 12/20/20 12:18 Urine Color YELLOW Urine Appearance CLEAR Urine pH 5.5 Ur Specific Gravit y 1.015 Urine Protein TRACE Urine Glucose (UA) NEG Urine Ketones 40 Urine Blood 1+ H Urine Nitrite NEG Ur Leukocyte Adelina ase NEG Urine RBC 5-9 H Urine WBC 0-2 Ur Squamous Epith Cells NONE Const: Other: Appears frail, somewhat short of breath Resp: Other: Some rhonchi Cardio: Rate: tachycardic GI: Other: Incision clean and dry, abdomen soft, no guarding rebound, appropriate tenderness Procedures Date of Service Date of Service: 12/22/20 Progress Note: A&P Assessment and plan (1) Incarcerated right inguinal hernia: Status: Acute Assessment and Plan: Status post reduction repair of incarcerated hernia Extubated yesterday but still appearing somewhat short of breath In new onset AFib NG tube output scanty - consider removing NG tube later today Abdomen soft WBC elevated Still requiring ICU care Pain control Fall Risk Details Current Medications: Current Medications Acetaminophen (Acetaminophen 325 Mg Tablet) 650 mg PO Q6H PRN PRN Reason: Pain, Mild (Pain Scale 1-3) Last Admin: 12/16/20 04:49 Dose: 650 mg Documented by: Albuterol/Ipratropium (Albuterol/Iprat 2.5/0.5mg 3 Ml Ampul.Neb) 3 ml INHALE RQ6H PRN PRN Reason: Wheezing Chlorhexidine Gluconate (Chlorhexidine Gluc Oral Rinse 15 Ml Mouthwash) 15 ml BUCCAL TID LAMIN Last Admin: 12/22/20 08:19 Dose: 15 ml Documented by: Docusate Sodium (Docusate Sodium 100 Mg Capsule) 100 mg PO DAILY PRN PRN Reason: Constipation Fentanyl (Fentanyl Citrate/Pf 100 Mcg/2 Ml Vial) 100 mcg IVPUSH Q5M PRN; Protocol PRN Reason: wob Last Admin: 12/21/20 10:15 Dose: 100 mcg Documented by: Propofol (Diprivan) 1,000 mg in 100 mls @ 0 mls/hr IVCONT .Q0M LAMIN; Protocol Last Titration: 12/21/20 10:46 Dose: Infused Documented by: Fentanyl (Sublimaze/Ns) 1,000 mcg in 100 mls @ 0 mls/hr IVCONT .Q0M LAMIN; Protocol Last Titration: 12/21/20 20:50 Dose: 50 mcg/hr, 5 mls/hr Documented by: Piperacillin Sod/Tazobactam (Sod 3.375 gm/ Sodium Chloride) 50 mls @ 100 mls/hr IV Q6H LAMIN Last Infusion: 12/22/20 06:49 Dose: Infused Documented by: Dextrose/Lactated Ringer's (D5lr) 1,000 mls @ 50 mls/hr IVCONT .Q20H LAMIN Last Admin: 12/22/20 08:13 Dose: Not Given Documented by: Norepinephrine Bitartrate (Levophed) 8 mg in 250 mls @ 0 mls/hr IVCONT .Q0M LAMIN; Protocol Last Titration: 12/22/20 08:12 Dose: 0.16 mcg/kg/min, 22.62 mls/hr Documented by: Potassium Chloride 60 meq/Magnesium Sulfate 10 meq/Potassium Phosphate 40 mmol/Calcium Gluconate 9 meq/Multivitamins 12.8 ml/ Trace Metals 1.3 ml/ Amino Acids/Dextrose 1,560 mls @ 65 mls/hr IVCONT DAILY@1800 [facility] Stop: 12/22/20 17:59 Last Admin: 12/21/20 17:30 Dose: 65 mls/hr Documented by: Diltiazem HCl 125 mg/ Sodium (Chloride) 125 mls @ 0 mls/hr IVCONT .Q0M [facility]; Protocol Last Admin: 12/22/20 06:20 Dose: 10 mg/hr, 10 mls/hr Documented by: Naloxone HCl (Naloxone Hcl 0.4 Mg/Ml Vial) 0.2 mg IVPUSH Q2M PRN PRN Reason: Excessive sedation or RR < 8 Ondansetron HCl (Ondansetron Hcl 4 Mg/2 Ml Vial) 4 mg IVPUSH Q8H PRN PRN Reason: Nausea and Vomiting Last Admin: 12/17/20 09:20 Dose: 4 mg Documented by: Ondansetron HCl (Ondansetron Hcl 4 Mg/2 Ml Vial) 4 mg IVPUSH ONCE PRN PRN Reason: Nausea and Vomiting Pantoprazole Sodium (Pantoprazole Sodium 40 Mg/10 Ml Vial) 40 mg IVPUSH DAILY@0630 [facility] Last Admin: 12/22/20 06:16 Dose: 40 mg Documented by: Pharmacy Consult (Consult Rx Perform Med Rec) 1 each MISCELLANE ONCE PRN PRN Reason: Consult order Sodium Biphosphate/Sodium Phosphate (Sodium Phosphate,Alexander-Dibasic 133 Ml Enema) 133 ml GA ONCE PRN PRN Reason: Constipation Last Admin: 12/20/20 20:18 Dose: 133 ml Documented by: Sodium Chloride (0.9 % Sodium Chloride Flush 3 Ml Syringe) [facility] Last Admin: 12/22/20 08:14 Dose: 3 ml Documented by: Sucralfate (Sucralfate Oral Suspension 1 Gm/10 Ml Oral.Susp) 1 gm PO QIDACHS [facility] Last Admin: 12/22/20 08:13 Dose: Not Given Documented by: Time Spent With Patient Time: Total time spent is greater than 50% in coordination of care (as documented) at patient's floor/unit and/or counseling patient: Time with patient: 15 - 24 minutes Quality Stroke Does the patient have a stroke diagnosis?: No VTE Prior VTE?: No VTE Risk Level:: Medical - moderate - high VTE Device Contraindication: N/A - Device Ordered VTE Drug Contraindication: Treatment Not Indicated
[2020-12-22 08:50] LABS: Procalcitonin 0.76 ng/mL
--- NOTE | 2020-12-22 11:05 | MHC.CLN ---
Addendum entered by Aimee Bradley, GABINO 12/22/20 11:42: AGREE WITH PROVIDER'S ASSESSMENT BELOW EXCEPT TPN CLARIFICATION D15 AA5% Original Note: F/U PT WAS EXTUBATED 12/21 DISCUSSED WITH MD AT ROUNDS KUS[facility]ey XRAY ORDERED PER MD IF AIDA TUBE PLACED: RECOMMEND TUBE FEEDING JEVITY AT MAX GOAL RATE 60 ML/HOUR WITH 30 ML PROSOURCE ONCE A DAY TO PROVIDE 1586 KCALS, 79 GRAMS PROTEIN, AND 1202 CC FREE WATER FROM FORMULA IF AIDA TUBE NOT PLACED: CONTINUE TPN D15 AA25% AT 65 ML/HOUR WITH 20% LIPIDS AT 16 ML/HOUR TO PROVIDE 1492 KCALS, 78 GRAMS PROTEIN MONITOR LYTES; CHECK TRIGS
[2020-12-22] MEDS: fentaNYL citrate/NS 1,000 MCG/100 ML PLAST..BAG 10 MCG IVCONT ×3 (11:35→22:31)
[2020-12-22 11:57] LABS: Triglycerides 135 mg/dL
--- NOTE | 2020-12-22 12:11 | PC.NURSE ---
Addendum entered by Kaylen Rosario RN 12/22/20 18:23: SEE EMAR FOR CARDIZEM, FENTANYL, AND LEVOPHED GTTS. REMAINS ON 15L HOOKS NC. FREQUENT ICE CHIPS GIVEN - TOLERATES WELL. SISTER KALYN NOTIFIED THIS RN THAT WHEN PATIENT PASSES THE HOME IS [facility] BY THE [address] ON [address], [place]. ALSO PLEASE CALL HER CELLPHONE: [phone] WITH ANY CHANGES. Original Note: FAMILY MEETING WITH MD TO DISCUSS CURRENT STATUS. FAMILY VISITING AND THEN WILL RE-ADDRESS PLAN OF CARE AFTER VISIT. NG TUBE REMOVED PER MD. CHANGED TO 15L NC FROM HIGH FLOW. FENTANYL GTT INCREASED FOR INCREASED RR PER MD. WILL CONTINUE TO MONITOR.
--- NOTE | 2020-12-22 19:19 | P.PNCC_ITS ---
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.? 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 She has a no significant past medical history, although she reported taking ibuprofen twice a day for many years for arthritic pain. ?She also previously had a femoral hernia repair.? The patient is known to have DNR/DNI status.? Her healthcare proxy is one of the other Sisters, Sister Laurita Douglas. The patient presented to the ED ambulatory on December 15 complaining of coffee-ground emesis for the prior 3 days.? There was no diarrhea and mild epigastric pain.? Vital signs in the ED were unremarkable, although the patient was in atrial fibrillation with a controlled rate.? Physical exam including the abdominal exam were unremarkable.? Labs were notable for a leukocytosis, mild acute kidney injury, and moderate hyponatremia.? The hemoglobin was 13.7. On December 17, the patient underwent EGD which showed he 3 cm sliding hiatal hernia, and severe esophagitis.? There was 1.5 L of fluid that was suctioned out of the stomach.? The duodenum also showed severe scattered ulcerative duodenitis.? She was treated with PPI.? At some point she converted to SR. The patient had persistent pain with po intake.? On December 19, the patient underwent abdominal CT which showed a high-grade distal small-bowel obstruction secondary to what looks like a short segment of incarcerated small bowel within a right inguinal hernia.? The patient was seen urgently by Dr. Rice.? The bowel was felt to be compromised.? Plan was made to take the patient to the OR.? Preoperative placement of an NG tube was attempted but was unable. At operation, the patient vomited on induction of anesthesia.? The patient was intubated successfully, and 1200 cc was sucked out of the stomach.? At surgical exploration, the patient was found to have a right femoral hernia with previous ly placed mesh.? The mesh was removed.? The patient underwent resection of a 15 cm length of small-bowel, with [id number] primary anastomosis, which was then covered with peritoneum.? Mesh was used to close the femoral hernia.? At the end of the operation early yesterday morning, the patient was transferred to the ICU, still intubated and sedated.? Postop chest x-ray showed patchy bilateral airspace consolidations, very consistent with aspiration. A central venous line was placed.? During ultrasound for the line placement, it was noted that the patient had marked inspiratory venous collapse.? On placement of the central venous line, CVP was noted to be about 2 cm.? She was felt to be hypovolemic.? She was volume resuscitated with colloid.? Measured lactic acid was 1.1.? Blood cultures were drawn, and echo was done later in the evening (see below).? Later in the day, we were able to get the FiO2 down to 40%.? The patient was lightly sedated and easily arousable.? We kept her intubated because her respiratory rate and minute volume were elevated. Bedside ECHOCARDIOGRAM was notable for: 1. Normal LV function.? Ejection fraction at least 50%. 2. RV size and function normal. 3. 1+TR by color-tam, with CWD measuring 2.0 m/sec, or gradient of 16cm. 4. IVC measured about 1.7 cm, with maybe 20% inspiratory collapse.? Estimated CVP 8-10 mm.?? Estimated RVSP 24-26mm. She was extubated the next morning (yesterday) without incident.? She did relatively well throughout the day, altho respiratory excursion was on the shallow side, injury required low-dose Levophed.? She was taking ice chips with no problem.? Mental status was normal. Last night, she went into afib, and req a diltiazem drip for rate control.? Overnight, her Levophed dose went up to 0.16.? This morning she looks much more washed out and is less animated than she was yesterday.? Her respiratory rate is more rapid and more shallow, and her oxygenation is worse.? Her voice is much softer.? Heart rate is 80-90, AFib.? Blood pressure is 122/52 on Levophed 0.1 4ug. ?Respiratory rate is high 30s on high-flow nasal cannula 50 L/60%, with sat 90% (down from 93% on 40% FiO2 yesterday).? She has trace accessory muscle use with very shallow excursion. ?Central venous blood gas this morning showed 7.44/40/+3 (PvCO2 is up from 32 yesterday).? She remains afebrile.? She has no jugular venous distention.? Chest is clear to auscultation.? Irregular rhythm, no murmur or gallops appreciated.? Abdomen is nondistended.? Bowel sounds are present and slightly hypoactive.? NG output overnight was minimal.? She complains of pain on light palpation of the lateral femoral area on the right (lateral to her incision), and has mild diffuse abdominal tenderness on the right, with no guarding or rebound.? She has minimal edema.? Left arm is noticeably bigger than right. LABORATORY DATA:? As below.? Notably, white count up slightly to 23 this morning.? Renal indices steady.? BNP is 629.? PCT is 0.7. MICROBIOLOGY:? Sputum Gram stain from yesterday showed 4+ polys, 2+ g positive rods, 1+ Gram-positive cocci, consistent with aspiration.? Cultures growing 4+ Gram-negative rods ANTIBIOTICS:? Zosyn day# 3. IMAGING:? Chest x-ray this morning showed bilateral airspace opacities, may be slightly worse than the previous film.? KUB showed the NG tube well in the stomach.? She is gaseous distention of the small bowel, markedly improved since the film of 12/19. PATHOLOGY:? The 12 cm segment of small bowel showed ischemic enteritis. IMPRESSION: 1. Complete small bowel obstruction with ischemic small bowel secondary to incarcerated femoral hernia.? Status post operative repair. 2. Status post aspiration on induction of anesthesia, resulting in aspiration pneumonia and acute respiratory failure.? Was doing OK yesterday, but as I expected, she?s fading today, with rapid shallow breathing and increased oxygen requirement.? Under normal circumstances, this patient would wind up being reintubated, soon or later. 3. Acute respiratory failure.? Opiates for work of breathing.? We?ll go up on her fentanyl infusion.? She got one dose of Lasix last night. ?We?ll give her another dose now. 4. Hypotension.? The question is, is she septic?? Looks more very frail than toxic, hayden with her mental status so good.? Certainly not floridly septic.? She?s on Zosyn, which is as good as any other antibiotic for aspiration pneumonia, and would cover bowel ashu.? But I am concerned about her white co unt and about the greater than expected tenderness on her right side.? I would like to send her for CT scan.? Discussed with Dr. Sandhu.? He thinks we should do it with IV contrast. 5. R/o DVT left upper extrem.? Ordered a venous duplex. 6. At least moderate if not severe protein calorie malnutrition.? Continuing TPN for now.? We?ll take out the sal[place] sump NG tube and place a KaOfeed tube for enteral feeds. Prognosis is very guarded. I spoke to the patient?s HCP, Sister Laurita Douglas, at length about my concerns and her prognosis.? Then I spoke in conference to the patient?s biological family.? The patient said that she doesn?t want to go to CT scan, and she?s ready to go to God.? In d/w the family, we decided on no more tests, and no invasive management.? She will have DNR status, focusing primarily on comfort. Have written DNR orders.? We?ll continue abx and pressors.? We?ll d/c the [place] sump NG tube.? Will not place the KaOfeed tube.? No CT scan or ultrasound. We?ll give her a clear liquid diet.? Up the fentanyl infusion to make sure she?s comfortable. Critical care time:? 100+ minutes. Critical Care Time (minutes): 100 Physical Exam Vital Signs: Vital Signs: Last Vital Signs Temp 98.4 F 12/22/20 16:00 Pulse 90 12/22/20 18:00 Resp 33 H 12/22/20 18:00 BP 110/77 12/22/20 18:00 Pulse Ox 87 L 12/22/20 18:00 Body Mass Index 26.8 Objective Data Labs CBC & Chem 7: 12/22/20 05:27 12/22/20 05:27 Labs: Laboratory Results - last 24 hr 12/22/20 12/22/20 12/22/20 05:27 05:27 05:27 WBC 23.2 H RBC 3.63 L Hgb 11.1 L Hct 33.4 L MCV 92.0 MCH 30.6 MCHC 33.2 RDW 13.0 Plt Count 229 MPV 9.9 Absolute Nucleated RBC 0.000 Nucleated RBC % (auto) 0.0 PT 12.5 INR 1.1 VBG pH VBG pCO2 VBG pO2 VBG HCO3 VBG O2 Saturation VBG Base Excess Sodium 141 Potassium 3.5 Chloride 106 Carbon Dioxide 28 Anion Gap 11 L BUN 18 H Creatinine 0.63 Estim Creat Clear Calc 67.7 Estimated GFR > 60 Random Glucose 173 H Calcium 7.5 L Phosphorus 1.9 L Magnesium 1.6 B-Natriuretic Peptide Triglycerides 135 Procalcitonin 12/22/20 12/22/20 12/22/20 05:27 05:27 05:30 WBC RBC Hgb Hct MCV MCH MCHC RDW Plt Count MPV Absolute Nucleated RBC Nucleated RBC % (auto) PT INR VBG pH 7.44 H VBG pCO2 40 VBG pO2 34 VBG HCO3 27 H VBG O2 Saturation 59.0 VBG Base Excess 3.7 Sodium Potassium Chloride Carbon Dioxide Anion Gap BUN Creatinine Estim Creat Clear Calc Estimated GFR Random Glucose Calcium Phosphorus Magnesium B-Natriuretic Peptide 629 H Triglycerides Procalcitonin 0.76 Microbiology Microbiology Results: Microbiology 12/20/20 12:15 Blood - Central Line Blood Culture - Preliminary No growth after 48 hours. 12/20/20 12:15 Blood - Central Line Blood Culture - Preliminary No growth after 48 hours. 12/20/20 12:18 Sputum - Suctioned Gram Stain - Final 12/20/20 12:18 Sputum - Suctioned Sputum Culture - Preliminary Gram negative james Quality Stroke Does the patient have a stroke diagnosis?: No VTE Prior VTE?: No VTE Risk Level:: Medical - moderate - high VTE Device Contraindication: N/A - Device Ordered VTE Drug Contraindication: Treatment Not Indicated Critical Care Time Critical Care Time (minutes): 90
[2020-12-22] MEDS: Furosemide 40 MG/4 ML VIAL IVPUSH (20:25)
[2020-12-22] MEDS: Magnesium Sulfate/D5W 1 GM/100 ML PIGGYBACK IV (20:25)
[2020-12-23] VITALS (26 sets, daily range): BP systolic 104–128; BP diastolic 41–59; PULSE 77–96; RESP 24–37; TEMP 36.4–36.6; O2SAT 84–90
[2020-12-23] MEDS: Furosemide 20 MG/2 ML VIAL IVPUSH ×2 (01:47→18:06)
[2020-12-23] MEDS: dilTIAZem HCL 125 MG in 0.9 % Sodium Chloride 100 ML 10 MG IVCONT ×2 (03:54→16:21)
[2020-12-23 05:31] LABS: VBG Base Excess 5.2 mmol/L; VBG HCO3 29 mmol/L (22-26); VBG pCO2 40 mmHg; VBG pH 7.46 (7.32-7.43); VBG pO2 41 mmHg
[2020-12-23 05:44] LABS: Hematocrit 33.3 % (37.0-47.0); Mean Corpuscular Hemoglobin 30.2 pg (27.0-33.0); Mean Corpuscular Volume 91.5 fL (80.0-98.0); Mean Platelet Volume 9.7 fL (9.4-12.3); Platelet Count 198 X10*3/uL (160-400); Red Blood Count 3.64 X10*6/uL (4.20-5.50); Red Cell Distribution Width 13.2 % (11.0-16.0)
[2020-12-23 06:11] LABS: Albumin Level 2.7 g/dL (3.5-5.0); Anion Gap 15 (12-20); Blood Urea Nitrogen 20 mg/dL (9-16); Calcium 7.5 mg/dL (8.4-10.2); Carbon Dioxide 25 mmol/L (22-29); Chloride 104 mmol/L (96-108); Creatinine Clr Calc Pharmacy 66.6; Estimated Glomerular Filt Rate > 60; Glucose Random 123 mg/dL (60-115); Magnesium 1.7 mg/dL (1.6-2.6); Phosphorus 3.3 mg/dL (2.7-4.5); Potassium 3.8 mmol/L (3.3-5.1); Sodium 140 mmol/L (135-145)
--- NOTE | 2020-12-23 06:19 | PC.NURSE ---
CARE ASSUMED 23:15...REMAINS HOOKS CANNULA 15 L/M...SAO2 87%...LUNGS DIFFUSE CRACKLES AT 12AM...RR 26-28...AWAKE..WHISPERS SOFTLY..DENIES PAIN OR SOB..ATRIAL FIB CONTROLLED HR WITH CARDIZEM 10 MG/HR...LEVOPHED 0.07 MCG/KG/MIN...ICU PA UPDATED...LASIX 29 MG IVP GIVEN...SAO2 88-89% THIS AM...PENSION CONSULTANT AFFIRMS NO ESCALATION OF CARE AND/OR FURTHER INVASIVE INTERVENTIONS PER CLOTH FINISHER PROGRESS NOTE...RESTFUL OVERNIGHT
[2020-12-23] MEDS: Pantoprazole Sodium 40 MG/10 ML VIAL IVPUSH (06:30)
[2020-12-23] MEDS: Piperacillin Sodium/Tazobactam 3.375 GM in 0.9 % Sodium Chloride 50 ML IV ×3 (06:30→18:06)
[2020-12-23 07:16] LABS: Venous Blood Gas Refer to POC result
[2020-12-23] MEDS: fentaNYL citrate/NS 1,000 MCG/100 ML PLAST..BAG 10 MCG IVCONT (08:00)
--- NOTE | 2020-12-23 08:16 | P.PNGS_ITS ---
Subjective Subjective Date of Service: 12/23/20 Interval history: Family has decided that no further invasive interventions will be done. She has remained short of breath She says she is currently comfortable Physical Exam Vital Signs: Vital Signs: Last Vital Signs Temp 97.6 F 12/23/20 08:00 Pulse 87 12/23/20 08:00 Resp 36 H 12/23/20 08:00 BP 112/55 L 12/23/20 08:00 Pulse Ox 89 L 12/23/20 08:00 Body Mass Index 26.8 Const: Other: Looks very frail, short of breath Resp: Other: Some respiratory distress GI: Other: Soft, no guarding or rebound, nondistended, incision on the right groin clean and dry Procedures Date of Service Date of Service: 12/23/20 Progress Note: A&P Assessment and plan (1) Incarcerated right inguinal hernia: Status: Acute Assessment and Plan: as per family, comfort measures only Incision otherwise healing well Abdomen remained soft No evidence of wound infection or recurrent hernia Discussed with another sister who was at bedside Care as per the parish visitor Fall Risk Details Current Medications: Current Medications Acetaminophen (Acetaminophen 325 Mg Tablet) 650 mg PO Q6H PRN PRN Reason: Pain, Mild (Pain Scale 1-3) Last Admin: 12/16/20 04:49 Dose: 650 mg Documented by: Albuterol/Ipratropium (Albuterol/Iprat 2.5/0.5mg 3 Ml Ampul.Neb) 3 ml INHALE RQ6H PRN PRN Reason: Wheezing Docusate Sodium (Docusate Sodium 100 Mg Capsule) 100 mg PO DAILY PRN PRN Reason: Constipation Fentanyl (Fentanyl Citrate/Pf 100 Mcg/2 Ml Vial) 100 mcg IVPUSH Q5M PRN; Protocol PRN Reason: wob Last Admin: 12/21/20 10:15 Dose: 100 mcg Documented by: Piperacillin Sod/Tazobactam (Sod 3.375 gm/ Sodium Chloride) 50 mls @ 100 mls/hr IV Q6H [facility] Last Infusion: 12/23/20 07:00 Dose: Infused Documented by: Norepinephrine Bitartrate (Levophed) 8 mg in 250 mls @ 0 mls/hr IVCONT .Q0M LAMIN; Protocol Last Titration: 12/22/20 21:32 Dose: 0.07 mcg/kg/min, 9.9 mls/hr Documented by: Diltiazem HCl 125 mg/ Sodium (Chloride) 125 mls @ 0 mls/hr IVCONT .Q0M [facility]; Protocol Last Admin: 12/23/20 03:54 Dose: 10 mg/hr, 10 mls/hr Documented by: Fentanyl (Sublimaze/Ns) 1,000 mcg in 100 mls @ 10 mls/hr IVCONT .Q10H [facility]; Protocol Last Admin: 12/23/20 08:00 Dose: 100 mcg/hr, 10 mls/hr Documented by: Naloxone HCl (Naloxone Hcl 0.4 Mg/Ml Vial) 0.2 mg IVPUSH Q2M PRN PRN Reason: Excessive sedation or RR < 8 Ondansetron HCl (Ondansetron Hcl 4 Mg/2 Ml Vial) 4 mg IVPUSH Q8H PRN PRN Reason: Nausea and Vomiting Last Admin: 12/17/20 09:20 Dose: 4 mg Documented by: Ondansetron HCl (Ondansetron Hcl 4 Mg/2 Ml Vial) 4 mg IVPUSH ONCE PRN PRN Reason: Nausea and Vomiting Pantoprazole Sodium (Pantoprazole Sodium 40 Mg/10 Ml Vial) 40 mg IVPUSH DAILY@0630 [facility] Last Admin: 12/23/20 06:30 Dose: 40 mg Documented by: Pharmacy Consult (Consult Rx Perform Med Rec) 1 each MISCELLANE ONCE PRN PRN Reason: Consult order Sodium Biphosphate/Sodium Phosphate (Sodium Phosphate,Borden-Dibasic 133 Ml Enema) 133 ml [place] ONCE PRN PRN Reason: Constipation Last Admin: 12/20/20 20:18 Dose: 133 ml Documented by: Sodium Chloride (0.9 % Sodium Chloride Flush 3 Ml Syringe) 3 ml IVFLUSH QSHIFT [facility] Last Admin: 12/22/20 20:49 Dose: Not Given Documented by: Time Spent With Patient Time: Total time spent is greater than 50% in coordination of care (as documented) at patient's floor/unit and/or counseling patient: Time with patient: 15 - 24 minutes Quality Stroke Does the patient have a stroke diagnosis?: No VTE Prior VTE?: No VTE Risk Level:: Medical - moderate - high VTE Device Contraindication: N/A - Device Ordered VTE Drug Contraindication: Treatment Not Indicated
--- NOTE | 2020-12-23 09:32 | MHC.CLN ---
Addendum entered by Aimee Bradley, GABINO 12/23/20 11:45: AGREE WITH PROVIDER'S ASSESSMENT BELOW Original Note: F/U DIET RX: CLEAR LIQUID PT IS DNR TPN DISCONTINUED PRIMARY GOAL IS COMFORT WILL FOLLOW WITH TEAM
--- NOTE | 2020-12-23 11:13 | P.PNCC_ITS ---
Subjective Subjective Date of Service: 12/23/20 Interval History: Sister Celena was transferred to the ICU early on Dec 20 from the operating room with acute respiratory failure after emergent small bowel resection and repair of incarcerated femoral hernia. 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.? 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 She has a no significant past medical history, although she reported taking ibuprofen twice a day for many years for arthritic pain. ?She also previously had a femoral hernia repair.? The patient is known to have DNR/DNI status.? Her healthcare proxy is one of the other Sisters, Sister Laurita Douglas. The patient presented to the ED ambulatory on December 15 complaining of coffee-ground emesis for the prior 3 days.? There was no diarrhea and mild epigastric pain.? Vital signs in the ED were unremarkable, although the patient was in atrial fibrillation with a controlled rate.? Physical exam including the abdominal exam were unremarkable.? Labs were notable for a leukocytosis, mild acute kidney injury, and moderate hyponatremia.? The hemoglobin was 13.7. On December 17, the patient underwent EGD which showed he 3 cm sliding hiatal hernia, and severe esophagitis.? There was 1.5 L of fluid that was suctioned out of the stomach.? The duodenum also showed severe scattered ulcerative duodenitis.? She was treated with PPI.? At some point she converted to SR. The patient had persistent pain with po intake.? On December 19, the patient underwent abdominal CT which showed a high-grade distal small-bowel obstruction secondary to what looks like a short segment of incarcerated small bowel within a right inguinal hernia.? The patient was seen urgently by Dr. Rice.? The bowel was felt to be compromised.? Plan was made to take the patient to the OR.? Preoperative placement of an NG tube was attempted but was unable. At operation, the patient vomited on induction of anesthesia.? The patient was intubated successfully, and 1200 cc was sucked out of the stomach.? At surgical exploration, the patient was found to have a right femoral hernia with previous ly placed mesh.? The mesh was removed.? The patient underwent resection of a 15 cm length of small-bowel, with [id number] primary anastomosis, which was then covered with peritoneum.? Mesh was used to close the femoral hernia.? At the end of the operation early yesterday morning, the patient was transferred to the ICU, still intubated and sedated.? Postop chest x-ray showed patchy bilateral airspace consolidations, very consistent with aspiration. A central venous line was placed.? During ultrasound for the line placement, it was noted that the patient had marked inspiratory venous collapse.? On placement of the central venous line, CVP was noted to be about 2 cm.? She was felt to be hypovolemic.? She was volume resuscitated with colloid.? Measured lactic acid was 1.1.? Blood cultures were drawn, and echo was done later in the evening (see below).? Later in the day, we were able to get the FiO2 down to 40%.? The patient was lightly sedated and easily arousable.? We kept her intubated because her respiratory rate and minute volume were elevated. Bedside ECHOCARDIOGRAM was notable for: 1. Normal LV function.? Ejection fraction at least 50%. 2. RV size and function normal. 3. 1+TR by color-tam, with CWD measuring 2.0 m/sec, or gradient of 16cm. 4. IVC measured about 1.7 cm, with maybe 20% inspiratory collapse.? Estimated CVP 8-10 mm.?? Estimated RVSP 24-26mm. She was extubated the next morning Dec 21 without incident.? She did relatively well throughout the day, altho respiratory excursion was on the shallow side, and she required low-dose Levophed.? She was taking ice chips with no problem.? Mental status was normal.? Yesterday however, she was worse, with even more rapid shallow breathing, worse oxygenation, much higher levophed requirement, she went into afib, and her WBC was higher.? She was very tender on the lateral aspect of her upper right thigh. ?We considered a repeat CT scan but the patient declined and she and the healthcare proxy and the patient's family wanted no more interventions and wanted to focus more on comfort care.? We continued hemodynamic management and antibiotics.? We pulled the NG tube and changed her over to a Bridges nasal cannula. This morning, the patient looks much more alert, more animated, and is certainly more cheery. ?She feels much better, by her own admission, and was smiling for the first time since I?ve met her.? Her voice is much stronger. ?Overall, she looks much much better, by my opinion, and by the family's and her healthcare proxy?s spontaneous remarks.? She still looks ill, but not acutely so and today looks thoroughly nontoxic. ?Breathing is less rapid and less shallow, albeit slightly so.? RR is running 28-low 30s on 15 L Bridges nasal cannula, with sat about 85-87%. ?No accessory muscle use. ?Central venous blood gas this morning showed 7.46/40/+5, virtually unchanged from yesterday. ?HR is 90, afib, BP about 120/50, w her Levophed dose down to 0.07 ug.? She remains afebrile.? She has no jugular venous distention.? Chest is clear to auscultation.? Irregular rhythm, no murmur or gallops appreciated.? Abdomen is nondistended.? Bowel sounds are present.? The staple line of her incision is clean.? She has absolutely no tenderness on palpation of the thigh or the low abdomen; in fact she remarked that I was tickling her. ?She has minimal edema.? Left arm is noticeably bigger than right. LABORATORY DATA:? As below.? Notably, white count is still 23 this morning.? Renal indices and serum sodium are steady after diuresis yesterday. MICROBIOLOGY:? Sputum Gram stain from 12/20 showed 4+ polys, 2+ g positive rods, 1+ Gram-positive cocci.? Cultures growing 4+ Enterobacter, mostly sensitive. ANTIBIOTICS:? Zosyn day# 4. PATHOLOGY:? The 12 cm segment of small bowel showed ischemic enteritis. IMPRESSION: 1. Complete small bowel obstruction with ischemic small bowel secondary to incarcerated femoral hernia.? S/p operative repair. 2. S/p aspiration on induction of anesthesia, resulting in aspiration pneumonia and acute respiratory failure.? Doing better today, by all accounts. 3. Acute respiratory failure.? Opiates for work of breathing.? I?m going to give her another small dose of Lasix this evening. 4. Hypotension.? No longer looks septic, and the Levophed dose has been coming down progressively thru the day. 5. R/o DVT left upper extrem.? Ordered a venous duplex.? (We canceled it yesterday at the patient's request, but she is agreeing to it today.) 6. ID.? Plan 5-7 day course of Zosyn. 7. Laxation.? Start dulcolax 1 tab po daily until she poops. 8. At least moderate if not severe protein calorie malnutrition.? Continuing TPN for now.? Advance diet as tolerated.? No feeding tubes per patient and HCP. I spoke to the patient?s HCP, Sister Laurita Douglas, and the patient?s biological family yesterday at length about my concerns and her prognosis.? The patient did not want to undergo any more invasive management or tests, and the family agr eed.? We agreed to focus more on comfort.? DNR orders have been written.? Today, everyone including the patient says that she is doing better.? We?re all willing to be little more aggressive, but still non interventional. Prognosis still guarded, but there?s reason to hope today. Discussed at length with Dr. Rice. Critical care time:? 70+ minutes. Critical Care Time (minutes): 70 Physical Exam Vital Signs: Vital Signs: Last Vital Signs Temp 97.6 F 12/23/20 08:00 Pulse 96 12/23/20 10:00 Resp 37 H 12/23/20 10:00 BP 128/57 L 12/23/20 10:00 Pulse Ox 86 L 12/23/20 10:00 Body Mass Index 26.8 Objective Data Labs CBC & Chem 7: 12/23/20 05:20 12/23/20 05:20 Labs: Laboratory Results - last 24 hr 12/22/20 12/23/20 12/23/20 05:27 05:20 05:20 WBC 23.0 H RBC 3.64 L Hgb 11.0 L Hct 33.3 L MCV 91.5 MCH 30.2 MCHC 33.0 RDW 13.2 Plt Count 198 MPV 9.7 Absolute Nucleated RBC 0.000 Nucleated RBC % (auto) 0.0 VBG pH VBG pCO2 VBG pO2 VBG HCO3 VBG O2 Saturation VBG Base Excess Sodium 140 Potassium 3.8 Chloride 104 Carbon Dioxide 25 Anion Gap 15 BUN 20 H Creatinine 0.64 Estim Creat Clear Calc 66.6 Estimated GFR > 60 Random Glucose 123 H Calcium 7.5 L Phosphorus 3.3 Magnesium 1.7 Albumin 2.7 L Triglycerides 135 12/23/20 05:26 WBC RBC Hgb Hct MCV MCH MCHC RDW Plt Count MPV Absolute Nucleated RBC Nucleated RBC % (auto) VBG pH 7.46 H VBG pCO2 40 VBG pO2 41 VBG HCO3 29 H VBG O2 Saturation 70.0 VBG Base Excess 5.2 Sodium Potassium Chloride Carbon Dioxide Anion Gap BUN Creatinine Estim Creat Clear Calc Estimated GFR Random Glucose Calcium Phosphorus Magnesium Albumin Triglycerides Microbiology Microbiology Results: Microbiology 12/20/20 12:18 Sputum - Suctioned Gram Stain - Final 12/20/20 12:18 Sputum - Suctioned Sputum Culture - Final Enterobacter cloacae complex 12/20/20 12:15 Blood - Central Line Blood Culture - Preliminary No growth after 48 hours. 12/20/20 12:15 Blood - Central Line Blood Culture - Preliminary No growth after 48 hours. Quality Stroke Does the patient have a stroke diagnosis?: No VTE Prior VTE?: No VTE Risk Level:: Medical - moderate - high VTE Device Contraindication: N/A - Device Ordered VTE Drug Contraindication: Treatment Not Indicated Critical Care Time Critical Care Time (minutes): 60
--- NOTE | 2020-12-23 12:26 | MHC.CLN ---
Addendum entered by Aimee Bradley, GABINO 12/23/20 12:29: agree with providers assessment below with addition TPN clarification D15 AA5% and this hand sign writer discussed with pharmacy Original Note: F/U TPN RESTARTED PER MD RECOMMEND TPN D15 AA25% AT 65 ML/HOUR WITH 20% LIPIDS AT 16 ML/HOUR TO PROVIDE 1492 KCALS, 78 GRAMS PROTEIN MONITOR LYTES; CHECK TRIGS
[2020-12-23] MEDS: Magnesium Sulfate/H2O 2 GM/50 ML PIGGYBACK IV (12:53)
--- NOTE | 2020-12-23 15:48 | MHC.CM.PN ---
Pt has opted to not pursue aggressive treatment at this time and will shift to a more MANAGER TRANSFUSION status. Awaiting formal order placement at this time. CM will continue to follow for changes in d/c planning
[2020-12-23] MEDS: 0.9 % Sodium Chloride Flush 3 ML SYRINGE IVFLUSH (16:22)
[2020-12-23] MEDS: fentaNYL citrate/NS 1,000 MCG/100 ML PLAST..BAG 12.5 MCG IVCONT (18:10)
[2020-12-23] MEDS: Fat Emulsions 20% 250 ML 16 ML IVCONT (18:22)
[2020-12-23] MEDS: bisacodyL 5 MG TABLET.DR PO (18:31)
--- NOTE | 2020-12-23 19:16 | PC.NURSE ---
VSS, afebirle on levophed gtt- able to be titrated off. Afib on tele- on cardizem gtt. Pt alert and oriented to self and place- vague on situation. Swelling to L arm- u/s being done. Satting 84-89% on 15l md scott aware. RR up to 36- fentanyl gtt titrated for respiratory effort. u/o wnl, IVP lasix given. No bm- dulcolax given PO. TPN and lipids hung, repo as pt requested/for comfort. Bath given, family and sister Laurita updated bedside by myself and MD. Attempted to call Alida- sister at [phone], no answer.
--- NOTE | 2020-12-23 20:54 | PC.NURSE ---
notified icu pa Caridad of result of + dvt in left internal jugular vein, with suboptimal eval L sc axillary arter and basal veins. Caridad in collaboration with press tender smoke signal regarding plan. no new orders at this time.
[2020-12-23] MEDS: Enoxaparin Sodium 80 MG/0.8 ML SYRINGE 70 MG SUBCUT (21:25)
[2020-12-24] VITALS (18 sets, daily range): BP systolic 98–133; BP diastolic 34–70; PULSE 80–104; RESP 12–38; TEMP 37.1–37.2; O2SAT 83–93; BMI 28.1
[2020-12-24] MEDS: Furosemide 20 MG/2 ML VIAL IVPUSH ×3 (00:06→03:47)
[2020-12-24] MEDS: 0.9 % Sodium Chloride Flush 3 ML SYRINGE IVFLUSH ×2 (00:06→07:23)
[2020-12-24] MEDS: Piperacillin Sodium/Tazobactam 3.375 GM in 0.9 % Sodium Chloride 50 ML IV ×2 (00:06→05:15)
[2020-12-24] MEDS: fentaNYL citrate/NS 1,000 MCG/100 ML PLAST..BAG 12.5 MCG IVCONT ×2 (00:29→08:35)
[2020-12-24] MEDS: dilTIAZem HCL 125 MG in 0.9 % Sodium Chloride 100 ML 10 MG IVCONT (00:29)
[2020-12-24] MEDS: Albumin Human 25 % 100 ML IV ×2 (01:07→02:15)
--- NOTE | 2020-12-24 04:55 | PC.NURSE ---
Addendum entered by Popeye Galicia RN 12/24/20 06:36: SAO2 DOWN TO 80-81%...DYSPNEIC...PLACE ON 100% NRB MASK...MOUTH BREATHER...SAO2 UP TO 88% WITH HOOKS 15 L/M AND 100% NRB MASK...ICU PA AUPDATED/AWARE Original Note: CARE ASSUMED 23:15...AWAKE...SPEECH SOFT...VAGUE RESPONSES BUT CO-OPERATIVE/FOLLOWS COMMANDS...BP STABLE..ATRIAL FIB CONTROLLED RATE WITH CARDIZEM 10 MG/HR...O2 15 L/M VIA HOOKS CANNULA...TACHYPNEIC...RR 20-38..REMAINS WITH DIFFUSE CRACKLES...SAO2 85-86%....FLUID BALANCE AND ALBUMEN LEVEL REVIEWED WITH PA...LASIX 20MG IV X2 DOSES AND ALBUMEN 25 GRAMS X2 DOSES GIVEN...MARGINAL DIURESIS...SAO2 DECRESED TO 82-83%...3RD DOSE LASIX 20 MG IV GIVEN...FOR AM BNP PER PA..DENIES DISCOMFORT...FENTANYL MAINTAINED 125 MCG/HR
[2020-12-24 05:11] LABS: VBG Base Excess 8.6 mmol/L; VBG HCO3 34 mmol/L (22-26); VBG pCO2 54 mmHg; VBG pO2 41 mmHg
[2020-12-24] MEDS: Pantoprazole Sodium 40 MG/10 ML VIAL IVPUSH (05:15)
[2020-12-24 05:19] LABS: Hemoglobin 9.6 g/dl (12.0-16.0); Mean Corpuscular Hemoglobin 29.8 pg (27.0-33.0); Mean Corpuscular Volume 93.2 fL (80.0-98.0); Mean Platelet Volume 9.9 fL (9.4-12.3); Platelet Count 162 X10*3/uL (160-400); Red Blood Count 3.22 X10*6/uL (4.20-5.50); Red Cell Distribution Width 13.2 % (11.0-16.0); White Blood Count 17.6 X10*3/uL (4.8-10.8)
[2020-12-24 05:39] LABS: Albumin Level 3.5 g/dL (3.5-5.0); Anion Gap 12 (12-20); Blood Urea Nitrogen 28 mg/dL (9-16); Calcium 7.9 mg/dL (8.4-10.2); Carbon Dioxide 30 mmol/L (22-29); Chloride 103 mmol/L (96-108); Creatinine Clr Calc Pharmacy 58.4; Estimated Glomerular Filt Rate > 60; Glucose Random 189 mg/dL (60-115); Phosphorus 2.5 mg/dL (2.7-4.5); Potassium 3.4 mmol/L (3.3-5.1); Sodium 142 mmol/L (135-145); Triglycerides 103 mg/dL
[2020-12-24 05:41] LABS: B Type Natriuretic Peptide 673 pg/mL (<100)
[2020-12-24 06:33] LABS: Venous Blood Gas Refer to POC result
[2020-12-24] MEDS: Enoxaparin Sodium 80 MG/0.8 ML SYRINGE 70 MG SUBCUT (07:21)
[2020-12-24] MEDS: fentaNYL citrate/PF 100 MCG/2 ML VIAL IVPUSH ×2 (11:22→11:25)
--- NOTE | 2020-12-24 11:27 | PM.CCPN ---
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.? 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 She has a no significant past medical history, although she reported taking ibuprofen twice a day for many years for arthritic pain. ?She also previously had a femoral hernia repair.? The patient is known to have DNR/DNI status.? Her healthcare proxy is one of the other Sisters, Sister Laurita Douglas. The patient presented to the ED ambulatory on December 15 complaining of coffee-ground emesis for the prior 3 days.? There was no diarrhea and mild epigastric pain.? Vital signs in the ED were unremarkable, although the patient was in atrial fibrillation with a controlled rate.? Physical exam including the abdominal exam were unremarkable.? Labs were notable for a leukocytosis, mild acute kidney injury, and moderate hyponatremia.? The hemoglobin was 13.7. On December 17, the patient underwent EGD which showed he 3 cm sliding hiatal hernia, and severe esophagitis.? There was 1.5 L of fluid that was suctioned out of the stomach.? The duodenum also showed severe scattered ulcerative duodenitis.? She was treated with PPI.? At some point she converted to SR. The patient had persistent pain with po intake.? On December 19, the patient underwent abdominal CT which showed a high-grade distal small-bowel obstruction secondary to what looks like a short segment of incarcerated small bowel within a right inguinal hernia.? The patient was seen urgently by Dr. Rice.? The bowel was felt to be compromised.? Plan was made to take the patient to the OR.? Preoperative placement of an NG tube was attempted but was unable. At operation, the patient vomited on induction of anesthesia.? The patient was intubated successfully, and 1200 cc was sucked out of the stomach.? At surgical exploration, the patient was found to have a right femoral hernia with previously placed mesh.? The mesh was removed.? The patient underwent resection of a 15 cm length of small-bowel, with [id number] primary anastomosis, which was then covered with peritoneum.? Mesh was used to close the femoral hernia.? At the end of the operation early yesterday morning, the patient was transferred to the ICU, still intubated and sedated.? Postop chest x-ray showed patchy bilateral airspace consolidations, very consistent with aspiration. A central venous line was placed.? During ultrasound for the line placement, it was noted that the patient had marked inspiratory venous collapse.? On placement of the central venous line, CVP was noted to be about 2 cm.? She was felt to be hypovolemic.? She was volume resuscitated with colloid.? Measured lactic acid was 1.1.? Blood cultures were drawn, and echo was done later in the evening (see below).? Later in the day, we were able to get the FiO2 down to 40%.? The patient was lightly sedated and easily arousable.? We kept her intubated because her respiratory rate and minute volume were elevated. Bedside ECHOCARDIOGRAM was notable for: 1. Normal LV function.? Ejection fraction at least 50%. 2. RV size and function normal. 3. 1+TR by color-tam, with CWD measuring 2.0 m/sec, or gradient of 16cm. 4. IVC measured about 1.7 cm, with maybe 20% inspiratory collapse.? Estimated CVP 8-10 mm.?? Estimated RVSP 24-26mm. She was extubated the next morning Dec 21 without incident.? She did relatively well throughout the day, altho respiratory excursion was on the shallow side, and she required low-dose Levophed.? She was taking ice chips with no problem.? Mental status was normal.? The next day, Dec 22 however, she was worse, with even more rapid shallow breathing, worse oxygenation, much higher levophed requirement, she went into afib, and her WBC was higher.? She was very tender on the lateral aspect of her upper right thigh.? We wanted to repeat CT scan but the patient declined and she and the healthcare proxy and the patient's family wanted no more interventions and wanted to focus more on comfort care.? We continued hemodynamic management and antibiotics.? We pulled the NG tube and changed her over to a Bridges nasal cannula. Yesterday morning Dec 23, the patient looks more alert, more animated, and was more cheery.? She felt and looked better and stronger.? Her RR was lower, chest excursion was slightly greater, and her Levophed dose was down and later tapered off.? But today she looks much worse.? Her breathing is more labored this morning we had to add the NRBFM to her 15L Bridges NC.? She is talking little, and her voice is a whisper.? RR is back up to mid 30?s, very shallow.? Sat is 91% on the 15L Bridges and 15+L NRBFM.? Trace accessory muscles.? Central venous blood gas this morning showed 7.40/54/+8 (PvCO2 up from 40).? HR is about 90, afib, BP about 115/50.? She remains afebrile.? She has no jugular venous distention.? Abdomen is nondistended.? The staple line of her incision is clean.? She has no tenderness on palpation of the thigh or the low abdomen. ?She has minimal edema.? Left arm is noticeably bigger than right. Yesterday she underwent US of the left arm.? No DVT of the arm but she was found to have thrombosis of the left IJV.? We started her on Lovenox. LABORATORY DATA:? As below.? Notably, white count down to 17 this morning.? Serum sodium and renal indices up slightly w diuresis.? BNP up slightly. MICROBIOLOGY:? Sputum Gram stain from 12/20 showed 4+ polys, 2+ g positive rods, 1+ Gram-positive cocci.? Cultures growing 4+ Enterobacter, mostly sensitive. ANTIBIOTICS:? Zosyn day# 5. PATHOLOGY:? The 12 cm segment of small bowel showed ischemic enteritis. IMPRESSION: 1. Complete small bowel obstruction with ischemic small bowel secondary to incarcerated femoral hernia.? S/p operative repair. 2. S/p aspiration on induction of anesthesia, resulting in aspiration pneumonia and acute respiratory failure. 3. Acute respiratory failure.? Doing significantly worse today, and starting to retain CO2.? Opiates for work of breathing, and we?ve adequately diuresed her. 4. Hypotension.? Resolved. 5. DVT left IJV.? Anticoagulated with bid Lovenox. 6. ID.? Plan 5-7 day course of Zosyn. 7. At least moderate if not severe protein calorie malnutrition.? TPN for now, advancing diet as tolerated.? No feeding tubes per patient and HCP. I spoke to the patient?s HCP, Sister Laruita Douglas, and the patient?s biological family at length on Dec 22 about my concerns and her prognosis.? The patient did not want to undergo any more invasive management or tests, and the family agreed.? We agreed to focus more on comfort.? DNR orders were written.? Yesterday we were more hopeful, but today the situation is clear.? She?s dying.? Everyone can see that, including the HCP, who wants to change to comfort measures status and let her in peace.? We are all in agreement. Comfort measures only orders written. We turned the diltiazem off, stopped the abx, removed the NRBFM, upped the fentanyl, and gave her dilaudid to calm her breathing.? At 3pm she looks very comfortable on 2L NC oxygen.? RR is 18, shallow.? The HCP and the patient?s (biological) sister is at the bedside. Discussed with Dr. Rice. Critical care time:? 60+ minutes. Critical Care Time (minutes): 60 Physical Exam Vital Signs: Vital Signs: Last Vital Signs Temp 99.0 F 12/24/20 08:00 Pulse 95 12/24/20 11:00 Resp 33 H 12/24/20 11:23 BP 122/53 L 12/24/20 11:00 Pulse Ox 92 12/24/20 11:00 Body Mass Index 28.1 Objective Data Labs CBC & Chem 7: 12/24/20 05:05 12/24/20 05:05 Labs: Laboratory Results - last 24 hr 12/24/20 12/24/20 12/24/20 05:05 05:05 05:05 WBC 17.6 H RBC 3.22 L Hgb 9.6 L Hct 30.0 L MCV 93.2 MCH 29.8 MCHC 32.0 RDW 13.2 Plt Count 162 MPV 9.9 Absolute Nucleated RBC 0.000 Nucleated RBC % (auto) 0.0 VBG pH VBG pCO2 VBG pO2 VBG HCO3 VBG O2 Saturation VBG Base Excess Sodium 142 Potassium 3.4 Chloride 103 Carbon Dioxide 30 H Anion Gap 12 BUN 28 H Creatinine 0.73 Estim Creat Clear Calc 58.4 Estimated GFR > 60 Random Glucose 189 H Calcium 7.9 L Phosphorus 2.5 L Magnesium 2.0 B-Natriuretic Peptide 673 H Albumin 3.5 D Triglycerides 103 12/24/20 05:05 WBC RBC Hgb Hct MCV MCH MCHC RDW Plt Count MPV Absolute Nucleated RBC Nucleated RBC % (auto) VBG pH 7.40 VBG pCO2 54 VBG pO2 41 VBG HCO3 34 H VBG O2 Saturation 65.0 VBG Base Excess 8.6 Sodium Potassium Chloride Carbon Dioxide Anion Gap BUN Creatinine Estim Creat Clear Calc Estimated GFR Random Glucose Calcium Phosphorus Magnesium B-Natriuretic Peptide Albumin Triglycerides Microbiology Microbiology Results: Microbiology 12/20/20 12:18 Sputum - Suctioned Gram Stain - Final 12/20/20 12:18 Sputum - Suctioned Sputum Culture - Final Enterobacter cloacae complex 12/20/20 12:15 Blood - Central Line Blood Culture - Preliminary No growth after 48 hours. 12/20/20 12:15 Blood - Central Line Blood Culture - Preliminary No growth after 48 hours. Quality Stroke Does the patient have a stroke diagnosis?: No VTE Prior VTE?: No VTE Risk Level:: Medical - moderate - high VTE Device Contraindication: N/A - Device Ordered VTE Drug Contraindication: Treatment Not Indicated Critical Care Time Critical Care Time (minutes): 60
[2020-12-24] MEDS: LORazepam 2 MG/ML VIAL 1 MG IVPUSH (11:31)
[2020-12-24] MEDS: HYDROmorphone HCl 2 MG/ML VIAL IVPUSH (11:32)
--- NOTE | 2020-12-24 11:52 | MHC.CM.PN ---
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 Laurita Friend's wishes after discussion with MD: Sr. Shay will remain with pt at this time. CM to follow for any changes in plan
--- NOTE | 2020-12-24 12:21 | MHC.CLN ---
Addendum entered by Aimee Bradley, GABINO 12/24/20 13:17: AGREE WITH PROVIDER'S ASSESSMENT BELOW Original Note: F/U DIET RX: FULL LIQUID PT RECEIVING TPN D15 AA5% AT 65 ML/HOUR WITH 20% LIPIDS AT 16 ML/HOUR TO PROVIDE 1492 KCALS, 78 GRAMS PROTEIN PRIMARY GOAL IS COMFORT WILL FOLLOW WITH TEAM
[2020-12-24] MEDS: fentaNYL citrate/NS 1,000 MCG/100 ML PLAST..BAG 20 MCG IVCONT (14:42)
--- NOTE | 2020-12-24 15:20 | PM.EVENT ---
Event Note Date of Service: 12/24/20 Event Note: Patient now comfort measures only All forms of support has been withdrawn Family have been involved with the decision making
--- NOTE | 2020-12-24 17:47 | PC.NURSE ---
Patient at 1703, asystole on tele. Md aware. Patient's health care Proxy Laurita and patient's biological sister Brittany notified of patient's passing (both present at bedside earlier today). Post mortem care given. [employer] notified and case declined by kiosk sales representative Donald . 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 Yellow and white rosary beads and one gold ring remained on patient's person. All documentation completed. [facility] supervisor real estate office made aware.
--- NOTE | 2020-12-24 20:06 | P.DN_ITS ---
Discharge Sum: Prov Provider Primary care physician: Nayan Chavez MD Admitting clinician: Jeff Oates Attending physician on admission: Jessica Wahl Consults: 12/16/20 06:00 Consult to Nephrology Routine Consulting Provider: [facility] Reason for consultation: Hyponatremia Has provider been notified: No 12/20/20 01:53 Consult to General Surgery Routine Consulting Provider: Shaye Rice Reason for consultation: consult Has provider been notified: Yes Pronouncing clinician: Jeff Oates Discharge Sum: Diag Contributing Factors (1) Incarcerated right inguinal hernia: (2) DVT (deep venous thrombosis): (3) Atrial fibrillation with RVR: (4) Small bowel obstruction: (5) Hematemesis: (6) Acute hyponatremia: Discharge Sum: Summary Date and Time Date of admission: 12/15/20 22:48 Date of : 12/24/20 Time of : 17:03 Summary Details: [place] [id number] Critical Care Progress Note Signed with Addenda Patient: Lori Dallas MR#: [id number] : 1935 Acct:[id number] Age/Sex: 85 / F Loc: [facility] 255-1 ?? ? Attending Dr: Jeff Oates MD cc: ~ ADDENDUMADDENDUM: Over the afternoon, the patient's breathing slowed, and she became somnolent.? She looked very comfortable. She very peacefully at 17:03. 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.? 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 She has a no significant past medical history, although she reported taking ibuprofen twice a day for many years for arthritic pain. ?She also previously had a femoral hernia repair. ? The patient is known to have DNR/DNI status.? Her healthcare proxy is one of the other Sisters, Sister Laurita Douglas. The patient presented to the ED ambulatory on December 15 complaining of coffee-ground emesis for the prior 3 days.? There was no diarrhea and mild epigastric pain.? Vital signs in the ED were unremarkable, although the patient was in atrial fibrillation with a controlled rate.? Physical exam including the abdominal exam were unremarkable.? Labs were notable for a leukocytosis, mild acute kidney injury, and moderate hyponatremia.? The hemoglobin was 13.7. On December 17, the patient underwent EGD which showed he 3 cm sliding hiatal hernia, and severe esophagitis.? There was 1.5 L of fluid that was suctioned out of the stomach.? The duodenum also showed severe scattered ulcerative duodenitis.? She was treated with PPI.? At some point she converted to SR. The patient had persistent pain with po intake.? On December 19, the patient underwent abdominal CT which showed a high-grade distal small-bowel obstruction secondary to what looks like a short segment of incarcerated small bowel within a right inguinal hernia.? The patient was seen urgently by Dr. Rice.? The bowel was felt to be compromised.? Plan was made to take the patient to the OR.? Preoperative placement of an NG tube was attempted but was unable. At operation, the patient vomited on induction of anesthesia.? The patient was intubated successfully, and 1200 cc was suctioned out of the stomach.? At jerry gical exploration, the patient was found to have a right femoral hernia with previously placed mesh.? The mesh was removed.? The patient underwent resection of a 15 cm length of small-bowel, with [id number] primary anastomosis, which was then covered with peritoneum.? Mesh was used to close the femoral hernia.? At the end of the operation early yesterday morning, the patient was transferred to the ICU, still intubated and sedated.? Postop chest x-ray showed patchy bilateral airspace consolidations, very consistent with aspiration. We kept her intubated because her respiratory rate and minute volume were elevated. Bedside ECHOCARDIOGRAM was notable for: ?1. Normal LV function.? Ejection fraction at least 50%. ?2. RV size and function normal. ?3. 1+TR by color-tam, with CWD measuring 2.0 m/sec, or gradient of 16cm. ?4. IVC measured about 1.7 cm, with maybe 20% inspiratory collapse.? Estimated CVP 8-10 mm.?? Estimated RVSP 24-26mm. She was extubated the next morning Dec 21 without incident.? She did relatively well throughout the day, altho respiratory excursion was on the shallow side, and she required low-dose Levophed.? She was taking ice chips with no problem.? Mental status was normal.? The next day, Dec 22 however, she was worse, with even more rapid shallow breathing, worse oxygenation, much higher levophed requirement, she went into afib, and her WBC was higher.? She was very tender on the lateral aspect of her upper right thigh.? We wanted to repeat CT scan but the patient declined and she and the healthcare proxy and the patient's family wanted no more interventions and wanted to focus more on comfort care.? We continued hemodynamic management and antibiotics.? We pulled the NG tube and apoorva nged her over to a Bridges nasal cannula. Dec 23, the patient looks more alert, more animated, and was more cheery.? She felt and looked better and stronger.? Her RR was lower, chest excursion was slightly greater, and her Levophed dose was down and later tapered off.? Today she looks much worse, talking less and voice is a whisper. Her breathing is more labored, sat is 91% on the 15L Bridges and 15+L NRBFM.? RR is back up to mid 30?s, very shallow.? Trace accessory muscles.? Central venous blood gas this morning showed 7.40/54/+8 (PvCO2 up from 40).? HR is about 90, afib, BP about 115/50.? She remains afebrile.? She has no jugular venous distention.? Abdomen is nondistended.? The staple line of her incision is clean.? She has no tenderness on palpation of the thigh or the low abdomen. ?She has minimal edema.? Left arm is noticeably bigger than right. Yesterday she underwent US of the left arm.? No DVT of the arm but she was found to have thrombosis of the left IJV.? We started her on Lovenox. Friends and family were with the pt today, Pt passed at 1703. Additional Data Confirmation of as documented by pronouncing clinician: no pulse, no respirations and no heart sounds Family: contacted Attending/PCP notified?: Yes Attending physician: Jeff Oates MD Was code activated?: No Autopsy requested?: No computer forensics examiner notified?: No Organ bank notified?: Yes Advance directives: Yes Hospice patient?: No
--- NOTE | 2020-12-27 12:57 | PM.DDS ---
Discharge Sum: Prov Provider Primary care physician: Nayan Chavez MD Consults: 12/16/20 06:00 Consult to Nephrology Routine Consulting Provider: [facility] Reason for consultation: Hyponatremia Has provider been notified: No 12/20/20 01:53 Consult to General Surgery Routine Consulting Provider: Shaye Rice Reason for consultation: consult Has provider been notified: Yes Discharge Sum: Diag Contributing Factors (1) Incarcerated right inguinal hernia: (2) DVT (deep venous thrombosis): (3) Atrial fibrillation with RVR: (4) Small bowel obstruction: (5) Hematemesis: (6) Acute hyponatremia: Discharge Sum: Summary Date and Time Date of admission: 12/15/20 22:48 Date of : 12/24/20 Time of : 17:03 Summary Details: ? NOTE DISCHARGE DIAGNOSES: 1.?Hematemesis 2. Complete small bowel obstruction with ischemic small bowel secondary to incarcerated femoral hernia. 3. S/p aspiration on induction of anesthesia 4. Aspiration pneumonia 5. Acute respiratory failure. 6. Atrial fibrillation. 7. DVT of left IJV. 8. At least moderate if not severe protein calorie malnutrition. 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.? 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 She had a no significant past medical history, although she reported taking ibuprofen twice a day for many years for arthritic pain.? She also previously had a femoral hernia repair.? The patient was known to have DNR/DNI status.? Her healthcare proxy was one of the other Sisters, Sister Laurita Douglas. The patient presented to the [facility] ED ambulatory on December 15 complaining of coffee-ground emesis for the prior 3 days.? There was no diarrhea and mild epigastric pain.? Vital signs in the ED were unremarkable, although the patient was in atrial fibrillation with a controlled rate.? Physical exam including the abdominal exam were unremarkable.? Labs were notable for a leukocytosis, mild acute kidney injury, and moderate hyponatremia.? The hemoglobin was 13.7. On December 17, the patient underwent EGD which showed he 3 cm sliding hiatal hernia, and severe esophagitis.? There was 1.5 L of fluid that was suctioned out of the stomach.? The duodenum also showed severe scattered ulcerative duodenitis.? She was treated with PPI.? At some point she converted to SR. The patient had persistent pain with po intake.? On December 19, the patient underwent abdominal CT which showed a high-grade distal small-bowel obstruction secondary to what looks like a short segment of incarcerated small bowel within a right inguinal hernia.? The patient was seen urgently by Dr. iRce.? The bowel was felt to be compromised.? Plan was made to take the patient to the OR.? Preoperative placement of an NG tube was attempted but was unable. At operation, the patient vomited on induction of anesthesia.? The patient was intubated successfully, and 1200 cc was sucked out of the stomach.? At surgical exploration, the patient was found to have a right femoral hernia with previously placed mesh.? The mesh was removed.? The patient underwent resection of a 15 cm length of small-bowel, with [id number] primary anastomosis, which was then covered with peritoneum.? Mesh was used to close the femoral hernia.? At the end of the operation early yesterday morning, the patient was transferred to the ICU, still intubated and sedated.? Postop chest x-ray showed patchy bilateral airspace consolidations, very consistent with aspiration. A central venous line was placed.? During ultrasound for the line placement, it was noted that the patient had marked inspiratory venous collapse.? On placement of the central venous line, CVP was noted to be about 2 cm.? She was felt to be hypovolemic.? She was volume resuscitated with colloid.? Measured lactic acid was 1.1.? Blood cultures were drawn, and echo was done later in the evening (see below).? Later in the day, we were able to get the FiO2 down to 40%.? The patient was lightly sedated and easily arousable.? We kept her intubated because her respiratory rate and minute volume were elevated. Bedside ECHOCARDIOGRAM was notable for: 1. Normal LV function.? Ejection fraction at least 50%. 2. RV size and function normal. 3. 1+TR by color-tam, with CWD measuring 2.0 m/sec, or gradient of 16cm. 4. IVC measured about 1.7 cm, with maybe 20% inspiratory collapse.? Estimated CVP 8-10 mm.?? Estimated RVSP 24-26mm. She was extubated the next morning Dec 21 without incident.? She did relatively well throughout the day, altho respiratory excursion was on the shallow side, and she required low-dose Levophed.? She was taking ice chips with no problem.? Mental status was normal.? The next day, Dec 22 however, she was worse, with even more rapid shallow breathing, worse oxygenation, much higher levophed requirement, she went into afib, and her WBC was higher.? She was very tender on the lateral aspect of her upper right thigh.? We wanted to repeat CT scan but the patient declined and she and the healthcare proxy and the patient's family wanted no more interventions and wanted to focus more on comfort care.? We continued hemodynamic management and antibiotics.? We pulled the NG tube and changed her over to a Brid[place] nasal cannula. Dec 23, the patient looks more alert, more animated, and was more cheery.? She felt and looked better and stronger.? Her RR was lower, chest excursion was slightly greater, and her Levophed dose was down and later tapered off.? But the next day, Dec 24, she looked much worse.? Her breathing was more labored and we had to add the NRBFM to her 15L Bridges NC.? She was talking little, and her voice was a whisper.? RR was back up to mid 30?s, very shallow.? Sat was 91% on the 15L Bridges and 15+L NRBFM.? Trace accessory muscles.? Central venous blood gas showed 7.40/54/+8 (PvCO2 up from 40).? HR was about 90, afib, BP about 115/50.? She remained afebrile.? She had no jugular venous distention.? Abdomen was nondistended.? The staple line of her incision was clean.? She had no tenderness on palpation of the thigh or the low abdomen.? She had minimal edema.? Left arm was noticeably bigger than right.? The day prior she underwent US of the left arm.? No DVT of the arm was found but she was found to have thrombosis of the left IJV.? She was started her on Lovenox. The patient?s situation had been discussed previously with herself, and during her hospital course we spoke with the patient?s HCP, Sister Laurita Douglas, and the patient?s biological family at length.? The patient did not want to undergo any more invasive management or tests, and the family and her HCP agreed.? With her looking much worse on Dec 24, it was clear that she was dying.? Everyone agreed on comfort measures only status. Over the afternoon, the patient's breathing slowed, and she became somnolent.? She looked very comfortable.? She very peacefully at 17:03. Additional Data Attending physician: Jeff Oates MD
== END 2020-12-24 17:03 | disposition expired | DRG 329 ==
LOC: HO.ED 16:24 → HO.EDOVER 22:53 → HO.IMC 12-16 05:24 → HO.ICU 12-20 01:34
PROVIDERS: Hospitalist; Internal Medicine Gastroenterology; Physician Assistant; Physician Assistant Medical; Surgery; Admitting Provider Internal Medicine; Emergency Provider Emergency Medicine; PCP Internal Medicine Medical Oncology; Visit Provider Anesthesiology
PROC: 0DJ08ZZ Inspection of Upper Intestinal Tract, Via Natural or Artificial Opening Endoscopic (ICD-10-PCS; CPT 43235; principal; 2020-12-17 12:30)
PROC: 0DB80ZZ Excision of Small Intestine, Open Approach (ICD-10-PCS; principal; 2020-12-19 20:00)
DX: K29.81 Duodenitis with bleeding (principal); J69.0 Pneumonitis due to inhalation of food and vomit; E43 Unspecified severe protein-calorie malnutrition; J96.00 Acute respiratory failure, unspecified whether with hypoxia or hypercapnia; K40.31 Unilateral inguinal hernia, with obstruction, without gangrene, recurrent; E87.1 Hypo-osmolality and hyponatremia; J95.89 Other postprocedural complications and disorders of respiratory system, not elsewhere classified; N17.9 Acute kidney failure, unspecified; K20.91 Esophagitis, unspecified with bleeding; K29.71 Gastritis, unspecified, with bleeding; K44.9 Diaphragmatic hernia without obstruction or gangrene; R00.0 Tachycardia, unspecified; E86.0 Dehydration; Z68.28 Body mass index [BMI] 28.0-28.9, adult; I48.91 Unspecified atrial fibrillation; I95.9 Hypotension, unspecified; E87.6 Hypokalemia; Z20.822 Contact with and (suspected) exposure to COVID-19; Z79.1 Long term (current) use of non-steroidal anti-inflammatories (NSAID); Z79.899 Other long term (current) drug therapy; Z66 Do not resuscitate
CPT/HCPCS: 36415; 36600; 71045; 74018; 74177; 80048; 80053; 80076; 81001; 81003; 82040; 82803; 83605; 83690; 83735; 83880; 83930; 83935; 84100; 84145; 84300; 84478; 84484; 85007; 85025; 85027; 85610; 85730; 87040; 87070; 87077; 87186; 87205; 87635; 88302; 88305; 88307; 88342; 93005; 93306; 93971; 94002; 94003; 96361; 96374; 96375; 99024; 99285; C1781; J0131; J0610; J1100; J1170; J1650; J1940; J2060; J2270; J2370; J2405; J2543; J3010; J3370; J3475; P9047; Q9967